=== PATIENT | male | born 1955 | race Caucasian/White ===

== ENCOUNTER 2017-08-23 16:26 | Emergency (ER) | payer OTHER ==
[2017-08-23] MEDS ORDERED: SODIUM CHLORIDE 0.9% 1,000 ML IV STA (16:46)
[2017-08-23] MEDS ORDERED: RX INFO: IV CONTRAST WAS GIVEN 1 EACH MISC MISCELLANE PRN (16:46)
[2017-08-23 17:04] LABS: Basophils % (A) 0 %; Eosinophils # (A) 0.3 k/uL (0-0.7); Eosinophils % (A) 3 %; HCT 40.7 % (39.0-53.0); Lymphocytes # (A) 1.6 k/uL (1.0-4.8); Lymphocytes % (A) 14 %; MCH 30.2 pg (25.0-35.0); MCHC 34.3 g/dL (31.0-37.0); MCV 88.1 fL (80.0-100.0); Mean Platelet Volume 7.6; Monocytes # (A) 0.6 k/uL (0-1.0); Monocytes % (A) 6 %; Neutrophils # (A) 8.4 k/uL (1.3-7.7); Neutrophils % (A) 75 %; Platelet Count 220 k/uL (150-450); RBC 4.62 m/uL (4.30-5.90); RDW 12.7 % (11.5-15.5); WBC 11.2 k/uL (3.8-10.6)
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
[2017-08-23 17:18] LABS: Partial Thromboplastin Time 22.5 sec (22.0-30.0); Prothrombin Time 9.7 sec (9.0-12.0)
[2017-08-23 17:22] LABS: ALT 54 U/L (21-72); AST 26 U/L (17-59); Albumin 3.9 g/dL (3.5-5.0); Alkaline Phosphatase 107 U/L (38-126); Anion Gap 13 mmol/L; Blood Urea Nitrogen 17 mg/dL (9-20); Calcium 9.1 mg/dL (8.4-10.2); Carbon Dioxide 23 mmol/L (22-30); Chloride 103 mmol/L (98-107); Glucose 166 mg/dL (74-99); Sodium 139 mmol/L (137-145); Total Bilirubin 0.5 mg/dL (0.2-1.3); Total Protein 6.9 g/dL (6.3-8.2)
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
[2017-08-23] MEDS ORDERED: DIPH,PERTUS(ACELL)TETVAC-LF 0.5 ML VIAL IM ONE (18:44)
[2017-08-23] MEDS ORDERED: MORPHINE SULFATE 4 MG/ML SYRINGE IV STA (18:44)
[2017-08-23] MEDS ORDERED: ONDANSETRON 4 MG/2 ML VIAL IVP STA (18:44)
[2017-08-23 18:47] VITALS: RESP 18
[2017-08-23 19:41] VITALS: BP 133/74; PULSE 75; TEMP 98.2
== END 2017-08-23 19:40 | disposition home or self-care (01) ==
LOC: EC 16:26
DX: S22.41XA Multiple fractures of ribs, right side, initial encounter for closed fracture (principal); J32.9 Chronic sinusitis, unspecified; I10 Essential (primary) hypertension; S01.511A Laceration without foreign body of lip, initial encounter; M48.02 Spinal stenosis, cervical region; K40.90 Unilateral inguinal hernia, without obstruction or gangrene, not specified as recurrent; M40.202 Unspecified kyphosis, cervical region; Z79.899 Other long term (current) drug therapy; Z23 Encounter for immunization; V89.2XXA Person injured in unspecified motor-vehicle accident, traffic, initial encounter; Y92.410 Unspecified street and highway as the place of occurrence of the external cause
CPT/HCPCS: 36415; 93005; 80053; 84484; 85025; 85610; 85730; 73630; 72125; 70450; 71260; 74177; 90715; 99285; 96374; 96375; 96361 ×3; 90471; J2270; J2405; Q9967

== ENCOUNTER → 2017-09-03 | Outpatient (CLI) | payer SELFPAY ==
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
== END | disposition home or self-care (01) ==
LOC: RADXRMAIN 13:32
PROVIDERS: ATTEND Family Medicine
DX: S92.324A Nondisplaced fracture of second metatarsal bone, right foot, initial encounter for closed fracture (principal); V89.2XXA Person injured in unspecified motor-vehicle accident, traffic, initial encounter

== ENCOUNTER 2018-01-02 10:47 | Inpatient (IN) | payer OTHER ==
[2018-01-02] MEDS ORDERED: ONDANSETRON 4 MG/2 ML VIAL IVP STA (11:14)
[2018-01-02] MEDS ORDERED: MORPHINE SULFATE 2 MG/ML SYRINGE IV STA (11:14)
[2018-01-02] MEDS ORDERED: SODIUM CHLORIDE 0.9% 1,000 ML IV STA ×2 (11:14)
[2018-01-02] MEDS ORDERED: PANTOPRAZOLE 40 MG/10 ML VIAL IVP STA (11:14)
[2018-01-02 11:46] LABS: Basophils % (A) 0 %; Eosinophils # (A) 0.2 k/uL (0-0.7); Eosinophils % (A) 1 %; HCT 42.3 % (39.0-53.0); HGB 14.3 gm/dL (13.0-17.5); Lymphocytes % (A) 9 %; MCH 29.7 pg (25.0-35.0); MCHC 33.7 g/dL (31.0-37.0); MCV 88.1 fL (80.0-100.0); Mean Platelet Volume 7.4; Monocytes # (A) 0.7 k/uL (0-1.0); Monocytes % (A) 7 %; Neutrophils % (A) 81 %; Platelet Count 237 k/uL (150-450); RDW 12.5 % (11.5-15.5); WBC 11.1 k/uL (3.8-10.6)
[2018-01-02 11:50] LABS: ALT 153 U/L (21-72); AST 75 U/L (17-59); Albumin 4.2 g/dL (3.5-5.0); Alkaline Phosphatase 187 U/L (38-126); Amylase 92 U/L (30-110); Anion Gap 11 mmol/L; Blood Urea Nitrogen 15 mg/dL (9-20); Carbon Dioxide 23 mmol/L (22-30); Chloride 103 mmol/L (98-107); Glucose 221 mg/dL (74-99); Lipase 921 U/L (23-300); Partial Thromboplastin Time 24.6 sec (22.0-30.0); Prothrombin Time 9.7 sec (9.0-12.0); Sodium 137 mmol/L (137-145); Total Bilirubin 0.7 mg/dL (0.2-1.3); Total Protein 6.8 g/dL (6.3-8.2)
[2018-01-02 12:10] LABS: Potassium 4.5 mmol/L (3.5-5.1)
--- NOTE | 2018-01-02 12:21 | XR ---
EXAMINATION TYPE: XR abdomen acute w cxr DATE OF EXAM: 01/02/2018 COMPARISON: NONE HISTORY: Pain TECHNIQUE: Single view of the chest and 2 views of the abdomen are submitted. FINDINGS: Single view of the chest fails demonstrate evidence for acute pulmonary disease. There is no evidence for pneumoperitoneum. The bowel gas pattern is unremarkable as there is air throughout nondilated small and large bowel. No sizeable air fluid levels.No mass effects are seen. No unusual calcifications. Pelvic phleboliths noted. IMPRESSION: 1. Unremarkable study.
[2018-01-02] MEDS ORDERED: MORPHINE SULFATE 2 MG/ML SYRINGE IV ONE (13:00)
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
[2018-01-02] MEDS ORDERED: NALOXONE 0.4 MG/ML 1 ML VIAL IV PRN (13:06)
[2018-01-02] MEDS ORDERED: ACETAMINOPHEN TAB 325 MG TAB PO PRN (13:06)
[2018-01-02] MEDS ORDERED: ONDANSETRON 4 MG/2 ML VIAL IVP PRN ×2 (13:06→15:13)
[2018-01-02] MEDS ORDERED: ONDANSETRON 8 MG in SODIUM CHLORIDE 0.9% 50 ML IVPB PRN (13:21)
[2018-01-02] MEDS ORDERED: IOPAMIDOL-300 CONTRAST 30 ML VIAL (ORAL USE) PO PRN (13:32)
[2018-01-02] MEDS ORDERED: THIAMINE 100 MG/ML 2 ML VIAL IM STA (13:47)
[2018-01-02] MEDS ORDERED: LORazepam 2 MG/ML INJ IV PRN ×3 (13:47)
--- NOTE | 2018-01-02 13:47 | P.HPIM ---
History of Present Illness H&P Date: 01/02/18 Chief Complaint: Epigastric abdominal pain This is a 62-year-old male, patient of [facility]. He has a known past medical history of hypertension, diabetes mellitus type 2, pancreatitis and daily alcohol use. Patient presents to the emergency room with chief complaint of abdominal pain in the epigastric area. Patient reports that it radiates across the upper abdomen. I he is also been having some nausea no actual vomiting. No change in bowel movements. Patient has been diagnosed with pancreatitis back in August and has been having off-and-on abdominal discomfort since then. His symptoms became very severe around 5:00 this morning no pain relief with his [place]. Therefore he presented to the emergency room. He reports yesterday he had been seen by a GI specialist, Dr. Beltran out of [place] and had undergone endoscopic ultrasound. Patient was told that his pancreas was inflamed. ER is trying to obtain this report. Abdominal x-ray completed which was unremarkable. White count 11.1, AST 75 ALT 153 alk phos 187 , lipase 921 and amylase 92. Patient's been diagnosed with an acute pancreatitis. GI service has been consulted. A computed tomography scan of the abdomen and pelvis with contrast will be ordered. Patient is started on normal saline at 100 mL an hour. Keep nothing by mouth. Zofran and Protonix also ordered. Patient denies any fever or chills or sweats. Denies any chest pain or shortness of breath. Denies any bowel movement changes or burning with urination. Patient drinks about 2-3 beers daily. Patient has been educated that he needs to stop drinking alcohol. Patient denies any history of gallstones or high triglycerides. Patient receiving IV morphine as needed for pain control Review of Systems Please refer to HPI otherwise unremarkable Past Medical History Past Medical History: Hypertension Additional Past Medical History / Comment(s): pancreatitis History of Any Multi-Drug Resistant Organisms: None Reported Past Surgical History: Appendectomy Past Psychological History: No Psychological Hx Reported Smoking Status: Former smoker Past Alcohol Use History: Daily Past Drug Use History: None Reported Medications and Allergies Home Medications Medication Instructions Recorded Confirmed Type Lisinopril [Zestril] 5 mg PO DAILY 08/23/17 01/02/18 History Dicyclomine [Bentyl] 20 mg PO BID 01/02/18 01/02/18 History HYDROcodone/APAP 10-325MG [[place] 1 tab PO BID 01/02/18 01/02/18 History 10-325] Naproxen 500 mg PO BID 01/02/18 01/02/18 History Omeprazole 40 mg PO DAILY 01/02/18 01/02/18 History Ondansetron [Zofran] 4 mg PO TID PRN 01/02/18 01/02/18 History metFORMIN HCL [Glucophage] 500 mg PO DAILY 01/02/18 01/02/18 History Allergies Allergy/AdvReac Type Severity Reaction Status Date / Time No Known Allergies Allergy Verified 01/02/18 11:06 Physical Exam Vitals: Vital Signs Temp Pulse Resp BP Pulse Ox 01/02/18 13:30 97.9 F 68 18 160/80 98 01/02/18 10:52 97.7 F 64 18 149/89 98 Intake and Output 01/01/18 01/02/18 01/02/18 22:59 06:59 14:59 Other: Weight 94.256 kg Head normocephalic Neck supple Lungs clear to auscultation bilaterally no wheezing or crackles Heart regular rate and rhythm S1-S2, no rub or gallop Abdomen is soft epigastric tenderness nondistended positive bowel sounds no hepatosplenomegaly Extremities no edema Neuro alert and orientated to 3 Results CBC & Chem 7: 01/02/18 11:32 01/02/18 11:32 Labs: Abnormal Lab Results - Last 24 Hours (Table) 01/02/18 01/02/18 Range/Units 11:32 11:32 WBC 11.1 H (3.8-10.6) k/uL Neutrophils # 9.0 H (1.3-7.7) k/uL Glucose 221 H (74-99) mg/dL AST 75 H (17-59) U/L ALT 153 H (21-72) U/L Alkaline Phosphatase 187 H (38-126) U/L Lipase 921 H (23-300) U/L Assessment and Plan Assessment: 1. Acute pancreatitis: Likely secondary to alcohol. However, LFTs are elevated. Also need to evaluate for gallstone pancreatitis. GI service consulted. Computed tomography scan of the abdomen with contrast has been ordered. Start IV fluids normal saline at 100 mL an hour. Continue IV morphine and [place] for pain control. Keep nothing by mouth except meds. Repeat amylase lipase and LFTs in a.m. Lipase 921, AST 75, ALT 153 and alk phos 187 2. Essential hypertension: Resume lisinopril 3. Diabetes mellitus type 2: Hold metformin during hospitalization. Place patient on sliding scale coverage 4. Leukocytosis likely secondary to the pancreatitis. Repeat in a.m. Continue to monitor. 5. Daily alcohol use: Placed patient on the CIWA protocol with multivitamin and thiamine and folic acid GI and DVT prophylaxis Protonix and Lovenox Time with Patient: Greater than 30 (Greater than 60% of the total time spent in counseling and coordination of care.I performed an examination of the patient and discussed their management with the physician Post Production Assistant. I have reviewed the Physician Post Production Assistant's notes and agree with the documented findings and plan of care)
[2018-01-02] MEDS: MORPHINE SULFATE 2 MG/ML SYRINGE IV PRN (16:54)
--- NOTE | 2018-01-02 17:06 | CT ---
EXAMINATION TYPE: CT abdomen pelvis w con DATE OF EXAM: 01/02/2018 REFERENCE: Previous study dated 08/23/2017. HISTORY: abdominal pain, pancreatitis HISTORY: Epigastric pain, nausea and vomiting x6 days. REFERENCE: NONE CT DLP: 2168.5 mGy Automated exposure control for dose reduction was used. TECHNIQUE: Helical acquisition through the abdomen and pelvis was obtained following the oral ingesti on of without Oral Contrast and following intravenous administration of 125ml mL of Isovue 370. The d maria esther was reformatted in axial, coronal and sagittal projections. FINDINGS: There is dependent atelectasis in the dependent portions of the lungs. There is no pleural or pericardial fluid. The heart is mildly enlarged. There is a small hiatal hernia. Within the abdomen, the liver is prominent measuring 23 cm. It is known attenuation and likely fatty infiltrated. The spleen and gallbladder are normal. Both adrenal glands are normal. Once again there is dilatation of the pancreatic duct proximally which measures approximately centime ters. There is peripancreatic inflammatory change. There is no pseudocyst formation. No pancreatic ma sses seen. Both kidneys demonstrate function and appear morphologically normal. There is no significant retroperitoneal, iliac or inguinal adenopathy. The bladder is unremarkable. There is minimal calcification of the prostate gland There is no significant diverticular change and there is no radiographic evidence of diverticulitis. The appendix is not visualized. There is a direct inguinal hernia on the right containing fat. The colon is peaking into it. Small bowel loops are unremarkable. There is no free fluid and no free air. There is hypertrophic spondylosis and facet arthropathy within the spine. There is a superior endplat e infraction of L2, unchanged from previous. IMPRESSION: 1. FINDINGS CONSISTENT WITH ACUTE PANCREATITIS. 2. HEPATOMEGALY AND FATTY INFILTRATION OF THE LIVER. 3. DIRECT INGUINAL HERNIA ON THE RIGHT CONTAINING FAT ONLY. 4. DEGENERATIVE CHANGES WITHIN THE SPINE. 5. SMALL HIATAL HERNIA.
[2018-01-02] MEDS: INSULIN ASPART 100 UNIT/ML 1 ML 10 ML VIAL SQ SCH ×2 (17:30→21:47)
[2018-01-02 17:44] LABS: Glucose,Whole Blood 163 mg/dL (75-99)
[2018-01-02 20:28] LABS: Glucose,Whole Blood 131 mg/dL (75-99)
[2018-01-02] MEDS: HYDROcodone/APAP 10-325MG 1 EACH TAB PO SCH (20:41)
[2018-01-02] MEDS: DICYCLOMINE 20 MG TAB PO SCH (20:41)
[2018-01-03 07:27] LABS: Glucose,Whole Blood 159 mg/dL (75-99)
[2018-01-03] MEDS ORDERED: metFORMIN 500 MG TAB PO SCH (07:30)
[2018-01-03] MEDS: INSULIN ASPART 100 UNIT/ML 1 ML 10 ML VIAL SQ SCH ×4 (07:40→21:25)
[2018-01-03] MEDS: ENOXAPARIN 40 MG/0.4 ML SYRINGE SQ SCH (07:42)
[2018-01-03] MEDS: THIAMINE 100 MG TAB PO SCH (07:42)
[2018-01-03] MEDS: LISINOPRIL 5 MG TAB PO SCH (07:42)
[2018-01-03] MEDS: PANTOPRAZOLE 40 MG/10 ML VIAL IV SCH (07:43)
[2018-01-03] MEDS: DICYCLOMINE 20 MG TAB PO SCH ×2 (07:44→21:24)
[2018-01-03 07:50] LABS: Basophils # (A) 0.1 k/uL (0-0.2); Basophils % (A) 1 %; Eosinophils # (A) 0.2 k/uL (0-0.7); Eosinophils % (A) 2 %; HCT 37.9 % (39.0-53.0); HGB 12.9 gm/dL (13.0-17.5); Lymphocytes # (A) 1.2 k/uL (1.0-4.8); Lymphocytes % (A) 14 %; MCH 30.7 pg (25.0-35.0); MCV 90.2 fL (80.0-100.0); Mean Platelet Volume 7.3; Monocytes # (A) 0.7 k/uL (0-1.0); Monocytes % (A) 8 %; Neutrophils # (A) 6.4 k/uL (1.3-7.7); Neutrophils % (A) 74 %; Platelet Count 245 k/uL (150-450); RDW 12.5 % (11.5-15.5); WBC 8.7 k/uL (3.8-10.6)
[2018-01-03] MEDS: HYDROcodone/APAP 10-325MG 1 EACH TAB PO SCH ×2 (07:50→21:24)
[2018-01-03 07:58] LABS: ALT 104 U/L (21-72); AST 31 U/L (17-59); Albumin 3.6 g/dL (3.5-5.0); Alkaline Phosphatase 142 U/L (38-126); Amylase 36 U/L (30-110); Anion Gap 8 mmol/L; Blood Urea Nitrogen 8 mg/dL (9-20); Calcium 8.6 mg/dL (8.4-10.2); Carbon Dioxide 28 mmol/L (22-30); Chloride 102 mmol/L (98-107); Glucose 161 mg/dL (74-99); Lipase 52 U/L (23-300); Potassium 4.6 mmol/L (3.5-5.1); Sodium 138 mmol/L (137-145); Total Bilirubin 0.8 mg/dL (0.2-1.3); Total Protein 5.9 g/dL (6.3-8.2)
[2018-01-03 11:36] LABS: Glucose,Whole Blood 160 mg/dL (75-99)
[2018-01-03] MEDS: FOLIC ACID 1 MG TAB PO SCH (12:34)
[2018-01-03] MEDS: MULTIVITAMINS, THERA 1 EACH TAB PO SCH (12:34)
--- NOTE | 2018-01-03 12:57 | P.PN ---
Subjective Progress Note Date: 01/03/18 This is a 62-year-old male, patient of [facility]. He has a known past medical history of hypertension, diabetes mellitus type 2, pancreatitis and daily alcohol use. Patient presents to the emergency room with chief complaint of abdominal pain in the epigastric area. Patient reports that it radiates across the upper abdomen. I he is also been having some nausea no actual vomiting. No change in bowel movements. Patient has been diagnosed with pancreatitis back in August and has been having off-and-on abdominal discomfort since then. His symptoms became very severe around 5:00 this morning no pain relief with his [place]. Therefore he presented to the emergency room. He reports yesterday he had been seen by a GI specialist, Dr. Beltran out of [place] and had undergone endoscopic ultrasound. Patient was told that his pancreas was inflamed. ER is trying to obtain this report. Abdominal x-ray completed which was unremarkable. White count 11.1, AST 75 ALT 153 alk phos 187 , lipase 921 and amylase 92. Patient's been diagnosed with an acute pancreatitis. GI service has been consulted. A computed tomography scan of the abdomen and pelvis with contrast will be ordered. Patient is started on normal saline at 100 mL an hour. Keep nothing by mouth. Zofran and Protonix also ordered. Patient denies any fever or chills or sweats. Denies any chest pain or shortness of breath. Denies any bowel movement changes or burning with urination. Patient drinks about 2-3 beers daily. Patient has been educated that he needs to stop drinking alcohol. Patient denies any history of gallstones or high triglycerides. Patient receiving IV morphine as needed for pain control Objective - Vital Signs Vital signs: Vital Signs Temp 98.3 F 01/03/18 05:00 Pulse 69 01/03/18 05:00 Resp 16 01/03/18 05:00 BP 133/76 01/03/18 05:00 Pulse Ox 94 L 01/03/18 05:00 Intake & Output 01/02/18 01/03/18 01/03/18 18:59 06:59 18:59 Intake Total 1150 Balance 1150 Weight 93.894 kg Intake: Intake, IV Titration 1150 Amount Sodium Chloride 0.9% 1, 1150 000 ml @ 100 mls/hr IV . Q10H STA Rx#:[id number] Other: # Voids 1 - Exam Head normocephalic and atraumatic Neck supple no JVD no goiter Lungs clear to auscultation bilaterally no wheezing or crackles Heart regular rate and rhythm S1-S2, no rub or gallop Abdomen is soft epigastric tenderness nondistended positive bowel sounds no hepatosplenomegaly Extremities no edema Neuro alert and orientated to 3 - Labs CBC & Chem 7: 01/03/18 07:03 01/03/18 07:03 Labs: Abnormal Lab Results - Last 24 Hours (Table) 01/02/18 01/02/18 01/02/18 Range/Units 11:33 17:11 20:27 RBC (4.30-5.90) m/uL Hgb (13.0-17.5) gm/dL Hct (39.0-53.0) % BUN (9-20) mg/dL Glucose (74-99) mg/dL POC Glucose (mg/dL) 163 H 131 H (75-99) mg/dL Hemoglobin A1c 8.0 H (4.0-6.0) % ALT (21-72) U/L Alkaline Phosphatase (38-126) U/L Total Protein (6.3-8.2) g/dL 01/03/18 01/03/18 01/03/18 Range/Units 07:03 07:03 07:25 RBC 4.20 L (4.30-5.90) m/uL Hgb 12.9 L (13.0-17.5) gm/dL Hct 37.9 L (39.0-53.0) % BUN 8 L (9-20) mg/dL Glucose 161 H (74-99) mg/dL POC Glucose (mg/dL) 159 H (75-99) mg/dL Hemoglobin A1c (4.0-6.0) % ALT 104 H (21-72) U/L Alkaline Phosphatase 142 H (38-126) U/L Total Protein 5.9 L (6.3-8.2) g/dL 01/03/18 Range/Units 11:20 RBC (4.30-5.90) m/uL Hgb (13.0-17.5) gm/dL Hct (39.0-53.0) % BUN (9-20) mg/dL Glucose (74-99) mg/dL POC Glucose (mg/dL) 160 H (75-99) mg/dL Hemoglobin A1c (4.0-6.0) % ALT (21-72) U/L Alkaline Phosphatase (38-126) U/L Total Protein (6.3-8.2) g/dL Assessment and Plan Plan: 1. Acute pancreatitis: Likely secondary to alcohol. However, LFTs are elevated. Also need to evaluate for gallstone pancreatitis. GI service consulted. Computed tomography scan of the abdomen with contrast has been ordered. Start IV fluids normal saline at 100 mL an hour. Continue IV morphine and [place] for pain control. Keep nothing by mouth except meds. Repeat amylase lipase and LFTs in a.m. Lipase 921 yesterday and down to 52 today, will start patient on full liquid diet and monitor 2. Essential hypertension: Resume lisinopril 3. Diabetes mellitus type 2: Hold metformin during hospitalization. Place patient on sliding scale coverage 4. Leukocytosis likely secondary to the pancreatitis. Repeat in a.m. Continue to monitor. 5. Daily alcohol use: Placed patient on the CIWA protocol with multivitamin and thiamine and folic acid GI and DVT prophylaxis Protonix and Lovenox
[2018-01-03 17:21] LABS: Glucose,Whole Blood 221 mg/dL (75-99)
[2018-01-03 20:39] LABS: Glucose,Whole Blood 195 mg/dL (75-99)
[2018-01-04 07:40] LABS: Glucose,Whole Blood 153 mg/dL (75-99)
[2018-01-04 07:46] LABS: Basophils % (A) 1 %; Eosinophils # (A) 0.3 k/uL (0-0.7); Eosinophils % (A) 4 %; HCT 39.8 % (39.0-53.0); HGB 13.1 gm/dL (13.0-17.5); Lymphocytes # (A) 1.6 k/uL (1.0-4.8); Lymphocytes % (A) 22 %; MCH 29.8 pg (25.0-35.0); MCV 90.3 fL (80.0-100.0); Mean Platelet Volume 7.2; Monocytes # (A) 0.6 k/uL (0-1.0); Monocytes % (A) 8 %; Neutrophils # (A) 4.5 k/uL (1.3-7.7); Neutrophils % (A) 63 %; Platelet Count 242 k/uL (150-450); RBC 4.41 m/uL (4.30-5.90); RDW 12.6 % (11.5-15.5); WBC 7.1 k/uL (3.8-10.6)
[2018-01-04 07:51] LABS: ALT 106 U/L (21-72); AST 37 U/L (17-59); Albumin 3.6 g/dL (3.5-5.0); Alkaline Phosphatase 178 U/L (38-126); Amylase 34 U/L (30-110); Anion Gap 6 mmol/L; Blood Urea Nitrogen 7 mg/dL (9-20); Calcium 8.9 mg/dL (8.4-10.2); Carbon Dioxide 30 mmol/L (22-30); Chloride 105 mmol/L (98-107); Glucose 159 mg/dL (74-99); Lipase <10 U/L (23-300); Potassium 4.5 mmol/L (3.5-5.1); Sodium 141 mmol/L (137-145); Total Bilirubin 0.7 mg/dL (0.2-1.3); Total Protein 6.2 g/dL (6.3-8.2)
[2018-01-04] MEDS: DICYCLOMINE 20 MG TAB PO SCH ×2 (08:14→20:43)
[2018-01-04] MEDS: THIAMINE 100 MG TAB PO SCH (08:16)
[2018-01-04] MEDS: ENOXAPARIN 40 MG/0.4 ML SYRINGE SQ SCH (08:16)
[2018-01-04] MEDS: LISINOPRIL 5 MG TAB PO SCH (08:16)
[2018-01-04] MEDS: HYDROcodone/APAP 10-325MG 1 EACH TAB PO SCH ×2 (08:16→20:42)
[2018-01-04] MEDS: INSULIN ASPART 100 UNIT/ML 1 ML 10 ML VIAL SQ SCH ×4 (08:16→20:43)
[2018-01-04] MEDS: PANTOPRAZOLE 40 MG/10 ML VIAL IV SCH (08:17)
[2018-01-04 10:49] LABS: Glucose,Whole Blood 262 mg/dL (75-99)
[2018-01-04] MEDS: MULTIVITAMINS, THERA 1 EACH TAB PO SCH (11:30)
[2018-01-04] MEDS: FOLIC ACID 1 MG TAB PO SCH (11:30)
--- NOTE | 2018-01-04 14:25 | P.PN ---
Subjective Progress Note Date: 01/04/18 This is a 62-year-old male, patient of [facility]. He has a known past medical history of hypertension, diabetes mellitus type 2, pancreatitis and daily alcohol use. Patient presents to the emergency room with chief complaint of abdominal pain in the epigastric area. Patient reports that it radiates across the upper abdomen. I he is also been having some nausea no actual vomiting. No change in bowel movements. Patient has been diagnosed with pancreatitis back in August and has been having off-and-on abdominal discomfort since then. His symptoms became very severe around 5:00 this morning no pain relief with his [place]. Therefore he presented to the emergency room. He reports yesterday he had been seen by a GI specialist, Dr. Beltran out of [place] and had undergone endoscopic ultrasound. Patient was told that his pancreas was inflamed. ER is trying to obtain this report. Abdominal x-ray completed which was unremarkable. White count 11.1, AST 75 ALT 153 alk phos 187 , lipase 921 and amylase 92. Patient's been diagnosed with an acute pancreatitis. GI service has been consulted. A computed tomography scan of the abdomen and pelvis with contrast will be ordered. Patient is started on normal saline at 100 mL an hour. Keep nothing by mouth. Zofran and Protonix also ordered. Patient denies any fever or chills or sweats. Denies any chest pain or shortness of breath. Denies any bowel movement changes or burning with urination. Patient drinks about 2-3 beers daily. Patient has been educated that he needs to stop drinking alcohol. Patient denies any history of gallstones or high triglycerides. Patient receiving IV morphine as needed for pain control On 01/04/2018 patient is alert and oriented 3 in no apparent distress he is complaining of some epigastric pain today otherwise no complaints there is no nausea or vomiting no chest pain no shortness of breath no cough no diarrhea and no urinary symptoms Objective - Vital Signs Vital signs: Vital Signs Temp 97.8 F 01/04/18 07:00 Pulse 61 01/04/18 07:00 Resp 14 01/04/18 08:00 BP 136/80 01/04/18 07:00 Pulse Ox 95 01/04/18 07:00 Intake & Output 01/03/18 01/04/18 01/04/18 18:59 06:59 18:59 Intake Total 6553 622 6799 Balance 5420 074 4003 Intake: IV 800 600 0.9 800 600 Intake, IV Titration 800 Amount Sodium Chloride 0.9% 1, 800 000 ml @ 100 mls/hr IV . Q10H STA Rx#:[id number] Oral 600 1200 Other: # Voids 2 1 1 - Exam Head normocephalic and atraumatic Neck supple no JVD no goiter Lungs clear to auscultation bilaterally no wheezing or crackles Heart regular rate and rhythm S1-S2, no rub or gallop Abdomen is soft epigastric tenderness nondistended positive bowel sounds no hepatosplenomegaly Extremities no edema Neuro alert and orientated to 3 - Labs CBC & Chem 7: 01/04/18 07:18 01/04/18 07:18 Labs: Abnormal Lab Results - Last 24 Hours (Table) 01/03/18 01/03/18 01/04/18 Range/Units 17:20 20:38 07:18 BUN 7 L (9-20) mg/dL Glucose 159 H (74-99) mg/dL POC Glucose (mg/dL) 221 H 195 H (75-99) mg/dL ALT 106 H (21-72) U/L Alkaline Phosphatase 178 H (38-126) U/L Total Protein 6.2 L (6.3-8.2) g/dL Lipase <10 L (23-300) U/L 01/04/18 01/04/18 Range/Units 07:33 10:47 BUN (9-20) mg/dL Glucose (74-99) mg/dL POC Glucose (mg/dL) 153 H 262 H (75-99) mg/dL ALT (21-72) U/L Alkaline Phosphatase (38-126) U/L Total Protein (6.3-8.2) g/dL Lipase (23-300) U/L Assessment and Plan Plan: 1. Acute pancreatitis: Likely secondary to alcohol. However, LFTs are elevated. Also need to evaluate for gallstone pancreatitis. GI service consulted. Computed tomography scan of the abdomen with contrast has been ordered. Start IV fluids normal saline at 100 mL an hour. Continue IV morphine and [place] for pain control. Patient was started on full liquid diet yesterday he is having epigastric pain today Will continue with same diet we won 't increase today Will monitor progress to tomorrow 2. Essential hypertension: Resume lisinopril 3. Diabetes mellitus type 2: Hold metformin during hospitalization. Place patient on sliding scale coverage 4. Leukocytosis likely secondary to the pancreatitis. Repeat in a.m. Continue to monitor. 5. Daily alcohol use: Placed patient on the CIWA protocol with multivitamin and thiamine and folic acid GI and DVT prophylaxis Protonix and Lovenox
[2018-01-04 17:01] LABS: Glucose,Whole Blood 166 mg/dL (75-99)
[2018-01-04 20:45] LABS: Glucose,Whole Blood 214 mg/dL (75-99)
[2018-01-05] MEDS: MORPHINE SULFATE 2 MG/ML SYRINGE IV PRN (00:29)
[2018-01-05 07:22] LABS: Glucose,Whole Blood 167 mg/dL (75-99)
[2018-01-05] MEDS: INSULIN ASPART 100 UNIT/ML 1 ML 10 ML VIAL SQ SCH ×4 (07:27→21:41)
[2018-01-05 08:14] LABS: Basophils % (A) 0 %; Eosinophils # (A) 0.2 k/uL (0-0.7); Eosinophils % (A) 3 %; HCT 39.9 % (39.0-53.0); HGB 12.8 gm/dL (13.0-17.5); Lymphocytes % (A) 15 %; MCH 28.9 pg (25.0-35.0); MCHC 32.1 g/dL (31.0-37.0); Mean Platelet Volume 7.7; Monocytes # (A) 0.7 k/uL (0-1.0); Monocytes % (A) 10 %; Neutrophils # (A) 4.7 k/uL (1.3-7.7); Neutrophils % (A) 69 %; Platelet Count 239 k/uL (150-450); RBC 4.44 m/uL (4.30-5.90); RDW 12.6 % (11.5-15.5); WBC 6.7 k/uL (3.8-10.6)
[2018-01-05 08:26] LABS: ALT 215 U/L (21-72); AST 161 U/L (17-59); Albumin 3.6 g/dL (3.5-5.0); Alkaline Phosphatase 244 U/L (38-126); Anion Gap 7 mmol/L; Blood Urea Nitrogen 6 mg/dL (9-20); Calcium 8.9 mg/dL (8.4-10.2); Carbon Dioxide 25 mmol/L (22-30); Chloride 105 mmol/L (98-107); Glucose 174 mg/dL (74-99); Potassium 4.5 mmol/L (3.5-5.1); Sodium 137 mmol/L (137-145); Total Bilirubin 0.7 mg/dL (0.2-1.3); Total Protein 6.2 g/dL (6.3-8.2)
[2018-01-05] MEDS: DICYCLOMINE 20 MG TAB PO SCH ×2 (08:45→21:39)
[2018-01-05] MEDS: HYDROcodone/APAP 10-325MG 1 EACH TAB PO SCH ×2 (08:45→21:40)
[2018-01-05] MEDS: ENOXAPARIN 40 MG/0.4 ML SYRINGE SQ SCH (08:46)
[2018-01-05] MEDS: THIAMINE 100 MG TAB PO SCH (08:46)
[2018-01-05] MEDS: LISINOPRIL 5 MG TAB PO SCH (08:46)
[2018-01-05] MEDS: PANTOPRAZOLE 40 MG/10 ML VIAL IV SCH (08:46)
--- NOTE | 2018-01-05 10:44 | P.PN ---
Subjective Progress Note Date: 01/05/18 This is a 62-year-old male, patient of [facility]. He has a known past medical history of hypertension, diabetes mellitus type 2, pancreatitis and daily alcohol use. Patient presents to the emergency room with chief complaint of abdominal pain in the epigastric area. Patient reports that it radiates across the upper abdomen. I he is also been having some nausea no actual vomiting. No change in bowel movements. Patient has been diagnosed with pancreatitis back in August and has been having off-and-on abdominal discomfort since then. His symptoms became very severe around 5:00 this morning no pain relief with his [place]. Therefore he presented to the emergency room. He reports yesterday he had been seen by a GI specialist, Dr. Beltran out of [place] and had undergone endoscopic ultrasound. Patient was told that his pancreas was inflamed. ER is trying to obtain this report. Abdominal x-ray completed which was unremarkable. White count 11.1, AST 75 ALT 153 alk phos 187 , lipase 921 and amylase 92. Patient's been diagnosed with an acute pancreatitis. GI service has been consulted. A computed tomography scan of the abdomen and pelvis with contrast will be ordered. Patient is started on normal saline at 100 mL an hour. Keep nothing by mouth. Zofran and Protonix also ordered. Patient denies any fever or chills or sweats. Denies any chest pain or shortness of breath. Denies any bowel movement changes or burning with urination. Patient drinks about 2-3 beers daily. Patient has been educated that he needs to stop drinking alcohol. Patient denies any history of gallstones or high triglycerides. Patient receiving IV morphine as needed for pain control On 01/04/2018 patient is alert and oriented 3 in no apparent distress he is complaining of some epigastric pain today otherwise no complaints there is no nausea or vomiting no chest pain no shortness of breath no cough no diarrhea and no urinary symptoms 01/05/2018 patient was started on a full liquid diet on Friday. Yesterday evening around 11:00 patient had severe abdominal pain in the epigastric area with a bandlike description around the upper abdomen. He reports that the pain was almost more severe than the pain he had when he presented to the emergency room. Patient did not eat his breakfast this morning. The abdominal pain he felt did radiate up into the chest. He does feel that it's more muscle pain in the chest wall. He denies any shortness of breath. Denies any nausea or vomiting. He has been using the IV morphine and with some relief. Patient reports that GI service did evaluate him. A repeat amylase and lipase have been ordered. He has been made nothing by mouth except for medications. AST is increased to 161 ALT increased to 215 and alk phos increased to 244 Objective - Vital Signs Vital signs: Vital Signs Temp 97.3 F L 01/05/18 07:00 Pulse 65 01/05/18 07:00 Resp 18 01/05/18 07:00 BP 139/81 01/05/18 07:00 Pulse Ox 96 01/05/18 07:00 Intake & Output 01/04/18 01/05/18 01/05/18 18:59 06:59 18:59 Intake Total 1800 1150 Balance 1800 1150 Intake: IV 600 1150 0.9 600 1150 Oral 1200 Other: # Voids 1 1 - Exam Head normocephalic Neck supple Lungs clear to auscultation bilaterally no wheezing or crackles Heart regular rate and rhythm S1-S2, no rub or gallop Abdomen is soft nontender nondistended positive bowel sounds no hepatosplenomegaly Extremities no edema Neuro alert and orientated to 3 - Labs CBC & Chem 7: 01/05/18 07:55 01/05/18 07:55 Labs: Abnormal Lab Results - Last 24 Hours (Table) 01/04/18 01/04/18 01/04/18 Range/Units 10:47 14:53 16:59 Hgb (13.0-17.5) gm/dL BUN (9-20) mg/dL Creatinine (0.66-1.25) mg/dL Glucose (74-99) mg/dL POC Glucose (mg/dL) 262 H 166 H (75-99) mg/dL AST (17-59) U/L ALT (21-72) U/L Alkaline Phosphatase (38-126) U/L Total Protein (6.3-8.2) g/dL Lipase <10 L (23-300) U/L 01/04/18 01/05/18 01/05/18 Range/Units 20:34 07:19 07:55 Hgb 12.8 L (13.0-17.5) gm/dL BUN (9-20) mg/dL Creatinine (0.66-1.25) mg/dL Glucose (74-99) mg/dL POC Glucose (mg/dL) 214 H 167 H (75-99) mg/dL AST (17-59) U/L ALT (21-72) U/L Alkaline Phosphatase (38-126) U/L Total Protein (6.3-8.2) g/dL Lipase (23-300) U/L / Range/Units 07:55 Hgb (13.0-17.5) gm/dL BUN 6 L (9-20) mg/dL Creatinine 0.61 L (0.66-1.25) mg/dL Glucose 174 H (74-99) mg/dL POC Glucose (mg/dL) (75-99) mg/dL AST 161 H (17-59) U/L ALT 215 H (21-72) U/L Alkaline Phosphatase 244 H (38-126) U/L Total Protein 6.2 L (6.3-8.2) g/dL Lipase (23-300) U/L Assessment and Plan Assessment: 1. Acute pancreatitis: Likely secondary to alcohol. However, LFTs are elevated. Also need to evaluate for gallstone pancreatitis. GI service consulted. Computed tomography scan of the abdomen with contrast has been ordered. Start IV fluids normal saline at 100 mL an hour. Continue IV morphine and [place] for pain control. Patient has had increased and his abdominal pain through the night. We will make him nothing by mouth and check an amylase and lipase. LFTs are trending up. 2. Essential hypertension: Resume lisinopril 3. Diabetes mellitus type 2: Hold metformin during hospitalization. Hyperglycemia likely related to the liquid diet. Continue with sliding scale coverage 4. Leukocytosis likely secondary to the pancreatitis. Resolved 5. Daily alcohol use: Placed patient on the CIWA protocol with multivitamin and thiamine and folic acid GI and DVT prophylaxis Protonix and Lovenox I performed an examination of the patient and discussed their management with the physician Print Inspector. I have reviewed the Physician Print Inspector's notes and agree with the documented findings and plan of care
[2018-01-05 11:05] LABS: Amylase 31 U/L (30-110); Lipase 34 U/L (23-300)
[2018-01-05 11:28] LABS: Glucose,Whole Blood 179 mg/dL (75-99)
[2018-01-05] MEDS: MULTIVITAMINS, THERA 1 EACH TAB PO SCH (12:52)
[2018-01-05] MEDS: FOLIC ACID 1 MG TAB PO SCH (12:52)
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
[2018-01-05 16:59] LABS: Glucose,Whole Blood 119 mg/dL (75-99)
[2018-01-05 20:18] LABS: Glucose,Whole Blood 142 mg/dL (75-99)
[2018-01-05 21:19] VITALS: RESP 16
[2018-01-06] MEDS ORDERED: SODIUM CHLORIDE 0.9% 1,000 ML IV SCH ×2 (02:45→09:45)
[2018-01-06 07:04] LABS: Glucose,Whole Blood 120 mg/dL (75-99)
[2018-01-06] MEDS: INSULIN ASPART 100 UNIT/ML 1 ML 10 ML VIAL SQ SCH ×2 (07:57→12:59)
[2018-01-06] MEDS: PANTOPRAZOLE 40 MG/10 ML VIAL IV SCH (08:08)
[2018-01-06] MEDS: THIAMINE 100 MG TAB PO SCH (08:08)
[2018-01-06] MEDS: DICYCLOMINE 20 MG TAB PO SCH (08:08)
[2018-01-06] MEDS: LISINOPRIL 5 MG TAB PO SCH (08:08)
[2018-01-06] MEDS: ENOXAPARIN 40 MG/0.4 ML SYRINGE SQ SCH (08:10)
[2018-01-06] MEDS: HYDROcodone/APAP 10-325MG 1 EACH TAB PO SCH (08:11)
[2018-01-06 09:00] LABS: ALT 153 U/L (21-72); AST 50 U/L (17-59); Albumin 3.8 g/dL (3.5-5.0); Alkaline Phosphatase 210 U/L (38-126); Anion Gap 12 mmol/L; Blood Urea Nitrogen 8 mg/dL (9-20); Calcium 8.5 mg/dL (8.4-10.2); Carbon Dioxide 23 mmol/L (22-30); Chloride 104 mmol/L (98-107); Glucose 120 mg/dL (74-99); Potassium 4.4 mmol/L (3.5-5.1); Sodium 139 mmol/L (137-145); Total Bilirubin 0.7 mg/dL (0.2-1.3); Total Protein 6.2 g/dL (6.3-8.2)
[2018-01-06 09:08] LABS: Basophils # (A) 0.1 k/uL (0-0.2); Basophils % (A) 1 %; Eosinophils # (A) 0.3 k/uL (0-0.7); Eosinophils % (A) 5 %; HCT 40.6 % (39.0-53.0); HGB 13.2 gm/dL (13.0-17.5); Lymphocytes # (A) 1.3 k/uL (1.0-4.8); Lymphocytes % (A) 20 %; MCH 29.4 pg (25.0-35.0); MCHC 32.5 g/dL (31.0-37.0); MCV 90.3 fL (80.0-100.0); Mean Platelet Volume 7.2; Monocytes # (A) 0.5 k/uL (0-1.0); Monocytes % (A) 8 %; Neutrophils % (A) 65 %; Platelet Count 285 k/uL (150-450); RDW 12.5 % (11.5-15.5); WBC 6.3 k/uL (3.8-10.6)
--- NOTE | 2018-01-06 09:46 | P.PN ---
Subjective Progress Note Date: 01/06/18 Principal diagnosis: Pancreatitis transaminitis Feeling better. Requesting diet advancement. Transaminases improved. Afebrile. Abdominal pain improving. Objective - Vital Signs Vital signs: Vital Signs Temp 98.0 F 01/06/18 05:38 Pulse 60 01/06/18 05:38 Resp 16 01/06/18 05:38 BP 128/70 01/06/18 05:38 Pulse Ox 94 L 01/06/18 05:38 Intake & Output 01/05/18 01/06/18 01/06/18 18:59 06:59 18:59 Intake Total 0 900 Balance 0 900 Intake: IV 900 0.9 900 Oral 0 Other: Voiding Method Toilet Toilet # Voids 2 3 # Bowel Movements 2 - Exam General appearance: The patient is alert, oriented, in no acute distress. HET: Head is normocephalic and atraumatic. Pupils are equal and reactive. Oropharynx is clear without lesions. Neck: Supple without lymphadenopathy. Trachea midline. Heart: S1 S2. Regular rate and rhythm. Lungs: No crackles or wheezes are heard. Abdomen: Soft, mild midepigastric upper abdomen tenderness, nondistended with bowel sounds. No peritoneal signs. No palpable organomegaly or masses. Extremities: Normal skin color and turgor. No cyanosis, rash, ulceration, clubbing, or edema. Radial and pedal pulses are 2/4 bilaterally. Neurological: No focal deficits. Strength and sensation are grossly intact. - Labs CBC & Chem 7: 01/06/18 07:52 01/06/18 07:52 Labs: Abnormal Lab Results - Last 24 Hours (Table) 01/05/18 01/05/18 01/05/18 Range/Units 11:27 16:58 20:16 BUN (9-20) mg/dL Creatinine (0.66-1.25) mg/dL Glucose (74-99) mg/dL POC Glucose (mg/dL) 179 H 119 H 142 H (75-99) mg/dL ALT (21-72) U/L Alkaline Phosphatase (38-126) U/L Total Protein (6.3-8.2) g/dL 01/06/18 01/06/18 Range/Units 07:02 07:52 BUN 8 L (9-20) mg/dL Creatinine 0.61 L (0.66-1.25) mg/dL Glucose 120 H (74-99) mg/dL POC Glucose (mg/dL) 120 H (75-99) mg/dL ALT 153 H (21-72) U/L Alkaline Phosphatase 210 H (38-126) U/L Total Protein 6.2 L (6.3-8.2) g/dL Assessment and Plan (1) Acute pancreatitis Narrative/Plan: s/p outpatient EUS 1 week ago results pending Current Visit: Yes Status: Acute Code(s): K85.90 - ACUTE PANCREATITIS WITHOUT NECROSIS OR INFECTION, UNSP SNOMED Code(s): 739296214 (2) Alcohol use Current Visit: Yes Status: Acute Code(s): Z78.9 - OTHER SPECIFIED HEALTH STATUS SNOMED Code(s): 945288833 (3) Transaminitis Current Visit: Yes Status: Acute Code(s): R74.0 - NONSPEC ELEV OF LEVELS OF TRANSAMNS & LACTIC ACID DEHYDRGNSE SNOMED Code(s): 437281516 Plan: 1. Status post recent EUS; dictated findings biopsy results requested place on chart for review. 2. Low fat diet. 3. Supportive measures. DC per medicine. Assessment and plan of care discussed with Dr. Zelaya
[2018-01-06 11:11] LABS: Glucose,Whole Blood 136 mg/dL (75-99)
[2018-01-06] MEDS: MULTIVITAMINS, THERA 1 EACH TAB PO SCH (13:00)
[2018-01-06] MEDS: FOLIC ACID 1 MG TAB PO SCH (13:00)
--- NOTE | 2018-01-06 14:15 | P.DS ---
Providers Date of admission: 01/02/18 13:06 Expected date of discharge: 01/06/18 Attending physician: Homa Chow Consults: 01/02/18 13:07 Consult Physician Urgent Consulting Provider: Alissa Zelaya Consult Reason/Comments: pancreatitis Do you want consulting provider notified?: Yes Primary care physician: Elenita Murray Hospital Course: Discharge diagnosis 1. Acute pancreatitis: secondary to alcohol use 2. Essential hypertension 3. Diabetes mellitus type 2 4. Leukocytosis likely secondary to the pancreatitis. Resolved 5. Daily alcohol use: Discussed with patient about abstaining from alcohol consumption Hospital course This is a 62-year-old male, patient of [facility]. He has a known past medical history of hypertension, diabetes mellitus type 2, pancreatitis and daily alcohol use. Patient presents to the emergency room with chief complaint of abdominal pain in the epigastric area. Patient reports that it radiates across the upper abdomen. I he is also been having some nausea no actual vomiting. No change in bowel movements. Patient has been diagnosed with pancreatitis back in August and has been having off-and-on abdominal discomfort since then. His symptoms became very severe around 5:00 this morning no pain relief with his [place]. Therefore he presented to the emergency room. He reports yesterday he had been seen by a GI specialist, Dr. Beltran out of [place] and had undergone endoscopic ultrasound. Patient was told that his pancreas was inflamed. ER is trying to obtain this report. Abdominal x-ray completed which was unremarkable. White count 11.1, AST 75 ALT 153 alk phos 187 , lipase 921 and amylase 92. Patient's been diagnosed with an acute pancreatitis. GI service has been consulted. A computed tomography scan of the abdomen and pelvis with contrast will be ordered. Patient is started on normal saline at 100 mL an hour. Keep nothing by mouth. Zofran and Protonix also ordered. Patient denies any fever or chills or sweats. Denies any chest pain or shortness of breath. Denies any bowel movement changes or burning with urination. Patient drinks about 2-3 beers daily. Patient has been educated that he needs to stop drinking alcohol. Patient denies any history of gallstones or high triglycerides. Patient receiving IV morphine as needed for pain control On 01/04/2018 patient is alert and oriented 3 in no apparent distress he is complaining of some epigastric pain today otherwise no complaints there is no nausea or vomiting no chest pain no shortness of breath no cough no diarrhea and no urinary symptoms 01/05/2018 patient was started on a full liquid diet on Friday. Yesterday evening around 11:00 patient had severe abdominal pain in the epigastric area with a bandlike description around the upper abdomen. He reports that the pain was almost more severe than the pain he had when he presented to the emergency room. Patient did not eat his breakfast this morning. The abdominal pain he felt did radiate up into the chest. He does feel that it's more muscle pain in the chest wall. He denies any shortness of breath. Denies any nausea or vomiting. He has been using the IV morphine and with some relief. Patient reports that GI service did evaluate him. A repeat amylase and lipase have been ordered. He has been made nothing by mouth except for medications. AST is increased to 161 ALT increased to 215 and alk phos increased to 244 01/06/2018 patient is stable for discharge. He has been seen by GI service. Amylase and lipase have remained normal. Abdominal pain has resolved. He tolerated advancement of diet to a low fiber diet without any abdominal pain. LFTs are trending back down. AST 50 ALT 153 and alk phos 210. Troponin was negative. Patient had some epigastric chest-like discomfort. That is now resolved and was likely related to his pancreatitis. EKG had shown sinus bradycardia heart rate around 56. Again patient's symptoms have improved. His pancreatitis was likely alcohol induced. Patient has been educated to refrain from any alcohol use. We'll have him follow up with GI service and his PCP. Recommend rechecking CMP in 1 week I performed an examination of the patient and discussed their management with the physician [employer]. I have reviewed the Physician [employer]'s notes and agree with the documented findings and plan of care Patient Condition at Discharge: Stable Plan - Discharge Summary Discharge Rx Participant: Yes New Discharge Prescriptions: Continue Lisinopril [Zestril] 5 mg PO DAILY Ondansetron [Zofran] 4 mg PO TID PRN PRN Reason: Nausea Dicyclomine [Bentyl] 20 mg PO BID Omeprazole 40 mg PO DAILY Naproxen 500 mg PO BID HYDROcodone/APAP 10-325MG [[place] 10-325] 1 tab PO BID metFORMIN HCL [Glucophage] 500 mg PO DAILY Discharge Medication List Lisinopril [Zestril] 5 mg PO DAILY 08/23/17 [History] Dicyclomine [Bentyl] 20 mg PO BID 01/02/18 [History] HYDROcodone/APAP 10-325MG [[place] 10-325] 1 tab PO BID 01/02/18 [History] Naproxen 500 mg PO BID 01/02/18 [History] Omeprazole 40 mg PO DAILY 01/02/18 [History] Ondansetron [Zofran] 4 mg PO TID PRN 01/02/18 [History] metFORMIN HCL [Glucophage] 500 mg PO DAILY 01/02/18 [History] Follow up Appointment(s)/Referral(s): Elenita Murray DO [Primary Care Provider] - 1 Week Alissa Zelaya MD [STAFF PHYSICIAN] - 2 Weeks Activity/Diet/Wound Care/Special Instructions: Diet: low fiber Activity: as tolerated NO ETOH Discharge Disposition: HOME SELF-CARE
[2018-01-06 14:52] VITALS: BP 132/77; PULSE 63; TEMP 97.8
== END 2018-01-06 15:39 | disposition home or self-care (01) | DRG 440 ==
LOC: EC 10:47 → 5MS5E 13:06
PROVIDERS: ADMIT Internal Medicine; ATTEND Internal Medicine
DX: K85.20 Alcohol induced acute pancreatitis without necrosis or infection (principal); E11.65 Type 2 diabetes mellitus with hyperglycemia; J44.9 Chronic obstructive pulmonary disease, unspecified; I10 Essential (primary) hypertension; F40.240 Claustrophobia; R00.1 Bradycardia, unspecified; F10.10 Alcohol abuse, uncomplicated; Z71.41 Alcohol abuse counseling and surveillance of alcoholic; Z79.1 Long term (current) use of non-steroidal anti-inflammatories (NSAID); Z79.891 Long term (current) use of opiate analgesic; Z79.84 Long term (current) use of oral hypoglycemic drugs; Z79.899 Other long term (current) drug therapy; Z87.891 Personal history of nicotine dependence; Z90.49 Acquired absence of other specified parts of digestive tract; Z86.010 Personal history of colon polyps; Z87.81 Personal history of (healed) traumatic fracture; Z85.828 Personal history of other malignant neoplasm of skin; Z87.01 Personal history of pneumonia (recurrent); Z87.39 Personal history of other diseases of the musculoskeletal system and connective tissue; Z80.7 Family history of other malignant neoplasms of lymphoid, hematopoietic and related tissues; Z80.8 Family history of malignant neoplasm of other organs or systems
CPT/HCPCS: 36415; 74022; 74177; 80053; 82150; 83036; 83690; 84484; 85025; 85610; 85730; 93005; 96361; 96374; 96375; 96376; 99285

== ENCOUNTER 2018-01-18 12:15 | Inpatient (IN) | payer OTHER ==
[2018-01-18] MEDS ORDERED: MORPHINE SULFATE 4 MG/ML SYRINGE IV STA (12:47)
[2018-01-18] MEDS ORDERED: ONDANSETRON 4 MG/2 ML VIAL IVP STA ×2 (12:47→15:35)
[2018-01-18] MEDS ORDERED: SODIUM CHLORIDE 0.9% 1,000 ML IV STA (12:47)
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
[2018-01-18 13:02] LABS: Basophils % (A) 0 %; Eosinophils # (A) 0.1 k/uL (0-0.7); Eosinophils % (A) 1 %; HCT 43.2 % (39.0-53.0); HGB 14.2 gm/dL (13.0-17.5); Lymphocytes # (A) 0.8 k/uL (1.0-4.8); Lymphocytes % (A) 5 %; MCH 28.7 pg (25.0-35.0); MCHC 32.8 g/dL (31.0-37.0); MCV 87.3 fL (80.0-100.0); Mean Platelet Volume 7.4; Monocytes # (A) 0.6 k/uL (0-1.0); Monocytes % (A) 4 %; Neutrophils # (A) 13.4 k/uL (1.3-7.7); Neutrophils % (A) 89 %; Platelet Count 320 k/uL (150-450); RBC 4.95 m/uL (4.30-5.90); RDW 12.1 % (11.5-15.5); WBC 15.1 k/uL (3.8-10.6)
[2018-01-18 13:04] LABS: Appearance,Urine Clear (Clear); Bilirubin,Urine Negative (Negative); Blood,Urine Negative (Negative); Color,Urine Yellow; Glucose,Urine (UA) Negative (Negative); Ketones,Urine Trace (Negative); Leukocyte Esterase,Urine Negative (Negative); Nitrite,Urine Negative (Negative); PH, Urine 7.5 (5.0-8.0); Protein,Urine Trace (Negative); Specific Gravity,Urine 1.023 (1.001-1.035)
[2018-01-18 13:13] LABS: ALT 95 U/L (21-72); AST 76 U/L (17-59); Albumin 4.3 g/dL (3.5-5.0); Alkaline Phosphatase 180 U/L (38-126); Amylase 75 U/L (30-110); Anion Gap 11 mmol/L; Blood Urea Nitrogen 11 mg/dL (9-20); Calcium 9.3 mg/dL (8.4-10.2); Carbon Dioxide 25 mmol/L (22-30); Chloride 101 mmol/L (98-107); Glucose 185 mg/dL (74-99); Lipase 409 U/L (23-300); Potassium 4.7 mmol/L (3.5-5.1); Sodium 137 mmol/L (137-145); Total Bilirubin 0.8 mg/dL (0.2-1.3); Total Protein 7.1 g/dL (6.3-8.2)
--- NOTE | 2018-01-18 14:04 | XR ---
EXAMINATION TYPE: XR KUB , 2 VIEWS DATE OF EXAM ORDERED: 01/18/2018 HISTORY: Pain. COMPARISON: None. FINDINGS: Lung bases are clear. Within the abdomen, the abdominal gas pattern is normal. There is no evidence of obstruction or free air. There are phleboliths within the pelvis. IMPRESSION: NO ACUTE INTRA-ABDOMINAL ABNORMALITY.
[2018-01-18] MEDS ORDERED: MORPHINE SULFATE 4 MG/ML SYRINGE IVP STA (15:35)
--- NOTE | 2018-01-18 15:43 | CT ---
EXAMINATION TYPE: CT abdomen pelvis w con DATE OF EXAM: 01/18/2018 COMPARISON: HISTORY: Mid abdominal pain with nausea, history of pancreatitis. CT DLP: 1523 mGycm Automated exposure control for dose reduction was used. TECHNIQUE: Helical acquisition of images was performed from the lung bases through the pelvis. CONTRAST: Performed without Oral Contrast and with IV Contrast, patient injected with 100 mL of Isovue 300. FINDINGS: LUNG BASES: No significant abnormality is appreciated. LIVER/GB: Continued evidence of enlargement and overall low attenuation of the hepatic parenchyma. Th e gallbladder is within normal limits. PANCREAS: Pancreas is again edematous with surrounding peripancreatic mesenteric inflammation. The ma in pancreatic duct is again dilated which measures up to 1.1 cm. There are no areas of pancreatic non enhancement or surrounding peripancreatic fluid collections. The splenic artery is within normal watson its. SPLEEN: No significant abnormality is seen. ADRENALS: No significant abnormality is seen. KIDNEYS: No significant abnormality is seen. FREE AIR: No free air is visualized. RETROPERITONEAL ADENOPATHY: None visualized REPRODUCTIVE ORGANS: No significant abnormality is seen URINARY BLADDER: No significant abnormality is seen. PELVIC ADENOPATHY: None visualized. OSSEOUS STRUCTURES: No significant abnormality is seen. BOWEL: Minimal thickening of the proximal duodenum secondary to reactive pancreatic inflammation. Th ere are some prominent but not pathologically enlarged loops of small bowel which measure up to 2.8 c m. No additional significant bowel abnormality is seen. Right inguinal hernia is unchanged. IMPRESSION: 1. FINDINGS ARE CONSISTENT WITH ACUTE INTERSTITIAL EDEMATOUS PANCREATITIS, THE DEGREE OF PERIPANCREAT IC INFLAMMATION HAS SLIGHTLY WORSENED IN THE INTERVAL. 2. PROBABLE REACTIVE PROXIMAL DUODENITIS SECONDARY TO #1. 3. CONTINUED EVIDENCE OF HEPATIC STEATOSIS.
[2018-01-18 15:51] LABS: Creatine Kinase 51 U/L (55-170)
[2018-01-18] MEDS ORDERED: ONDANSETRON 4 MG/2 ML VIAL IVP PRN (16:02)
[2018-01-18] MEDS ORDERED: NALOXONE 0.4 MG/ML 1 ML VIAL IV PRN (16:02)
[2018-01-18] MEDS ORDERED: ACETAMINOPHEN TAB 325 MG TAB PO PRN (16:02)
[2018-01-18 16:03] LABS: Troponin I <0.012 ng/mL (0.000-0.034)
[2018-01-18] MEDS ORDERED: MORPHINE SULFATE 4 MG/ML SYRINGE IVP PRN (16:04)
[2018-01-18] MEDS: SODIUM CHLORIDE 0.9% 1,000 ML IV SCH (16:52)
[2018-01-18 17:56] VITALS: BMI 33.0
[2018-01-18 20:30] LABS: Glucose,Whole Blood 152 mg/dL (75-99)
[2018-01-18] MEDS: MORPHINE SULFATE 4 MG/ML SYRINGE IVP PRN (20:48)
[2018-01-18] MEDS: DICYCLOMINE 20 MG TAB PO SCH (20:49)
[2018-01-18 22:20] VITALS: RESP 16
[2018-01-19] MEDS: MORPHINE SULFATE 4 MG/ML SYRINGE IVP PRN ×4 (00:23→12:59)
[2018-01-19] MEDS: SODIUM CHLORIDE 0.9% 1,000 ML IV SCH ×3 (04:17→16:28)
[2018-01-19 07:15] LABS: Glucose,Whole Blood 140 mg/dL (75-99)
[2018-01-19] MEDS: DICYCLOMINE 20 MG TAB PO SCH ×2 (08:07→21:30)
[2018-01-19] MEDS: LISINOPRIL 5 MG TAB PO SCH (08:07)
[2018-01-19] MEDS: PANTOPRAZOLE 40 MG TABLET PO SCH (08:07)
[2018-01-19 08:43] LABS: Basophils % (A) 0 %; Eosinophils # (A) 0.1 k/uL (0-0.7); Eosinophils % (A) 1 %; HCT 40.6 % (39.0-53.0); HGB 13.1 gm/dL (13.0-17.5); Lymphocytes # (A) 1.1 k/uL (1.0-4.8); Lymphocytes % (A) 9 %; MCH 29.1 pg (25.0-35.0); MCHC 32.3 g/dL (31.0-37.0); MCV 90.1 fL (80.0-100.0); Mean Platelet Volume 7.1; Monocytes # (A) 0.9 k/uL (0-1.0); Monocytes % (A) 7 %; Neutrophils # (A) 9.8 k/uL (1.3-7.7); Neutrophils % (A) 81 %; Platelet Count 283 k/uL (150-450); RDW 12.4 % (11.5-15.5); WBC 12.1 k/uL (3.8-10.6)
[2018-01-19 09:02] LABS: ALT 124 U/L (21-72); AST 72 U/L (17-59); Albumin 3.7 g/dL (3.5-5.0); Alkaline Phosphatase 186 U/L (38-126); Amylase 50 U/L (30-110); Anion Gap 10 mmol/L; Blood Urea Nitrogen 6 mg/dL (9-20); Calcium 8.6 mg/dL (8.4-10.2); Carbon Dioxide 25 mmol/L (22-30); Chloride 102 mmol/L (98-107); Glucose 140 mg/dL (74-99); Lipase 237 U/L (23-300); Potassium 4.3 mmol/L (3.5-5.1); Sodium 137 mmol/L (137-145); Total Bilirubin 4.6 mg/dL (0.2-1.3); Total Protein 6.3 g/dL (6.3-8.2)
[2018-01-19 11:25] LABS: Glucose,Whole Blood 169 mg/dL (75-99)
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
[2018-01-19] MEDS ORDERED: LORazepam 2 MG/ML INJ IV PRN ×3 (16:04)
[2018-01-19] MEDS ORDERED: THIAMINE 100 MG/ML 2 ML VIAL IM STA (16:04)
[2018-01-19 16:52] LABS: Glucose,Whole Blood 174 mg/dL (75-99)
[2018-01-19] MEDS: INSULIN ASPART 100 UNIT/ML 1 ML 10 ML VIAL SQ SCH ×2 (17:54→21:30)
[2018-01-19] MEDS: THIAMINE 100 MG TAB PO SCH (17:54)
[2018-01-19 19:02] LABS: Appearance,Urine Clear (Clear); Bilirubin,Urine Negative (Negative); Blood,Urine Negative (Negative); Color,Urine Light Yellow; Glucose,Urine (UA) Trace (Negative); Ketones,Urine Negative (Negative); Leukocyte Esterase,Urine Negative (Negative); Nitrite,Urine Negative (Negative); PH, Urine 6.5 (5.0-8.0); Protein,Urine Negative (Negative); Specific Gravity,Urine 1.003 (1.001-1.035); Urobilinogen,Urine <2.0 mg/dL (<2.0)
[2018-01-19 20:31] LABS: Glucose,Whole Blood 193 mg/dL (75-99)
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
--- NOTE | 2018-01-19 22:26 | XR ---
EXAMINATION: XR chest 2V DATE AND TIME: 01/19/2018 6:53 PM ORDERING PROVIDER: Christelle Dc CLINICAL INDICATION: elevated wbc, TECHNIQUE: PA and lateral COMPARISON: None. DESCRIPTION: The lungs are clear. The pleural spaces are negative. The cardiac silhouette is not enla rged. The mediastinal and pleural silhouettes are unremarkable. The skeletal structures are intact wi thout focal findings. The soft tissues are unremarkable. IMPRESSION: NO ACUTE PROCESS.
[2018-01-20] MEDS: SODIUM CHLORIDE 0.9% 1,000 ML IV SCH ×2 (05:01→08:09)
[2018-01-20 05:31] VITALS: BP 125/67; PULSE 77; TEMP 98.3
[2018-01-20 07:05] LABS: Glucose,Whole Blood 159 mg/dL (75-99)
[2018-01-20 08:01] LABS: Basophils % (A) 0 %; Eosinophils # (A) 0.2 k/uL (0-0.7); Eosinophils % (A) 2 %; HGB 11.6 gm/dL (13.0-17.5); Lymphocytes # (A) 1.1 k/uL (1.0-4.8); Lymphocytes % (A) 15 %; MCH 28.8 pg (25.0-35.0); MCHC 32.2 g/dL (31.0-37.0); MCV 89.5 fL (80.0-100.0); Mean Platelet Volume 7.6; Monocytes # (A) 0.6 k/uL (0-1.0); Monocytes % (A) 8 %; Neutrophils # (A) 5.4 k/uL (1.3-7.7); Neutrophils % (A) 73 %; Platelet Count 229 k/uL (150-450); RBC 4.03 m/uL (4.30-5.90); RDW 12.3 % (11.5-15.5); WBC 7.4 k/uL (3.8-10.6)
[2018-01-20] MEDS: PANTOPRAZOLE 40 MG TABLET PO SCH (08:08)
[2018-01-20] MEDS: LISINOPRIL 5 MG TAB PO SCH (08:08)
[2018-01-20] MEDS: INSULIN ASPART 100 UNIT/ML 1 ML 10 ML VIAL SQ SCH ×2 (08:08→12:24)
[2018-01-20] MEDS: DICYCLOMINE 20 MG TAB PO SCH (08:08)
[2018-01-20 08:19] LABS: ALT 79 U/L (21-72); AST 25 U/L (17-59); Albumin 3.3 g/dL (3.5-5.0); Alkaline Phosphatase 148 U/L (38-126); Amylase <30 U/L (30-110); Anion Gap 6 mmol/L; Blood Urea Nitrogen 6 mg/dL (9-20); Calcium 8.6 mg/dL (8.4-10.2); Carbon Dioxide 26 mmol/L (22-30); Chloride 108 mmol/L (98-107); Glucose 161 mg/dL (74-99); Lipase 14 U/L (23-300); Potassium 3.9 mmol/L (3.5-5.1); Sodium 140 mmol/L (137-145); Total Protein 5.7 g/dL (6.3-8.2)
--- NOTE | 2018-01-20 08:37 | P.PN ---
Subjective Progress Note Date: 01/20/18 Principal diagnosis: Pancreatitis Reports constipation no BM 5 days. Abdominal pain improved. Pancreatic liver enzymes improved. Objective - Vital Signs Vital signs: Vital Signs Temp 98.3 F 01/20/18 05:30 Pulse 77 01/20/18 05:30 Resp 16 01/20/18 05:30 BP 125/67 01/20/18 05:30 Pulse Ox 97 01/20/18 05:30 Intake & Output 01/19/18 01/20/18 01/20/18 18:59 06:59 18:59 Intake Total 875 1000 Balance 875 1000 Weight 92.986 kg Intake: Intake, IV Titration 875 1000 Amount Sodium Chloride 0.9% 1, 875 1000 000 ml @ 125 mls/hr IV . Q8H [facility] Rx#:[id number] Other: Voiding Method Toilet Toilet Toilet # Voids 1 - Exam General appearance: The patient is alert, oriented, in no acute distress. HET: Head is normocephalic and atraumatic. Pupils are equal and reactive. Oropharynx is clear without lesions. Neck: Supple without lymphadenopathy. Trachea midline. Heart: S1 S2. Regular rate and rhythm. Lungs: No crackles or wheezes are heard. Abdomen: Soft, mild tenderness midepigastrium, nondistended with bowel sounds. No peritoneal signs. No palpable organomegaly or masses. Extremities: Normal skin color and turgor. No cyanosis, rash, ulceration, clubbing, or edema. Radial and pedal pulses are 2/4 bilaterally. Neurological: No focal deficits. Strength and sensation are grossly intact. - Labs CBC & Chem 7: 01/20/18 07:17 01/20/18 07:17 Labs: Abnormal Lab Results - Last 24 Hours (Table) 01/19/18 01/19/18 01/19/18 Range/Units 08:01 08:01 08:01 WBC 12.1 H (3.8-10.6) k/uL RBC (4.30-5.90) m/uL Hgb (13.0-17.5) gm/dL Hct (39.0-53.0) % Neutrophils # 9.8 H (1.3-7.7) k/uL Chloride (98-107) mmol/L BUN 6 L (9-20) mg/dL Creatinine 0.65 L (0.66-1.25) mg/dL Glucose 140 H (74-99) mg/dL POC Glucose (mg/dL) (75-99) mg/dL Hemoglobin A1c 8.0 H (4.0-6.0) % Total Bilirubin 4.6 H (0.2-1.3) mg/dL AST 72 H (17-59) U/L ALT 124 H (21-72) U/L Alkaline Phosphatase 186 H (38-126) U/L Total Protein (6.3-8.2) g/dL Albumin (3.5-5.0) g/dL Amylase (30-110) U/L Lipase (23-300) U/L Urine Glucose (UA) (Negative) 01/19/18 01/19/18 01/19/18 Range/Units 11:24 16:51 18:40 WBC (3.8-10.6) k/uL RBC (4.30-5.90) m/uL Hgb (13.0-17.5) gm/dL Hct (39.0-53.0) % Neutrophils # (1.3-7.7) k/uL Chloride (98-107) mmol/L BUN (9-20) mg/dL Creatinine (0.66-1.25) mg/dL Glucose (74-99) mg/dL POC Glucose (mg/dL) 169 H 174 H (75-99) mg/dL Hemoglobin A1c (4.0-6.0) % Total Bilirubin (0.2-1.3) mg/dL AST (17-59) U/L ALT (21-72) U/L Alkaline Phosphatase (38-126) U/L Total Protein (6.3-8.2) g/dL Albumin (3.5-5.0) g/dL Amylase (30-110) U/L Lipase (23-300) U/L Urine Glucose (UA) Trace H (Negative) 01/19/18 01/20/18 01/20/18 Range/Units 20:27 07:04 07:17 WBC (3.8-10.6) k/uL RBC (4.30-5.90) m/uL Hgb (13.0-17.5) gm/dL Hct (39.0-53.0) % Neutrophils # (1.3-7.7) k/uL Chloride 108 H (98-107) mmol/L BUN 6 L (9-20) mg/dL Creatinine (0.66-1.25) mg/dL Glucose 161 H (74-99) mg/dL POC Glucose (mg/dL) 193 H 159 H (75-99) mg/dL Hemoglobin A1c (4.0-6.0) % Total Bilirubin (0.2-1.3) mg/dL AST (17-59) U/L ALT 79 H (21-72) U/L Alkaline Phosphatase 148 H (38-126) U/L Total Protein 5.7 L (6.3-8.2) g/dL Albumin 3.3 L (3.5-5.0) g/dL Amylase <30 L (30-110) U/L Lipase 14 L (23-300) U/L Urine Glucose (UA) (Negative) 01/20/18 Range/Units 07:17 WBC (3.8-10.6) k/uL RBC 4.03 L (4.30-5.90) m/uL Hgb 11.6 L (13.0-17.5) gm/dL Hct 36.0 L (39.0-53.0) % Neutrophils # (1.3-7.7) k/uL Chloride (98-107) mmol/L BUN (9-20) mg/dL Creatinine (0.66-1.25) mg/dL Glucose (74-99) mg/dL POC Glucose (mg/dL) (75-99) mg/dL Hemoglobin A1c (4.0-6.0) % Total Bilirubin (0.2-1.3) mg/dL AST (17-59) U/L ALT (21-72) U/L Alkaline Phosphatase (38-126) U/L Total Protein (6.3-8.2) g/dL Albumin (3.5-5.0) g/dL Amylase (30-110) U/L Lipase (23-300) U/L Urine Glucose (UA) (Negative) Microbiology - Last 24 Hours (Table) 01/19/18 18:40 Urine Culture - Preliminary Urine,Voided Assessment and Plan (1) Pancreatitis Narrative/Plan: Possible chronic pancreatitis also alcohol related etiology unclear. Status post recent outpatient EUS; verbally reported as normal. Current Visit: Yes Status: Acute Code(s): K85.90 - ACUTE PANCREATITIS WITHOUT NECROSIS OR INFECTION, UNSP SNOMED Code(s): 05551949 (2) Constipation Current Visit: Yes Status: Acute Code(s): K59.00 - CONSTIPATION, UNSPECIFIED SNOMED Code(s): 97041832 (3) Alcohol use Current Visit: No Status: Acute Code(s): Z78.9 - OTHER SPECIFIED HEALTH STATUS SNOMED Code(s): 928480131 Plan: Discharge per medicine. Advance to low-fat diet. Will provide stool softeners and milk of magnesia for constipation. Follow-up in office in 2-3 weeks for reevaluation. EUS report requested. Assessment and plan of care discussed with Dr. Zelaya.
[2018-01-20] MEDS ORDERED: MAGNESIUM HYDROXIDE 2,400 MG/10 ML CUP PO PRN ×2 (08:41)
[2018-01-20] MEDS ORDERED: SENNOSIDES-DOCUSATE SODIUM 1 EACH TAB PO SCH (09:00)
[2018-01-20] MEDS ORDERED: ENOXAPARIN 40 MG/0.4 ML SYRINGE SQ SCH (09:00)
[2018-01-20 11:05] LABS: Glucose,Whole Blood 254 mg/dL (75-99)
[2018-01-20] MEDS: THIAMINE 100 MG TAB PO SCH (12:24)
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
== END 2018-01-20 16:08 | disposition home or self-care (01) | DRG 440 ==
LOC: EC 12:15 → 5MS5E 16:36
PROVIDERS: ADMIT Internal Medicine; ATTEND Internal Medicine
DX: K85.20 Alcohol induced acute pancreatitis without necrosis or infection (principal); K86.0 Alcohol-induced chronic pancreatitis; K76.0 Fatty (change of) liver, not elsewhere classified; E11.9 Type 2 diabetes mellitus without complications; F40.240 Claustrophobia; I10 Essential (primary) hypertension; K29.80 Duodenitis without bleeding; J44.9 Chronic obstructive pulmonary disease, unspecified; K59.00 Constipation, unspecified; Z79.84 Long term (current) use of oral hypoglycemic drugs; Z79.1 Long term (current) use of non-steroidal anti-inflammatories (NSAID); Z79.899 Other long term (current) drug therapy; Z72.89 Other problems related to lifestyle; Z85.828 Personal history of other malignant neoplasm of skin; Z87.01 Personal history of pneumonia (recurrent); Z87.39 Personal history of other diseases of the musculoskeletal system and connective tissue; Z87.81 Personal history of (healed) traumatic fracture; Z90.49 Acquired absence of other specified parts of digestive tract; Z86.010 Personal history of colon polyps; Z87.891 Personal history of nicotine dependence; Z80.7 Family history of other malignant neoplasms of lymphoid, hematopoietic and related tissues; Z80.8 Family history of malignant neoplasm of other organs or systems
CPT/HCPCS: 36415; 71046; 74018; 74177; 80053; 81003; 82150; 82550; 82553; 83036; 83690; 84484; 85025; 87086; 93005; 96361; 96374; 96375; 96376; 99285

== ENCOUNTER → 2018-03-13 | Outpatient (CLI) | payer OTHER ==
[2018-03-12 11:15] VITALS: BMI 32.3
[2018-03-13 08:04] VITALS: BP 121/79; PULSE 62; RESP 18
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
== END | disposition home or self-care (01) ==
LOC: PNWHC3 07:47
PROVIDERS: ATTEND Specialist
DX: G89.29 Other chronic pain (principal); R10.13 Epigastric pain; K86.1 Other chronic pancreatitis; E11.9 Type 2 diabetes mellitus without complications; I10 Essential (primary) hypertension; Z86.010 Personal history of colon polyps; Z79.891 Long term (current) use of opiate analgesic; Z85.828 Personal history of other malignant neoplasm of skin; Z87.828 Personal history of other (healed) physical injury and trauma; Z98.890 Other specified postprocedural states; Z87.891 Personal history of nicotine dependence; Z79.84 Long term (current) use of oral hypoglycemic drugs; Z79.899 Other long term (current) drug therapy
CPT/HCPCS: 99211

== ENCOUNTER 2018-05-18 08:27 | Emergency (ER) | payer OTHER ==
[2018-05-18 08:36] VITALS: RESP 18
[2018-05-18] MEDS ORDERED: ONDANSETRON 4 MG/2 ML VIAL IVP STA (08:51)
[2018-05-18] MEDS ORDERED: SODIUM CHLORIDE 0.9% 1,000 ML IV STA (08:51)
[2018-05-18] MEDS ORDERED: HYDROmorphone 1 MG/ML 1 ML SYRINGE IVP STA (08:51)
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
[2018-05-18 09:33] LABS: Basophils # (A) 0.1 k/uL (0-0.2); Basophils % (A) 1 %; Eosinophils # (A) 0.2 k/uL (0-0.7); Eosinophils % (A) 3 %; HCT 43.9 % (39.0-53.0); HGB 15.5 gm/dL (13.0-17.5); Lymphocytes # (A) 1.1 k/uL (1.0-4.8); Lymphocytes % (A) 13 %; MCH 30.1 pg (25.0-35.0); MCHC 35.3 g/dL (31.0-37.0); MCV 85.2 fL (80.0-100.0); Mean Platelet Volume 7.7; Monocytes # (A) 0.6 k/uL (0-1.0); Monocytes % (A) 6 %; Neutrophils # (A) 6.6 k/uL (1.3-7.7); Neutrophils % (A) 76 %; Platelet Count 238 k/uL (150-450); RBC 5.16 m/uL (4.30-5.90); RDW 13.5 % (11.5-15.5); WBC 8.6 k/uL (3.8-10.6)
[2018-05-18 09:37] LABS: Appearance,Urine Clear (Clear); Bilirubin,Urine Negative (Negative); Blood,Urine Negative (Negative); Color,Urine Yellow; Glucose,Urine (UA) Negative (Negative); Ketones,Urine Negative (Negative); Leukocyte Esterase,Urine Negative (Negative); Nitrite,Urine Negative (Negative); PH, Urine 5.5 (5.0-8.0); Protein,Urine Negative (Negative); Specific Gravity,Urine 1.016 (1.001-1.035)
[2018-05-18 09:46] LABS: ALT 131 U/L (21-72); AST 86 U/L (17-59); Albumin 4.6 g/dL (3.5-5.0); Alkaline Phosphatase 169 U/L (38-126); Amylase 71 U/L (30-110); Anion Gap 12 mmol/L; Blood Urea Nitrogen 15 mg/dL (9-20); Calcium 9.4 mg/dL (8.4-10.2); Carbon Dioxide 22 mmol/L (22-30); Chloride 106 mmol/L (98-107); Glucose 116 mg/dL (74-99); Lipase 278 U/L (23-300); Sodium 140 mmol/L (137-145); Total Bilirubin 1.6 mg/dL (0.2-1.3)
[2018-05-18 10:02] LABS: Potassium 4.8 mmol/L (3.5-5.1)
[2018-05-18] MEDS ORDERED: KETOROLAC 30 MG/ML 1 ML VIAL IVP STA (10:29)
[2018-05-18 10:52] VITALS: BP 130/76; PULSE 56
[2018-05-18 10:58] VITALS: TEMP 98.8
== END 2018-05-18 10:56 | disposition home or self-care (01) ==
LOC: EC 08:27
DX: K86.1 Other chronic pancreatitis (principal); R74.8 Abnormal levels of other serum enzymes; E11.9 Type 2 diabetes mellitus without complications; I10 Essential (primary) hypertension; Z86.010 Personal history of colon polyps; Z85.828 Personal history of other malignant neoplasm of skin; Z90.49 Acquired absence of other specified parts of digestive tract; Z98.890 Other specified postprocedural states; Z87.891 Personal history of nicotine dependence; Z79.84 Long term (current) use of oral hypoglycemic drugs; Z79.899 Other long term (current) drug therapy
CPT/HCPCS: 36415; 80053; 82150; 83690; 85025; 81003; 99284; 96374; 96375 ×2; 96361; J2405; J1885; J1170

== ENCOUNTER → 2018-05-19 | Day surgery (SDC) | payer OTHER ==
[~2018-05-19] MED LIST: SODIUM CHLORIDE 0.9% 500 ML 500 ML IV ONE; SODIUM CHLORIDE 0.9% 500 ML 500 ML IV SCH
[2018-05-19 06:39] VITALS: TEMP 98
[2018-05-19 07:03] LABS: Glucose,Whole Blood 121 mg/dL (75-99)
[2018-05-19 08:13] VITALS: RESP 18
[2018-05-19 08:30] VITALS: BP 113/63; PULSE 58
--- NOTE | 2018-05-19 08:34 | FL ---
EXAMINATION TYPE: FL guided pain mgmt statistic DATE OF EXAM: 05/19/2018 HISTORY: Pain 31 SEC FL, 2 FILMS
--- NOTE | 2018-05-19 08:55 | P.PCN ---
Date of Procedure: 05/19/18 Procedure(s) Performed: stic Celiac Plexus Block Date of the procedure: PREOPERATIVE DIAGNOSIS: Pancreatic cancer with intractable abdominal pain. POSTOPERATIVE DIAGNOSIS: Chronic Pancreatitis with intractable abdominal pain. PROCEDURE: celiac plexus block under fluoroscopy guidance . ANESTHESIA: moderate sedation with Versed 2 mg ,and fentanyl 100 g EBL: Minimal IV FLUIDS: Approximately 500 mL of crystalloid. PROCEDURE INDICATION: The patient has a history of abdominal pain secondary to chronic pancreatitis that is non responsive to more conservative treatments. PROCEDURE DESCRIPTION: The patient was seen and identified in the preoperative area. Risks, benefits, complications, and alternatives were discussed with the patient. The patient agreed to proceed with the procedure and signed the consent. IV was started, and vital signs were stable. Patient was taken to the OR and time out was completed.The patient was placed in the prone position on procedure table and a pillow was placed under the abdomen to reduce lumbar lordosis. The lumbosacral area was prepped and draped in the usual sterile fashion. Critical pause was taken. Vital signs were closely monitored during the procedure. Conscious sedation was used during the procedure to decrease patients anxiety. The procedure was performed in a similar fashion on the right side and on the left side. Using anterior-posterior fluoroscopy, the L1 spinous process and vertebral body were identified. Then, the fluoroscope was turned obliquely until the transverse process of L1 vertebra was totally behind the L1 vertebral body. Skin was then marked and infiltrated with Lidocaine 1% subcutaneously with a 25-guage needle at the level of the L1 vertebral body. Subsequently, a 22 -guage 5-inch inch spinal needles was inserted and advanced toward the the anterior side of the L1 vertebral body under oblique fluoroscopic guidance and while keeping a ``tunnel view of the needle. Subsequently, 3 ml of the water soluble dye Omnipaque was injected under life fluoroscopy to confirm needle position. The spread of the dye along the anterior side of the L1 vertebral body was verified with AP and latter fluoroscopy. After satisfactory positioning of the needle and negative aspiration for CSF, blood, or any other contents, a total of 15 mL of 0.5% preservative-free Ropivacaine mixed with 29 mg Depomedrol was injected with 5 ml increments and intermittent aspiration. Washout of the dye was seen and the needle was then withdrawn intact. Procedure was done bilaterally using the same technique on the right and left sides. A total of 30 ml of 0.5% preservative-free Ropivacaine was used during the procedure.At the end of the procedure, the operated areas were cleaned. Band- Aids were applied. COMPLICATIONS: None. DISPOSITION / PLANS: The patient was placed in a supine position and transferred to the recovery area in a stable condition for observation and was discharged from the recovery room after meeting discharge criteria.Home discharge instructions given to the patient by the staff.The patient was reexamined prior to discharge. We will schedule a neurolytic block in one week if patient has more than 50% pain relief from this block.
== END ==
LOC: ORPAIN 06:12
PROVIDERS: ATTEND Specialist
DX: K86.1 Other chronic pancreatitis (principal); I10 Essential (primary) hypertension; R73.03 Prediabetes
CPT/HCPCS: 64530; J2250; J3301; J3010; Q9966; 99152

== ENCOUNTER → 2018-06-02 | Outpatient (CLI) | payer OTHER ==
[2018-06-02 11:44] VITALS: BP 105/45; PULSE 61; RESP 16
--- NOTE | 2018-06-02 12:43 | P.PN ---
Subjective Progress Note Date: 06/02/18 Principal diagnosis: Chronic pancreatitis This is a 62-year-old gentleman with history of chronic pancreatitis who underwent celiac plexus block in our clinic about 2 weeks ago. The patient reports very good relief of his pain since the procedure and as a matter of fact he stopped using [place] after receiving the celiac plexus block. Today, pt denies new-onset weakness, bowel/bladder incontinence, or any other signs or symptoms of cauda equina syndrome. There are no signs of acute intoxication, and no indications of medication diversion or overuse. In addition to above, 13-point review of systems is also negative for chest pain , shortness of breath, changes in vision, changes in hearing, new onset weakness , abdominal pain, diarrhea, extreme fatigue, malaise, fever, skin changes, homicidal or suicidal ideation, or bowel or bladder incontinence. Vital Signs: Reviewed in EMR Gen: AAOx3, NAD HEENT: PERRLA,hearing grossly normal Pulm: resp unlabored,CTA Heart:S1,S2, No Mur Neck: supple, trachea midline Neuro: CN II-XII grossly intact, Imaging: Reviewed in EMR/chart Assessment: Chronic pancreatitis Plan: 1. Explanation: Opioid and psychological risk scores were reviewed. Diagnoses , prognoses, and multiple treatment options including but not limited to physical therapy, interventional therapies, adjuvant medical therapies, narcotic medication therapies, and surgery were discussed with the patient and all questions were answered to the patient's satisfaction. 2. Opioid agreement: We do not prescribe opioids for this patient 3. Counseling: The patient was counseled extensively on SMOKING CESSATION, BODY MASS INDEX, EXERCISE. Specifically, the patient was instructed regarding the importance of smoking cessation, obesity, and exercise in the context of both chronic pain and overall health. 4. Procedures: None for now 5. Consultations: None 6. Investigations: None 7. Medications: None 8. Disposition: The patient will schedule another celiac plexus block when his pain comes back. We will see him on an as-needed basis 9. Maps were reviewed and were appropriate. PQRS measures: 1-Patient's medications are documented in the chart. 2-Tobacco use is negative, counseling given 3-Patient has had a pneumococcal vaccine. 4-Advanced care planning discussed, patient unable to give 5-Opioid contract not signed with the patient. 6-Pain positive, follow-up visit or procedure scheduled 7-Patient's blood pressure measured and documented within normal limits. 8-Patient's weight was measured, and body mass index ABOVE the normal limits, and counseling was done. Patient instructed to follow up with PCP. 9-Patient WAS NOT identified as an unhealthy alcohol user. Objective - Vital Signs Vital signs: Vital Signs Temp Pulse 61 06/02/18 11:37 Resp 16 06/02/18 11:37 BP 105/45 06/02/18 11:37 Pulse Ox 95 06/02/18 11:37 Intake & Output 06/01/18 06/02/18 06/02/18 18:59 06:59 18:59 Weight 86.183 kg
== END | disposition home or self-care (01) ==
LOC: PNWHC3 11:28
PROVIDERS: ATTEND Anesthesiology
DX: K86.1 Other chronic pancreatitis (principal)
CPT/HCPCS: 99211

== ENCOUNTER 2018-09-10 08:45 | Emergency (ER) | payer OTHER ==
[2018-09-10] MEDS ORDERED: ONDANSETRON 4 MG/2 ML VIAL IVP STA (09:22)
[2018-09-10] MEDS ORDERED: HYDROmorphone 0.5 MG/0.5 ML SYRINGE IVP STA ×2 (09:22→10:14)
[2018-09-10] MEDS ORDERED: SODIUM CHLORIDE 0.9% 1,000 ML IV STA (09:22)
[2018-09-10 09:33] LABS: Basophils # (A) 0.1 k/uL (0-0.2); Basophils % (A) 0 %; Eosinophils # (A) 0.1 k/uL (0-0.7); Eosinophils % (A) 1 %; HCT 46.3 % (39.0-53.0); HGB 14.9 gm/dL (13.0-17.5); Lymphocytes % (A) 7 %; MCH 28.6 pg (25.0-35.0); MCHC 32.1 g/dL (31.0-37.0); Mean Platelet Volume 8.1; Monocytes # (A) 0.7 k/uL (0-1.0); Monocytes % (A) 6 %; Neutrophils # (A) 11.2 k/uL (1.3-7.7); Neutrophils % (A) 85 %; Platelet Count 243 k/uL (150-450); RDW 12.8 % (11.5-15.5); WBC 13.1 k/uL (3.8-10.6)
[2018-09-10 09:42] LABS: ALT 36 U/L (21-72); AST 24 U/L (17-59); Albumin 4.9 g/dL (3.5-5.0); Alkaline Phosphatase 90 U/L (38-126); Amylase 126 U/L (30-110); Anion Gap 11 mmol/L; Blood Urea Nitrogen 14 mg/dL (9-20); Calcium 9.5 mg/dL (8.4-10.2); Carbon Dioxide 25 mmol/L (22-30); Chloride 101 mmol/L (98-107); Glucose 147 mg/dL (74-99); Lipase 712 U/L (23-300); Potassium 4.5 mmol/L (3.5-5.1); Sodium 137 mmol/L (137-145); Total Bilirubin 0.8 mg/dL (0.2-1.3); Total Protein 8.1 g/dL (6.3-8.2)
[2018-09-10] MEDS ORDERED: KETOROLAC 30 MG/ML 1 ML VIAL IVP STA (10:14)
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
[2018-09-10 11:01] LABS: Appearance,Urine Clear (Clear); Bilirubin,Urine Negative (Negative); Blood,Urine Negative (Negative); Color,Urine Light Yellow; Glucose,Urine (UA) Negative (Negative); Ketones,Urine Trace (Negative); Leukocyte Esterase,Urine Negative (Negative); Nitrite,Urine Negative (Negative); PH, Urine 7.5 (5.0-8.0); Protein,Urine Negative (Negative); Specific Gravity,Urine 1.004 (1.001-1.035); Urobilinogen,Urine <2.0 mg/dL (<2.0)
[2018-09-10] MEDS ORDERED: SODIUM CHLORIDE 0.9% 500 ML 500 ML IV STA (11:35)
--- NOTE | 2018-09-10 11:52 | XR ---
EXAMINATION TYPE: XR abdomen 1V DATE OF EXAM: 09/10/2018 Comparison: 05/01/2018 Clinical History: 62-year-old male Pain Findings: Lung bases are clear. No evidence for free intraperitoneal air. Scattered mild to moderate stool. No dilated small bowel or differential air-fluid levels seen. Some small scattered mid abdominal small b owel air-fluid levels are demonstrated. Some coils in the left side of the pelvis suggesting prior mesh repair. Impression: 1. Overall nonobstructive bowel gas pattern at this time. [id number] stool. 2. Some scattered small central small bowel air fluid levels more suggestive of ileus or enteritis.
[2018-09-10 12:28] VITALS: BP 142/85; PULSE 76; RESP 18; TEMP 97.9
== END 2018-09-10 12:27 | disposition home or self-care (01) ==
LOC: EC 08:45
DX: K86.1 Other chronic pancreatitis (principal); R74.8 Abnormal levels of other serum enzymes; E11.9 Type 2 diabetes mellitus without complications; I10 Essential (primary) hypertension; Z87.891 Personal history of nicotine dependence; Z79.84 Long term (current) use of oral hypoglycemic drugs; Z79.899 Other long term (current) drug therapy; Z85.828 Personal history of other malignant neoplasm of skin; Z86.010 Personal history of colon polyps; Z90.49 Acquired absence of other specified parts of digestive tract; Z98.890 Other specified postprocedural states
CPT/HCPCS: 99284; 96374; 96375 ×2; 96376; 36415; 80053; 82150; 83690; 85025; 81003; 74018; J2405; J1885; J1170

== ENCOUNTER 2018-09-26 12:55 | Emergency (ER) | payer OTHER ==
[2018-09-26 13:11] VITALS: RESP 18
[2018-09-26] MEDS ORDERED: SODIUM CHLORIDE 0.9% 1,000 ML IV STA (13:21)
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
[2018-09-26 13:55] LABS: Basophils # (A) 0.1 k/uL (0-0.2); Basophils % (A) 1 %; Eosinophils # (A) 0.3 k/uL (0-0.7); Eosinophils % (A) 3 %; HGB 14.7 gm/dL (13.0-17.5); Lymphocytes # (A) 1.8 k/uL (1.0-4.8); Lymphocytes % (A) 20 %; MCH 28.3 pg (25.0-35.0); MCHC 34.2 g/dL (31.0-37.0); Mean Platelet Volume 9.7; Monocytes # (A) 0.6 k/uL (0-1.0); Monocytes % (A) 7 %; Neutrophils # (A) 6.2 k/uL (1.3-7.7); Neutrophils % (A) 68 %; Platelet Count 241 k/uL (150-450); RBC 5.21 m/uL (4.30-5.90); WBC 9.2 k/uL (3.8-10.6)
[2018-09-26 14:22] LABS: MCV 82.6 fL (80.0-100.0)
[2018-09-26 14:23] LABS: ALT 30 U/L (21-72); AST 19 U/L (17-59); Albumin 4.2 g/dL (3.5-5.0); Alkaline Phosphatase 85 U/L (38-126); Amylase 70 U/L (30-110); Anion Gap 11 mmol/L; Blood Urea Nitrogen 14 mg/dL (9-20); Calcium 9.6 mg/dL (8.4-10.2); Carbon Dioxide 26 mmol/L (22-30); Chloride 104 mmol/L (98-107); Glucose 72 mg/dL (74-99); Lipase 280 U/L (23-300); Potassium 4.4 mmol/L (3.5-5.1); Sodium 141 mmol/L (137-145); Total Bilirubin 0.4 mg/dL (0.2-1.3); Total Protein 7.2 g/dL (6.3-8.2)
[2018-09-26] MEDS ORDERED: KETOROLAC 60 MG/2 ML VIAL IVP STA (14:26)
[2018-09-26] MEDS ORDERED: HYDROmorphone 1 MG/ML 1 ML SYRINGE IVP STA ×2 (15:15→16:01)
[2018-09-26] MEDS ORDERED: HYDROmorphone 0.5 MG/0.5 ML SYRINGE IVP STA (15:57)
[2018-09-26 16:25] VITALS: BP 158/90; PULSE 57; TEMP 97.8
== END 2018-09-26 16:23 | disposition home or self-care (01) ==
LOC: EC 12:55
DX: R10.13 Epigastric pain (principal); E11.9 Type 2 diabetes mellitus without complications; I10 Essential (primary) hypertension; Z86.010 Personal history of colon polyps; Z87.19 Personal history of other diseases of the digestive system; Z85.828 Personal history of other malignant neoplasm of skin; Z90.49 Acquired absence of other specified parts of digestive tract; Z87.891 Personal history of nicotine dependence; Z53.29 Procedure and treatment not carried out because of patient's decision for other reasons; Z98.890 Other specified postprocedural states; Z79.84 Long term (current) use of oral hypoglycemic drugs; Z79.899 Other long term (current) drug therapy
CPT/HCPCS: 36415; 93005; 80053; 82150; 83690; 85025; 99284; 96374; 96375; 96361; J1885; J1170

== ENCOUNTER 2018-09-30 09:50 | Day surgery (SDC) | payer OTHER ==
[2018-09-30 10:35] VITALS: RESP 16; TEMP 97.8
[2018-09-30] MEDS ORDERED: LACTATED RINGERS 1,000 ML IV ONE (10:36)
[2018-09-30 10:38] LABS: Glucose,Whole Blood 102 mg/dL (75-99)
[2018-09-30] MEDS ORDERED: IV FLUID CONTINUATION 1,000 ML IV ONE ×2 (11:18)
--- NOTE | 2018-09-30 11:19 | P.PCN ---
Date of Procedure: 09/30/18 Surgeon: Heike Espinoza Pathology: none sent Condition: stable Disposition: PACU Description of Procedure: PREOPERATIVE DIAGNOSIS: Chronic pancreatitis with intractable abdominal pain. POSTOPERATIVE DIAGNOSIS: Chronic Pancreatitis with intractable abdominal pain. PROCEDURE: celiac plexus block under fluoroscopy guidance . ANESTHESIA: moderate sedation with Versed 2 mg ,and fentanyl 100 g EBL: Minimal PROCEDURE INDICATION: The patient has a history of abdominal pain secondary to chronic pancreatitis that is non responsive to more conservative treatments. PROCEDURE DESCRIPTION: The patient was seen and identified in the preoperative area. Risks, benefits, complications, and alternatives were discussed with the patient. The patient agreed to proceed with the procedure and signed the consen t. IV was started, and vital signs were stable. Patient was taken to the OR and time out was completed.The patient was placed in the prone position on procedure table and a pillow was placed under the abdomen to reduce lumbar lordosis. The lumbosacral area was prepped and draped in the usual sterile fashion. Critical pause was taken. Vital signs were closely monitored during the procedure. Conscious sedation was used during the procedure to decrease patients anxiety. The procedure was performed in a similar fashion on the right side and on the left side. Using anterior-posterior fluoroscopy, the L1 spinous process and vertebral body were identified. Then, the fluoroscope was turned obliquely until the transverse process of L1 vertebra was totally behind the L1 vertebral body. Skin was then marked and infiltrated with Lidocaine 1% subcutaneously with a 25- guage needle at the level of the L2 vertebral body. Subsequently, a 22-guage 5- inch inch spinal needles was inserted and advanced toward the the anterior side of the L1 vertebral body under oblique and caudad tilt of fluoroscopic guidance and while keeping a ``tunnel view of the needle. Subsequently, 5 ml of the water soluble dye Omnipaque was injected under live fluoroscopy to confirm needle position. The spread of the dye along the anterior side of the L1 vertebral body was verified with AP and lateral fluoroscopy. After satisfactory positioning of the needle and negative aspiration for CSF, blood, or any other contents, I injected 5 MLS of lidocaine 2% with AP as a test dose and the heart rate was monitored with no changes then I injected a total of 10 mL of 0.5% preservative-free Ropivacaine with 5 ml increments and intermittent aspiration. Washout of the dye was seen and the needle was then withdrawn intact. Procedure was done bilaterally using the same technique on the right and left sides. A total of 20 ml of 0.5% preservative-free Ropivacaine and 10 MLS of lidocaine 2% with epinephrine was used during the procedure.At the end of the procedure, the operated areas were cleaned. Band-Aids were applied. COMPLICATIONS: None. DISPOSITION / PLANS: The patient was placed in a supine position and bryant sferred to the recovery area in a stable condition for observation and was discharged from the recovery room after meeting discharge criteria.Home discharge instructions given to the patient by the staff.The patient was reexamined prior to discharge. The patient will follow-up on our clinic in 4-8 weeks.
--- NOTE | 2018-09-30 11:28 | FL ---
EXAMINATION TYPE: FL guidance operating room DATE OF EXAM: 09/30/2018 CLINICAL HISTORY: Back pain. TECHNIQUE: Fluoroscopy. COMPARISON: None. FINDINGS: Fluoroscopic guidance was provided during pain relief procedure performed by Dr. Espinoza. A total of 1 minute 43 seconds of fluoroscopic time was utilized during the procedure and 3 spot duane ges are acquired. Images acquired shows needle localization near thoracolumbar junction with contras t injection. IMPRESSION: As Above.
[2018-09-30 11:32] VITALS: BP 134/78; PULSE 70
== END 2018-09-30 11:48 | disposition home or self-care (01) ==
LOC: ORPAIN 09:50
PROVIDERS: ATTEND Anesthesiology
DX: K86.1 Other chronic pancreatitis (principal); E11.9 Type 2 diabetes mellitus without complications; I10 Essential (primary) hypertension
CPT/HCPCS: 64530; J2250; J3010; Q9966; 99152; 99153

== ENCOUNTER 2018-10-05 03:45 | Emergency (ER) | payer OTHER ==
[2018-10-05] MEDS ORDERED: MORPHINE SULFATE 4 MG/ML SYRINGE IV STA (04:08)
[2018-10-05] MEDS ORDERED: SODIUM CHLORIDE 0.9% 2,000 ML IV STA (04:08)
[2018-10-05] MEDS ORDERED: ONDANSETRON 4 MG/2 ML VIAL IVP STA (04:08)
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
[2018-10-05 04:26] LABS: Basophils # (A) 0.1 k/uL (0-0.2); Basophils % (A) 0 %; Eosinophils # (A) 0.3 k/uL (0-0.7); Eosinophils % (A) 3 %; HCT 44.7 % (39.0-53.0); HGB 14.8 gm/dL (13.0-17.5); Lymphocytes # (A) 1.4 k/uL (1.0-4.8); Lymphocytes % (A) 11 %; MCH 28.4 pg (25.0-35.0); MCHC 33.1 g/dL (31.0-37.0); MCV 85.7 fL (80.0-100.0); Monocytes # (A) 0.7 k/uL (0-1.0); Monocytes % (A) 5 %; Neutrophils # (A) 9.8 k/uL (1.3-7.7); Neutrophils % (A) 79 %; Platelet Count 250 k/uL (150-450); RBC 5.22 m/uL (4.30-5.90); RDW 12.6 % (11.5-15.5); WBC 12.3 k/uL (3.8-10.6)
[2018-10-05 04:35] LABS: ALT 36 U/L (21-72); AST 17 U/L (17-59); Albumin 4.4 g/dL (3.5-5.0); Alkaline Phosphatase 87 U/L (38-126); Amylase 77 U/L (30-110); Anion Gap 12 mmol/L; Blood Urea Nitrogen 17 mg/dL (9-20); Calcium 9.4 mg/dL (8.4-10.2); Carbon Dioxide 23 mmol/L (22-30); Chloride 102 mmol/L (98-107); Glucose 158 mg/dL (74-99); Lipase 565 U/L (23-300); Sodium 137 mmol/L (137-145); Total Bilirubin 0.6 mg/dL (0.2-1.3); Total Protein 7.2 g/dL (6.3-8.2)
[2018-10-05] MEDS ORDERED: HYDROmorphone 1 MG/ML 1 ML SYRINGE IVP STA (05:03)
[2018-10-05 05:33] VITALS: RESP 19
[2018-10-05 05:46] LABS: Appearance,Urine Clear (Clear); Bilirubin,Urine Negative (Negative); Blood,Urine Negative (Negative); Color,Urine Yellow; Glucose,Urine (UA) Negative (Negative); Ketones,Urine Negative (Negative); Leukocyte Esterase,Urine Negative (Negative); Nitrite,Urine Negative (Negative); PH, Urine 6.5 (5.0-8.0); Protein,Urine Negative (Negative); Specific Gravity,Urine 1.017 (1.001-1.035); Urobilinogen,Urine <2.0 mg/dL (<2.0)
[2018-10-05 06:35] VITALS: BP 119/81; PULSE 59; TEMP 98.1
== END 2018-10-05 06:30 | disposition home or self-care (01) ==
LOC: EC 03:45
DX: K86.1 Other chronic pancreatitis (principal); E11.9 Type 2 diabetes mellitus without complications; I10 Essential (primary) hypertension; Z87.891 Personal history of nicotine dependence; Z79.84 Long term (current) use of oral hypoglycemic drugs; Z79.899 Other long term (current) drug therapy; Z85.828 Personal history of other malignant neoplasm of skin; Z79.891 Long term (current) use of opiate analgesic; Z87.39 Personal history of other diseases of the musculoskeletal system and connective tissue; Z86.010 Personal history of colon polyps; Z90.49 Acquired absence of other specified parts of digestive tract; Z98.890 Other specified postprocedural states; Z53.20 Procedure and treatment not carried out because of patient's decision for unspecified reasons
CPT/HCPCS: 99284; 96374; 96375; 96361 ×2; 36415; 80053; 82150; 83605; 83690; 84484; 85025; 81003; J2270; J2405

== ENCOUNTER 2018-10-10 08:18 | Emergency (ER) | payer OTHER ==
[2018-10-10 08:22] VITALS: RESP 18
[2018-10-10] MEDS ORDERED: MORPHINE SULFATE 4 MG/ML SYRINGE IV STA (08:24)
[2018-10-10] MEDS ORDERED: ONDANSETRON 4 MG/2 ML VIAL IVP STA (08:24)
[2018-10-10] MEDS ORDERED: SODIUM CHLORIDE 0.9% 2,000 ML IV STA (08:24)
[2018-10-10] MEDS ORDERED: KETOROLAC 30 MG/ML 1 ML VIAL IVP STA (08:24)
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
[2018-10-10 09:21] LABS: Amylase 91 U/L (30-110); Anion Gap 10 mmol/L; Blood Urea Nitrogen 13 mg/dL (9-20); Calcium 9.1 mg/dL (8.4-10.2); Carbon Dioxide 23 mmol/L (22-30); Chloride 104 mmol/L (98-107); Glucose 131 mg/dL (74-99); Lipase 648 U/L (23-300); Sodium 137 mmol/L (137-145); Total Bilirubin 0.9 mg/dL (0.2-1.3)
[2018-10-10 09:23] LABS: ALT 39 U/L (21-72); AST 29 U/L (17-59); Albumin 4.6 g/dL (3.5-5.0); Alkaline Phosphatase 76 U/L (38-126); Potassium 4.9 mmol/L (3.5-5.1); Total Protein 7.5 g/dL (6.3-8.2)
[2018-10-10 09:34] LABS: Basophils # (A) 0.1 k/uL (0-0.2); Basophils % (A) 0 %; Eosinophils # (A) 0.1 k/uL (0-0.7); Eosinophils % (A) 1 %; HCT 44.8 % (39.0-53.0); HGB 14.9 gm/dL (13.0-17.5); Lymphocytes # (A) 1.4 k/uL (1.0-4.8); Lymphocytes % (A) 9 %; MCHC 33.3 g/dL (31.0-37.0); MCV 87.2 fL (80.0-100.0); Monocytes % (A) 6 %; Neutrophils # (A) 12.7 k/uL (1.3-7.7); Neutrophils % (A) 81 %; Platelet Count 233 k/uL (150-450); RBC 5.14 m/uL (4.30-5.90); RDW 12.5 % (11.5-15.5); WBC 15.6 k/uL (3.8-10.6)
[2018-10-10] MEDS ORDERED: MORPHINE SULFATE 4 MG/ML SYRINGE IVP STA (09:56)
[2018-10-10 10:42] VITALS: BP 115/69; PULSE 63
[2018-10-10 10:51] LABS: Appearance,Urine Clear (Clear); Bilirubin,Urine Negative (Negative); Blood,Urine Negative (Negative); Color,Urine Yellow; Glucose,Urine (UA) Negative (Negative); Ketones,Urine Negative (Negative); Leukocyte Esterase,Urine Negative (Negative); Nitrite,Urine Negative (Negative); Protein,Urine Negative (Negative); Specific Gravity,Urine 1.013 (1.001-1.035); Urobilinogen,Urine <2.0 mg/dL (<2.0)
[2018-10-10 10:57] VITALS: TEMP 98.7
== END 2018-10-10 10:56 | disposition home or self-care (01) ==
LOC: EC 08:18
DX: K86.1 Other chronic pancreatitis (principal); G89.29 Other chronic pain; E11.9 Type 2 diabetes mellitus without complications; I10 Essential (primary) hypertension; Z79.84 Long term (current) use of oral hypoglycemic drugs; Z79.899 Other long term (current) drug therapy; Z87.891 Personal history of nicotine dependence; Z85.828 Personal history of other malignant neoplasm of skin; Z90.89 Acquired absence of other organs
CPT/HCPCS: 36415; 80053; 82150; 83690; 85025; 81003; 99284; 96374; 96375 ×2; 96376; 96361 ×2; J2270; J2405; J1885

== ENCOUNTER 2018-10-13 05:05 | Inpatient (IN) | payer OTHER ==
[2018-10-13] MEDS ORDERED: SODIUM CHLORIDE 0.9% 1,000 ML IV STA (05:12)
[2018-10-13] MEDS ORDERED: ONDANSETRON 4 MG/2 ML VIAL IVP STA (05:18)
[2018-10-13] MEDS ORDERED: MORPHINE SULFATE 4 MG/ML SYRINGE IVP STA ×2 (05:18→06:28)
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
[2018-10-13 05:47] LABS: Basophils # (A) 0.1 k/uL (0-0.2); Basophils % (A) 1 %; Eosinophils # (A) 0.3 k/uL (0-0.7); Eosinophils % (A) 3 %; HCT 42.1 % (39.0-53.0); HGB 13.9 gm/dL (13.0-17.5); Lymphocytes % (A) 17 %; MCH 28.4 pg (25.0-35.0); MCHC 33.1 g/dL (31.0-37.0); MCV 85.8 fL (80.0-100.0); Monocytes # (A) 0.8 k/uL (0-1.0); Monocytes % (A) 7 %; Neutrophils # (A) 8.3 k/uL (1.3-7.7); Neutrophils % (A) 71 %; Platelet Count 272 k/uL (150-450); RDW 13.3 % (11.5-15.5); WBC 11.7 k/uL (3.8-10.6)
[2018-10-13 05:53] LABS: ALT 27 U/L (21-72); AST 26 U/L (17-59); Albumin 4.4 g/dL (3.5-5.0); Alkaline Phosphatase 78 U/L (38-126); Amylase 62 U/L (30-110); Anion Gap 12 mmol/L; Blood Urea Nitrogen 19 mg/dL (9-20); Calcium 8.9 mg/dL (8.4-10.2); Carbon Dioxide 23 mmol/L (22-30); Chloride 102 mmol/L (98-107); Glucose 128 mg/dL (74-99); INR 0.9 (<1.2); Lipase 552 U/L (23-300); Partial Thromboplastin Time 26.2 sec (22.0-30.0); Prothrombin Time 9.9 sec (9.0-12.0); Sodium 137 mmol/L (137-145); Total Bilirubin 0.6 mg/dL (0.2-1.3); Total Protein 7.2 g/dL (6.3-8.2)
[2018-10-13 05:56] LABS: Potassium 4.1 mmol/L (3.5-5.1)
--- NOTE | 2018-10-13 06:12 | XR ---
EXAM: XR Abdomen, 1 View CLINICAL HISTORY: Reason: abdominal pain TECHNIQUE: Frontal upright view of the abdomen/pelvis. COMPARISON: Abdominal x-ray 09/10/2018 FINDINGS: Limitations: Technically limited as lower pelvis not included on abdominal radiograph. Intraperitoneal space: No definite pneumoperitoneum. Gastrointestinal tract: Scattered gas identified in nondilated small and large bowel. No evidence of bowel obstruction. Organs: No radiopaque renal calculi. No abnormal calcifications identified. Bones/joints: Mild degenerative changes involving lumbar spine. Soft tissues: Rectangular metallic density projecting to the mid-lower pelvis most likely related to overlying artifact. IMPRESSION: No definite evidence of bowel obstruction or pneumoperitoneum. Lower pelvis not imaged on current abdominal radiograph.
[2018-10-13] MEDS ORDERED: NALOXONE 0.4 MG/ML 1 ML VIAL IV PRN (06:37)
[2018-10-13] MEDS ORDERED: ONDANSETRON 4 MG/2 ML VIAL IVP PRN (06:37)
[2018-10-13] MEDS: SODIUM CHLORIDE 0.9% 1,000 ML IV SCH ×2 (07:33→21:57)
--- NOTE | 2018-10-13 08:13 | US ---
EXAMINATION TYPE: US gallbladder DATE OF EXAM: 10/13/2018 COMPARISON: Correlation CT 01/18/2018 CLINICAL HISTORY: 62-year-old male Pain. EC patient with recurrent epigastric pain, nausea and vomiti ng; pancreatitis TECHNIQUE: Multiple sonographic images of the right upper quadrant are obtained. FINDINGS: EXAM MEASUREMENTS: Liver Length: 22.5 cm Gallbladder Wall: 0.2 cm CBD: 6.3 mm Right Kidney: 10.7 x 6.6 x 5.6 cm Pancreas: hyperechoic, abnormally dilated pancreatic duct measuring 1.2 cm, unchanged from CT of 01/18; tail obscured by bowel gas Liver: enlarged; fatty with focal sparing near gallbladder = 3.3 x 2.4 x 3.3cm Gallbladder: Minimal sludge noted dependently. Gallbladder is mildly distended measuring 13 cm long. Tiny 5 mm calculus noted mid posterior wall in LLD position Evidence for sonographic Smith's sign: yes CBD: Borderline dilated versus 4.5 mm on 01/18/2018. Right Kidney: No hydronephrosis. IMPRESSION: 1. Gallbladder sludge, tiny 5 mm calculus, and mildly hydropic change. There is no abnormal wall thic kening or surrounding fluid. However, sonographic Smith sign is reported positive. Correlate for pos sible early acute cholecystitis. HIDA scan if further imaging evaluation is indicated. 2. Hepatomegaly (22.5 cm) with hepatic steatosis. 3. The main pancreatic duct remains diffusely dilated measuring up to 1.2 cm, similar to 01/18/2018 wh ere the patient was noted to have acute pancreatitis.
[2018-10-13] MEDS ORDERED: NON-FORMULARY DRUG (Ondansetron Hcl [Zofran] 8 MG) PO PRN (08:39)
[2018-10-13] MEDS ORDERED: NON-FORMULARY DRUG (Omeprazole [Omeprazole] 40 MG) PO SCH (09:00)
[2018-10-13] MEDS: PANTOPRAZOLE 40 MG/10 ML VIAL IV SCH (09:05)
[2018-10-13] MEDS: LISINOPRIL 5 MG TAB PO SCH (09:05)
[2018-10-13] MEDS: PREGABALIN 75 MG CAP PO SCH ×2 (09:05→20:55)
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
[2018-10-13] MEDS: INSULIN ASPART (NovoLOG) 100 UNIT/ML VIAL SQ SCH ×3 (12:00→20:55)
[2018-10-13 12:02] LABS: Glucose,Whole Blood 104 mg/dL (75-99)
[2018-10-13] MEDS: HYDROcodone/APAP 10-325MG 1 EACH TAB PO PRN (12:06)
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
[2018-10-13] MEDS: MORPHINE SULFATE 4 MG/ML SYRINGE IV PRN (14:55)
[2018-10-13 16:57] LABS: Glucose,Whole Blood 95 mg/dL (75-99)
[2018-10-13 20:48] LABS: Glucose,Whole Blood 193 mg/dL (75-99)
[2018-10-14] MEDS: MORPHINE SULFATE 4 MG/ML SYRINGE IV PRN ×3 (01:54→21:41)
[2018-10-14 07:15] LABS: Glucose,Whole Blood 117 mg/dL (75-99)
[2018-10-14 07:56] LABS: ALT 48 U/L (21-72); AST 32 U/L (17-59); Albumin 3.8 g/dL (3.5-5.0); Alkaline Phosphatase 106 U/L (38-126); Amylase <30 U/L (30-110); Anion Gap 6 mmol/L; Basophils % (A) 1 %; Blood Urea Nitrogen 10 mg/dL (9-20); Calcium 8.8 mg/dL (8.4-10.2); Carbon Dioxide 26 mmol/L (22-30); Chloride 106 mmol/L (98-107); Eosinophils # (A) 0.2 k/uL (0-0.7); Eosinophils % (A) 4 %; Glucose 111 mg/dL (74-99); HCT 40.7 % (39.0-53.0); HGB 13.5 gm/dL (13.0-17.5); Lipase 13 U/L (23-300); Lymphocytes # (A) 1.2 k/uL (1.0-4.8); Lymphocytes % (A) 22 %; MCH 28.7 pg (25.0-35.0); MCHC 33.1 g/dL (31.0-37.0); MCV 86.9 fL (80.0-100.0); Mean Platelet Volume 8.2; Monocytes # (A) 0.5 k/uL (0-1.0); Monocytes % (A) 9 %; Neutrophils # (A) 3.5 k/uL (1.3-7.7); Neutrophils % (A) 62 %; Platelet Count 247 k/uL (150-450); Potassium 4.4 mmol/L (3.5-5.1); RBC 4.69 m/uL (4.30-5.90); RDW 13.2 % (11.5-15.5); Sodium 138 mmol/L (137-145); Total Bilirubin 0.8 mg/dL (0.2-1.3); Total Protein 6.4 g/dL (6.3-8.2); WBC 5.7 k/uL (3.8-10.6)
[2018-10-14] MEDS ORDERED: LACTATED RINGERS 1,000 ML IV SCH (08:27)
--- NOTE | 2018-10-14 08:33 | P.PN ---
<Roya Conrad Anthony - Last Filed: 10/14/18 08:30> Subjective Progress Note Date: 10/14/18 CHIEF COMPLAINT: abdominal pain HISTORY OF PRESENT ILLNESS: Patient examined at the bedside this morning. Reports improvement in abdominal pain. Denies nausea or vomiting. Currently NPO for OR today. Amylase <30. Lipase 13. PHYSICAL EXAM: VITAL SIGNS: Reviewed. GENERAL: Well-developed in no acute distress. HEENT: No sclera icterus. Extraocular movements grossly intact. Moist buccal mucosa. Head is atraumatic, normocephalic. ABDOMEN: Soft. Nondistended. Mild tenderness upon palpation of right upper quadrant. NEUROLOGIC: Alert and oriented. Cranial nerves II through XII grossly intact. ASSESSMENT: 1. Right upper quadrant abdominal pain, acute on chronic 2. Elevated lipase 2. Recurrent pancreatitis, possibly secondary to previous alcohol use 3. History of daily alcohol use, reports last drink 05/2018 4. Cholelithiasis with gallbladder sludge PLAN: NPO Patient scheduled for laparoscopic cholecystectomy today with Dr. Chery Nurse practitioner note has been reviewed by physician. Signing provider agrees with the documented findings, assessment, and plan of care. Objective - Vital Signs Vital signs: Vital Signs Temp 97.9 F 10/14/18 07:57 Pulse 59 L 10/14/18 07:57 Resp 16 10/14/18 01:10 BP 116/66 10/14/18 07:57 Pulse Ox 97 10/14/18 07:57 Intake & Output 10/13/18 10/14/18 10/14/18 18:59 06:59 18:59 Intake Total 1240 937.5 Balance 1240 937.5 Intake: Amount of Fluid Infused ( 1000 ml) Intake, IV Titration 937.5 Amount Sodium Chloride 0.9% 1, 937.5 000 ml @ 75 mls/hr IV . [id number] JUSTINO Rx#:[id number] Oral 240 Other: Voiding Method Toilet # Voids 2 - Labs CBC & Chem 7: 10/14/18 07:05 10/14/18 07:05 Labs: Abnormal Lab Results - Last 24 Hours (Table) 10/13/18 10/13/18 10/14/18 Range/Units 12:00 20:46 07:03 Creatinine (0.66-1.25) mg/dL Glucose (74-99) mg/dL POC Glucose (mg/dL) 104 H 193 H 117 H (75-99) mg/dL Amylase (30-110) U/L Lipase (23-300) U/L 10/14/18 Range/Units 07:05 Creatinine 0.60 L (0.66-1.25) mg/dL Glucose 111 H (74-99) mg/dL POC Glucose (mg/dL) (75-99) mg/dL Amylase <30 L (30-110) U/L Lipase 13 L (23-300) U/L <Jose Antonio Chery - Last Filed: 10/14/18 09:45> Subjective As above. We'll proceed with cholecystectomy today. Labs from today are normalized. Objective - Vital Signs Vital signs: Vital Signs Temp 97.9 F 10/14/18 07:57 Pulse 59 L 10/14/18 07:57 Resp 16 10/14/18 01:10 BP 116/66 10/14/18 07:57 Pulse Ox 97 10/14/18 07:57 Intake & Output 10/13/18 10/14/18 10/14/18 18:59 06:59 18:59 Intake Total 1240 937.5 Balance 1240 937.5 Intake: Amount of Fluid Infused ( 1000 ml) Intake, IV Titration 937.5 Amount Sodium Chloride 0.9% 1, 937.5 000 ml @ 75 mls/hr IV . [id number] [facility] Rx#:[id number] Oral 240 Other: Voiding Method Toilet # Voids 2 - Labs CBC & Chem 7: 10/14/18 07:05 10/14/18 07:05 Labs: Abnormal Lab Results - Last 24 Hours (Table) 10/13/18 10/13/18 10/14/18 Range/Units 12:00 20:46 07:03 Creatinine (0.66-1.25) mg/dL Glucose (74-99) mg/dL POC Glucose (mg/dL) 104 H 193 H 117 H (75-99) mg/dL Amylase (30-110) U/L Lipase (23-300) U/L 10/14/18 Range/Units 07:05 Creatinine 0.60 L (0.66-1.25) mg/dL Glucose 111 H (74-99) mg/dL POC Glucose (mg/dL) (75-99) mg/dL Amylase <30 L (30-110) U/L Lipase 13 L (23-300) U/L
[2018-10-14] MEDS: INSULIN ASPART (NovoLOG) 100 UNIT/ML VIAL SQ SCH ×4 (09:13→21:37)
[2018-10-14] MEDS: LISINOPRIL 5 MG TAB PO SCH (09:13)
[2018-10-14] MEDS: PREGABALIN 75 MG CAP PO SCH ×2 (09:14→21:32)
[2018-10-14] MEDS: PANTOPRAZOLE 40 MG/10 ML VIAL IV SCH (09:17)
[2018-10-14] MEDS ORDERED: IV FLUID CONTINUATION 1,000 ML IV ONE (10:45)
[2018-10-14 10:55] LABS: Glucose,Whole Blood 108 mg/dL (75-99)
[2018-10-14] MEDS ORDERED: HEPARIN SODIUM,PORCINE 5,000 UNIT/ML 1 ML VIAL SQ ONE (10:59)
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
[2018-10-14] MEDS ORDERED: ceFAZolin 1,000 MG VIAL ONE (11:49)
[2018-10-14] MEDS ORDERED: ROCURONIUM BROMIDE 10 MG/ML 10 ML VIAL IV ONE (11:49)
[2018-10-14] MEDS ORDERED: GLYCOPYRROLATE 0.2 MG/ML 2 ML VIAL ONE (11:49)
[2018-10-14] MEDS ORDERED: LIDOCAINE 1% INJ 10MG/ML (20 ML MDV) ONE (11:49)
[2018-10-14] MEDS ORDERED: MIDAZOLAM 2 MG/2 ML VIAL ONE (11:49)
[2018-10-14] MEDS ORDERED: fentaNYL (PF) 50 MCG/ML 2 ML AMP ONE (11:49)
[2018-10-14] MEDS ORDERED: PROPOFOL 10 MG/ML 20 ML VIAL IV ONE (11:49)
[2018-10-14] MEDS ORDERED: NEOSTIGMINE 1 MG/ML 10 ML VIAL ONE (11:49)
[2018-10-14] MEDS ORDERED: SUCCINYLCHOLINE CHLORIDE 100 MG/5 ML SYR IV ONE (11:49)
[2018-10-14] MEDS ORDERED: BUPIVACAIN-EPI 0.5%-1:200,000 30 ML VIAL SQ ONE ×2 (12:25)
--- NOTE | 2018-10-14 13:02 | P.OP ---
Date of Procedure: 10/14/18 Procedure(s) Performed: PREOPERATIVE DIAGNOSIS: Acute cholecystitis with history of pancreatitis POSTOPERATIVE DIAGNOSIS: Same PROCEDURE: Laparoscopic cholecystectomy SURGEON: Miri EBL: Minimal see anesthesia record ANESTHESIA: Gen. COMPLICATIONS: None OPERATIVE PROCEDURE: The patient was brought and placed on the operating room table in the supine position. The patient was placed under general anesthesia at that time. The abdomen was prepped and draped in the usual sterile fashion. A small vertical infraumbilical incision was made. The fascia was grasped with the Isidoro forceps. The fascia was retracted anteriorly. The Veress needle was advanced into the peritoneal cavity. The saline drop test was normal. Insufflation took place up to 15 mmHg. A 5 mm optical trocar was advanced and the peritoneal cavity. 2 additional 5 mm trochars were placed in the right upper quadrant under direct visualization. A 12 mm trocar was advanced into the epigastric incision site. The gallbladder was significant only distended with some edema around it. The gallbladder was retracted superiorly and laterally. The peritoneum overlying the infundibulum was bluntly dissected. The patient's cystic duct was visualized. The junction between the cystic duct common and hepatic duct was identified. The cystic duct was then divided after placement of 3 12 mm clips on the patient's side and one on the specimen side. The cystic artery was identified and clipped as well. A small vessel was seen along the gallbladder fossa and clipped as well. The gallbladder was then removed from the liver bed using electrocautery. The gallbladder was then removed from the epigastric trocar site with an Endo Catch bag. The gallbladder fossa was irrigated with saline. There was no evidence of any bleeding or biliary drainage seen. The fascia at the 12 millimeter site was closed using a Eric- Bakari 0 Vicryl stitch. The trochars were then removed. The skin at all 4 sites was closed using a 4-0 Monocryl stitch. Skin glue was utilized on the incision sites. At the end of this procedure the sponge and needle counts were correct. DISPOSITION: Stable to the recovery room
[2018-10-14] MEDS: HYDROmorphone 1 MG/ML 1 ML SYRINGE IVP ONE ×4 (13:17→13:50)
[2018-10-14] MEDS ORDERED: KETOROLAC 30 MG/ML 1 ML VIAL IVP ONE (13:18)
[2018-10-14 13:31] LABS: Glucose,Whole Blood 108 mg/dL (75-99)
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
[2018-10-14] MEDS: SODIUM CHLORIDE 0.9% 1,000 ML IV SCH ×2 (17:00→21:42)
[2018-10-14 17:04] LABS: Glucose,Whole Blood 134 mg/dL (75-99)
[2018-10-14 17:51] LABS: Hemoglobin A1C 6.7 % (4.0-6.0)
[2018-10-14 20:29] LABS: Glucose,Whole Blood 156 mg/dL (75-99)
[2018-10-14] MEDS: HEPARIN SODIUM,PORCINE 5,000 UNIT/ML 1 ML VIAL SQ SCH (23:05)
[2018-10-15 02:48] VITALS: RESP 16
[2018-10-15] MEDS: HYDROcodone/APAP 10-325MG 1 EACH TAB PO PRN ×2 (05:45→12:32)
[2018-10-15 07:49] LABS: Glucose,Whole Blood 187 mg/dL (75-99)
[2018-10-15 07:56] LABS: Basophils # (A) 0.1 k/uL (0-0.2); Basophils % (A) 1 %; Eosinophils # (A) 0.2 k/uL (0-0.7); Eosinophils % (A) 2 %; HCT 39.5 % (39.0-53.0); Lymphocytes # (A) 1.3 k/uL (1.0-4.8); Lymphocytes % (A) 16 %; MCH 28.7 pg (25.0-35.0); MCV 87.1 fL (80.0-100.0); Mean Platelet Volume 7.8; Monocytes # (A) 0.6 k/uL (0-1.0); Monocytes % (A) 8 %; Neutrophils # (A) 5.5 k/uL (1.3-7.7); Neutrophils % (A) 71 %; Platelet Count 251 k/uL (150-450); RBC 4.53 m/uL (4.30-5.90); RDW 12.8 % (11.5-15.5); WBC 7.8 k/uL (3.8-10.6)
[2018-10-15 08:07] LABS: ALT 80 U/L (21-72); AST 50 U/L (17-59); Albumin 3.9 g/dL (3.5-5.0); Alkaline Phosphatase 163 U/L (38-126); Anion Gap 9 mmol/L; Blood Urea Nitrogen 10 mg/dL (9-20); Calcium 8.8 mg/dL (8.4-10.2); Carbon Dioxide 24 mmol/L (22-30); Chloride 105 mmol/L (98-107); Glucose 166 mg/dL (74-99); Potassium 4.4 mmol/L (3.5-5.1); Sodium 138 mmol/L (137-145); Total Bilirubin 0.6 mg/dL (0.2-1.3); Total Protein 6.5 g/dL (6.3-8.2)
[2018-10-15] MEDS: LISINOPRIL 5 MG TAB PO SCH (08:27)
[2018-10-15] MEDS: PREGABALIN 75 MG CAP PO SCH (08:27)
[2018-10-15] MEDS: INSULIN ASPART (NovoLOG) 100 UNIT/ML VIAL SQ SCH ×2 (08:27→12:32)
[2018-10-15] MEDS: PANTOPRAZOLE 40 MG/10 ML VIAL IV SCH (08:27)
[2018-10-15] MEDS: HEPARIN SODIUM,PORCINE 5,000 UNIT/ML 1 ML VIAL SQ SCH (08:27)
--- NOTE | 2018-10-15 09:56 | P.PN ---
<Roya Conrad Anthony - Last Filed: 10/15/18 12:00> Subjective Progress Note Date: 10/15/18 CHIEF COMPLAINT: abdominal pain HISTORY OF PRESENT ILLNESS: Patient examined this morning. Sitting up in the chair. Reports pain is tolerable. Tolerating diet. Denies nausea or vomiting. Denies passing flatus or BM. PHYSICAL EXAM: VITAL SIGNS: Reviewed. GENERAL: Well-developed in no acute distress. HEENT: No sclera icterus. Extraocular movements grossly intact. Moist buccal mucosa. Head is atraumatic, normocephalic. ABDOMEN: Soft. Nondistended. Surgical incision sites clean dry and intact without drainage. NEUROLOGIC: Alert and oriented. Cranial nerves II through XII grossly intact. ASSESSMENT: 1. Right upper quadrant abdominal pain, acute on chronic 2. Elevated lipase 2. Recurrent pancreatitis, possibly secondary to previous alcohol use 3. History of daily alcohol use, reports last drink 05/2018 4. Cholelithiasis with gallbladder sludge, acute cholecystitis, s/p lap donta PLAN: Continue current diet Pain control Activity as tolerated Patient may be discharged home this afternoon from a surgical standpoint Follow up with Dr. Chery in 1 week Patient takes [place] 10 Q6h at home. He may continue with this for pain management at the time of discharge and does not require RX at discharge for narcotics. Nurse practitioner note has been reviewed by physician. Signing provider agrees with the documented findings, assessment, and plan of care. Objective - Vital Signs Vital signs: Vital Signs Temp 98.7 F 10/15/18 07:45 Pulse 62 10/15/18 08:27 Resp 16 10/15/18 08:27 BP 121/76 10/15/18 07:45 Pulse Ox 95 10/15/18 07:45 Intake & Output 10/14/18 10/15/18 10/15/18 18:59 06:59 18:59 Intake Total 700 1115 Output Total 5 Balance 695 1115 Intake: IV 700 Intake, IV Titration 75 Amount Sodium Chloride 0.9% 1, 75 000 ml @ 75 mls/hr IV . [id number] [facility] Rx#:[id number] Oral 1040 Output: Estimated Blood Loss 5 Other: Voiding Method Toilet Toilet # Voids 1 - Labs CBC & Chem 7: 10/15/18 07:30 10/15/18 07:30 Labs: Abnormal Lab Results - Last 24 Hours (Table) 10/14/18 10/14/18 10/14/18 Range/Units 07:05 10:53 13:27 Glucose (74-99) mg/dL POC Glucose (mg/dL) 108 H 108 H (75-99) mg/dL Hemoglobin A1c 6.7 H (4.0-6.0) % ALT (21-72) U/L Alkaline Phosphatase (38-126) U/L 10/14/18 10/14/18 10/15/18 Range/Units 16:52 20:27 07:22 Glucose (74-99) mg/dL POC Glucose (mg/dL) 134 H 156 H 187 H (75-99) mg/dL Hemoglobin A1c (4.0-6.0) % ALT (21-72) U/L Alkaline Phosphatase (38-126) U/L 10/15/18 Range/Units 07:30 Glucose 166 H (74-99) mg/dL POC Glucose (mg/dL) (75-99) mg/dL Hemoglobin A1c (4.0-6.0) % ALT 80 H (21-72) U/L Alkaline Phosphatase 163 H (38-126) U/L <Jose Antonio Chery - Last Filed: 10/15/18 16:49> Subjective As above. Patient doing well. Stable for discharge. Objective - Vital Signs Vital signs: Vital Signs Temp 98.3 F 10/15/18 14:58 Pulse 65 10/15/18 14:58 Resp 16 10/15/18 14:58 BP 131/77 10/15/18 14:58 Pulse Ox 94 L 10/15/18 14:58 Intake & Output 10/14/18 10/15/18 10/15/18 18:59 06:59 18:59 Intake Total 700 1115 525 Output Total 5 Balance 695 1115 525 Intake: IV 700 Intake, IV Titration 75 525 Amount Sodium Chloride 0.9% 1, 75 525 000 ml @ 75 mls/hr IV . [id number] [facility] Rx#:[id number] Oral 1040 Output: Estimated Blood Loss 5 Other: Voiding Method Toilet Toilet # Voids 1 - Labs CBC & Chem 7: 10/15/18 07:30 10/15/18 07:30 Labs: Abnormal Lab Results - Last 24 Hours (Table) 10/14/18 10/14/18 10/14/18 Range/Units 07:05 16:52 20:27 Glucose (74-99) mg/dL POC Glucose (mg/dL) 134 H 156 H (75-99) mg/dL Hemoglobin A1c 6.7 H (4.0-6.0) % ALT (21-72) U/L Alkaline Phosphatase (38-126) U/L 10/15/18 10/15/18 10/15/18 Range/Units 07:22 07:30 11:32 Glucose 166 H (74-99) mg/dL POC Glucose (mg/dL) 187 H 182 H (75-99) mg/dL Hemoglobin A1c (4.0-6.0) % ALT 80 H (21-72) U/L Alkaline Phosphatase 163 H (38-126) U/L
[2018-10-15 11:45] LABS: Glucose,Whole Blood 182 mg/dL (75-99)
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
[2018-10-15] MEDS ORDERED: LIPASE 5,000/PROTEASE 17,000/AMYLASE 24,000 PO SCH ×2 (15:00→17:30)
[2018-10-15 15:56] VITALS: BP 131/77; PULSE 65; TEMP 98.3
== END 2018-10-15 17:19 | disposition home or self-care (01) | DRG 418 ==
LOC: EC 05:05 → 4SSUR 06:37 → OBSVTOIN 14:29
PROVIDERS: ADMIT Internal Medicine; ATTEND Internal Medicine
PROC: 0FT44ZZ Resection of Gallbladder, Percutaneous Endoscopic Approach (ICD-10-PCS; principal; 2018-10-14 07:30)
DX: K80.00 Calculus of gallbladder with acute cholecystitis without obstruction (principal); K86.0 Alcohol-induced chronic pancreatitis; R16.0 Hepatomegaly, not elsewhere classified; K76.0 Fatty (change of) liver, not elsewhere classified; E11.9 Type 2 diabetes mellitus without complications; G89.29 Other chronic pain; I10 Essential (primary) hypertension; F40.240 Claustrophobia; J44.9 Chronic obstructive pulmonary disease, unspecified; M10.9 Gout, unspecified; K21.9 Gastro-esophageal reflux disease without esophagitis; Z79.84 Long term (current) use of oral hypoglycemic drugs; Z79.899 Other long term (current) drug therapy; Z87.891 Personal history of nicotine dependence; Z86.010 Personal history of colon polyps; Z85.828 Personal history of other malignant neoplasm of skin; Z90.49 Acquired absence of other specified parts of digestive tract; Z87.01 Personal history of pneumonia (recurrent); Z80.7 Family history of other malignant neoplasms of lymphoid, hematopoietic and related tissues; Z80.8 Family history of malignant neoplasm of other organs or systems
CPT/HCPCS: 36415; 74018; 76705; 80053; 82150; 83036; 83690; 85025; 85610; 85730; 88304; 96361; 96374; 96375; 96376; 99285

== ENCOUNTER → 2018-10-20 | Outpatient (CLI) | payer OTHER ==
[2018-10-20 13:06] VITALS: BP 128/67; PULSE 61; RESP 16; TEMP 98.2
--- NOTE | 2018-10-20 13:26 | P.PN ---
Subjective Progress Note Date: 10/20/18 This is a 62 years old male, with a chronic history of severe epigastric abdominal pain, diagnosed with chronic pancreatitis, previously we have done a celiac plexus block 2, and recently patient had laparoscopic cholecystectomy, patient currently on Sutter 10/325 every 6 hours when necessary, and Lyrica 75 mg twice a day, and he is getting prescription refills from his primary care, he denies any side effect of the medication, and he reported the current medication her pain most of the time but occasionally he feels that the medication is not helping enough, he continued to have occasional episodes of epigastric abdominal pain Physical Examinations : -Constitutiona : Cooperative , not in acute distress . -HEENT : nech ; supple , no Lymphadenopathy , normal thyroid size . eyes : no ptosis , no icterus, no photophobia . - neurologic : Cranial nerve II to XII intact , no focal neurological deffecit . -psychatric : alert , oriented X 3 , appropriate affect , intact judgment and insight . -Lymphatic : no Lymphadenopathy . - musculoskeltal : moter stegnth lower extremities ,thigh and legs 5/5 Right side , 5/5 Left side Assessment and plan= chronic pancreatitis, status post celiac plexus block Patient currently on Sutter 10/325 every 6 hours is getting prescription refills from his primary care Patient will follow with the pain clinic when necessary PQRS Measure Charge Sheet Measure #130: Documentation of Current Meds in Medical Chart: Patient's medications documented in chart Measure #226: Tobacco Use: Screen & Cessation Intervention: Pt not a tobacco user Measure #111: Pneumonia Vaccination: Pneumococcal vaccine NOT administered or previously given Measure #47: Advance Care Plan: Advance care planning discussed & documented, pt chose/unable to give Measure #412: Opioid Treatment Agreement: No documentation of signed opioid treatment agreement Measure #408: Opioid Therapy Follow-up Evaluation: Patient had NO f/u eval minimum every 3 months during opioid therapy Measure #317: Preventitive Care & Scrn High Bld Press & F/U: Normal blood pressure, f/u not required Measure #128: Body Mass Index (BMI) Screening & Follow-up: BMI documented ABOVE normal parameters - f/u documented Measure #131: Pain Assessment & Follow-up: Pain negative & plan not documented, Follow-up scheduled Measure #431: Unhealthy Alcohol Use Preventative Care & Scrn: Patient not identified as an unhealthy alcohol user PQRS Narrative: Objective - Vital Signs Vital signs: Vital Signs Temp 98.2 F 10/20/18 12:58 Pulse 61 10/20/18 12:58 Resp 16 10/20/18 12:58 BP 128/67 10/20/18 12:58 Pulse Ox 97 10/20/18 12:58 Intake & Output 10/19/18 10/20/18 10/20/18 18:59 06:59 18:59 Weight 95.254 kg
== END | disposition home or self-care (01) ==
LOC: PNWHC3 12:50
PROVIDERS: ATTEND Specialist
DX: G89.29 Other chronic pain (principal); K86.1 Other chronic pancreatitis; Z90.49 Acquired absence of other specified parts of digestive tract; Z79.891 Long term (current) use of opiate analgesic; Z79.899 Other long term (current) drug therapy; Z98.890 Other specified postprocedural states
CPT/HCPCS: 99211

== ENCOUNTER 2018-11-07 02:47 | Emergency (ER) | payer OTHER ==
[2018-11-07] MEDS ORDERED: ONDANSETRON 4 MG/2 ML VIAL IVP STA (02:55)
[2018-11-07] MEDS ORDERED: HYDROmorphone 1 MG/ML 1 ML SYRINGE IVP STA (03:01)
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
[2018-11-07 03:15] LABS: Basophils # (A) 0.1 k/uL (0-0.2); Basophils % (A) 1 %; Eosinophils # (A) 0.5 k/uL (0-0.7); Eosinophils % (A) 4 %; HCT 43.6 % (39.0-53.0); HGB 14.4 gm/dL (13.0-17.5); Lymphocytes # (A) 2.3 k/uL (1.0-4.8); Lymphocytes % (A) 19 %; MCH 28.6 pg (25.0-35.0); MCV 86.6 fL (80.0-100.0); Monocytes # (A) 0.5 k/uL (0-1.0); Monocytes % (A) 4 %; Neutrophils # (A) 8.7 k/uL (1.3-7.7); Neutrophils % (A) 71 %; Platelet Count 280 k/uL (150-450); RBC 5.03 m/uL (4.30-5.90); RDW 13.7 % (11.5-15.5); WBC 12.2 k/uL (3.8-10.6)
[2018-11-07 03:34] LABS: Albumin 4.6 g/dL (3.5-5.0); Alcohol <10 mg/dL; Amylase 80 U/L (30-110); Anion Gap 7 mmol/L; Blood Urea Nitrogen 18 mg/dL (9-20); Calcium 9.4 mg/dL (8.4-10.2); Carbon Dioxide 29 mmol/L (22-30); Chloride 102 mmol/L (98-107); Glucose 148 mg/dL (74-99); Lipase 557 U/L (23-300); Sodium 138 mmol/L (137-145); Total Protein 7.6 g/dL (6.3-8.2)
[2018-11-07 03:42] LABS: ALT 118 U/L (21-72); AST 191 U/L (17-59); Alkaline Phosphatase 120 U/L (38-126); Potassium 4.3 mmol/L (3.5-5.1)
[2018-11-07 04:50] LABS: Appearance,Urine Clear (Clear); Bilirubin,Urine Negative (Negative); Blood,Urine Negative (Negative); Color,Urine Yellow; Glucose,Urine (UA) Negative (Negative); Ketones,Urine Negative (Negative); Leukocyte Esterase,Urine Negative (Negative); Nitrite,Urine Negative (Negative); Protein,Urine Trace (Negative); Specific Gravity,Urine 1.032 (1.001-1.035)
[2018-11-07 06:18] VITALS: BP 115/79; PULSE 75; RESP 15; TEMP 98
== END 2018-11-07 06:14 | disposition home or self-care (01) ==
LOC: EC 02:47
DX: K85.90 Acute pancreatitis without necrosis or infection, unspecified (principal); E11.9 Type 2 diabetes mellitus without complications; I10 Essential (primary) hypertension; Z87.891 Personal history of nicotine dependence; Z79.84 Long term (current) use of oral hypoglycemic drugs; Z79.899 Other long term (current) drug therapy; Z85.828 Personal history of other malignant neoplasm of skin; Z86.010 Personal history of colon polyps; Z90.49 Acquired absence of other specified parts of digestive tract; Z98.890 Other specified postprocedural states
CPT/HCPCS: 36415; 80053; 82150; 83690; 85025; 81003; 80320; 99284; 96374; 96375; J2405; J1170

== ENCOUNTER 2018-11-24 19:35 | Inpatient (IN) | payer OTHER ==
[2018-11-24] MEDS ORDERED: SODIUM CHLORIDE 0.9% 1,000 ML IV STA ×2 (20:11)
[2018-11-24] MEDS ORDERED: ONDANSETRON 4 MG/2 ML VIAL IVP STA (20:11)
[2018-11-24] MEDS ORDERED: SODIUM CHLORIDE 0.9% 500 ML 500 ML IV STA (20:11)
[2018-11-24] MEDS ORDERED: MORPHINE SULFATE 4 MG/ML SYRINGE IV STA (20:11)
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
[2018-11-24 20:46] LABS: Basophils # (A) 0.1 k/uL (0-0.2); Basophils % (A) 1 %; Eosinophils # (A) 0.4 k/uL (0-0.7); Eosinophils % (A) 2 %; HCT 42.1 % (39.0-53.0); Lymphocytes # (A) 1.9 k/uL (1.0-4.8); Lymphocytes % (A) 13 %; MCH 28.4 pg (25.0-35.0); MCHC 33.3 g/dL (31.0-37.0); MCV 85.3 fL (80.0-100.0); Monocytes # (A) 0.7 k/uL (0-1.0); Monocytes % (A) 5 %; Neutrophils # (A) 11.4 k/uL (1.3-7.7); Neutrophils % (A) 78 %; Platelet Count 270 k/uL (150-450); RBC 4.94 m/uL (4.30-5.90); RDW 14.1 % (11.5-15.5); WBC 14.6 k/uL (3.8-10.6)
[2018-11-24 20:56] LABS: ALT 36 U/L (21-72); AST 22 U/L (17-59); African American GFR (CKD) >90 (>60 ml/min/1.73 sqM); Albumin 4.5 g/dL (3.5-5.0); Alkaline Phosphatase 132 U/L (38-126); Amylase 114 U/L (30-110); Anion Gap 12 mmol/L; Blood Urea Nitrogen 19 mg/dL (9-20); Calcium 9.3 mg/dL (8.4-10.2); Carbon Dioxide 20 mmol/L (22-30); Chloride 107 mmol/L (98-107); Glucose 226 mg/dL (74-99); Lipase 1052 U/L (23-300); Potassium 4.4 mmol/L (3.5-5.1); Sodium 139 mmol/L (137-145); Total Bilirubin 0.4 mg/dL (0.2-1.3); Total Protein 7.4 g/dL (6.3-8.2)
[2018-11-24] MEDS ORDERED: MORPHINE SULFATE 4 MG/ML SYRINGE IVP STA (21:09)
[2018-11-24] MEDS ORDERED: SODIUM CHLORIDE 0.9% 1,000 ML IV ONE (21:09)
[2018-11-25] MEDS: ONDANSETRON 4 MG/2 ML VIAL IVP PRN ×4 (00:13→18:31)
[2018-11-25] MEDS: MORPHINE SULFATE 4 MG/ML SYRINGE IVP PRN ×2 (00:21→04:31)
[2018-11-25] MEDS: HYDROmorphone 1 MG/ML 1 ML SYRINGE IVP PRN ×5 (06:14→19:15)
[2018-11-25] MEDS: PANTOPRAZOLE 40 MG/10 ML VIAL IVP SCH (08:11)
[2018-11-25 10:11] LABS: Basophils # (A) 0.1 k/uL (0-0.2); Basophils % (A) 0 %; Eosinophils # (A) 0.1 k/uL (0-0.7); Eosinophils % (A) 0 %; HCT 44.1 % (39.0-53.0); HGB 14.3 gm/dL (13.0-17.5); Lymphocytes # (A) 1.2 k/uL (1.0-4.8); Lymphocytes % (A) 7 %; MCHC 32.5 g/dL (31.0-37.0); MCV 86.1 fL (80.0-100.0); Mean Platelet Volume 7.8; Monocytes % (A) 6 %; Neutrophils # (A) 14.8 k/uL (1.3-7.7); Neutrophils % (A) 86 %; Platelet Count 269 k/uL (150-450); RBC 5.12 m/uL (4.30-5.90); RDW 13.9 % (11.5-15.5); WBC 17.3 k/uL (3.8-10.6)
[2018-11-25 10:16] LABS: ALT 325 U/L (21-72); AST 281 U/L (17-59); African American GFR (CKD) >90 (>60 ml/min/1.73 sqM); Albumin 4.3 g/dL (3.5-5.0); Alkaline Phosphatase 205 U/L (38-126); Amylase 73 U/L (30-110); Anion Gap 7 mmol/L; Blood Urea Nitrogen 11 mg/dL (9-20); Calcium 9.3 mg/dL (8.4-10.2); Carbon Dioxide 26 mmol/L (22-30); Chloride 106 mmol/L (98-107); Cholesterol 149 mg/dL (<200); Glucose 182 mg/dL (74-99); HDL Cholesterol 67 mg/dL (40-60); LDL Cholesterol,Calculated 60 mg/dL (0-99); Lipase 508 U/L (23-300); Potassium 4.9 mmol/L (3.5-5.1); Sodium 139 mmol/L (137-145); Total Bilirubin 3.6 mg/dL (0.2-1.3); Total Protein 7.1 g/dL (6.3-8.2); Triglycerides 111 mg/dL (<150)
--- NOTE | 2018-11-25 10:38 | US ---
EXAMINATION TYPE: US abdomen complete DATE OF EXAM: 11/25/2018 COMPARISON: CT 2018 CLINICAL HISTORY: pancreatitis. Pancreatitis, abdomen pain, N/V, history of cholecystectomy, exam don e portable. EXAM MEASUREMENTS: Liver Length: 20.5 cm Gallbladder Wall: surgically absent CBD: 0.7 cm Spleen: 10.4 cm Right Kidney: 11.6 x 6.0 x 5.5 cm Left Kidney: 12.1 x 6.2 x 6.1 cm Pancreas: Obscured by bowel gas Liver: enlarged, heterogeneous, attenuating, hypoechoic area 3.2 x 2.3 x 2.9cm, possible focal spari ng Gallbladder: surgically absent Evidence for sonographic Smith's sign: yes CBD: wnl Spleen: wnl Right Kidney: wnl Left Kidney: wnl Upper IVC: wnl Abd Aorta: visualized portions wnl, limited by overlying midline bowel gas Evaluation of pancreas is suboptimal secondary to patient's large body habitus. Visualized liver is h eterogeneously hyperechoic consistent with diffuse fatty infiltration. Both kidneys show no suspiciou s mass or hydronephrosis on images saved. Spleen is normal in size. Gallbladder is surgically absent. IMPRESSION: Suboptimal evaluation of pancreas.
[2018-11-25] MEDS ORDERED: HYDROmorphone 2 MG TAB PO PRN (11:18)
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
[2018-11-25] MEDS: SODIUM CHLORIDE 0.9% 1,000 ML IV SCH (15:53)
[2018-11-25 16:52] LABS: Appearance,Urine Clear (Clear); Bilirubin,Urine 2+ (Negative); Blood,Urine Negative (Negative); Color,Urine Dark Yellow; Glucose,Urine (UA) Negative (Negative); Ketones,Urine Trace (Negative); Leukocyte Esterase,Urine Negative (Negative); Nitrite,Urine Negative (Negative); Protein,Urine Trace (Negative); Specific Gravity,Urine 1.031 (1.001-1.035)
[2018-11-25 16:59] LABS: Glucose,Whole Blood 144 mg/dL (75-99)
[2018-11-25] MEDS: INSULIN ASPART (NovoLOG) 100 UNIT/ML VIAL SQ SCH ×2 (17:36→20:23)
[2018-11-25 20:21] LABS: Glucose,Whole Blood 121 mg/dL (75-99)
[2018-11-26] MEDS: SODIUM CHLORIDE 0.9% 1,000 ML IV SCH ×3 (01:28→20:10)
[2018-11-26 07:04] LABS: Glucose,Whole Blood 99 mg/dL (75-99)
[2018-11-26 09:02] LABS: Basophils % (A) 0 %; Eosinophils # (A) 0.3 k/uL (0-0.7); Eosinophils % (A) 2 %; HCT 37.3 % (39.0-53.0); HGB 11.8 gm/dL (13.0-17.5); Lymphocytes # (A) 1.2 k/uL (1.0-4.8); Lymphocytes % (A) 10 %; MCH 27.7 pg (25.0-35.0); MCHC 31.8 g/dL (31.0-37.0); MCV 87.2 fL (80.0-100.0); Mean Platelet Volume 7.9; Monocytes # (A) 0.8 k/uL (0-1.0); Monocytes % (A) 7 %; Neutrophils # (A) 9.3 k/uL (1.3-7.7); Neutrophils % (A) 80 %; Platelet Count 208 k/uL (150-450); RBC 4.27 m/uL (4.30-5.90); RDW 14.4 % (11.5-15.5); WBC 11.7 k/uL (3.8-10.6)
[2018-11-26] MEDS: INSULIN ASPART (NovoLOG) 100 UNIT/ML VIAL SQ SCH ×4 (09:08→20:10)
[2018-11-26 09:11] LABS: ALT 204 U/L (21-72); AST 76 U/L (17-59); African American GFR (CKD) >90 (>60 ml/min/1.73 sqM); Albumin 3.4 g/dL (3.5-5.0); Alkaline Phosphatase 166 U/L (38-126); Amylase <30 U/L (30-110); Anion Gap 7 mmol/L; Blood Urea Nitrogen 10 mg/dL (9-20); Calcium 8.5 mg/dL (8.4-10.2); Carbon Dioxide 25 mmol/L (22-30); Chloride 106 mmol/L (98-107); Glucose 102 mg/dL (74-99); Lipase 21 U/L (23-300); Potassium 3.8 mmol/L (3.5-5.1); Sodium 138 mmol/L (137-145); Total Bilirubin 1.6 mg/dL (0.2-1.3); Total Protein 5.9 g/dL (6.3-8.2)
[2018-11-26] MEDS: PANTOPRAZOLE 40 MG/10 ML VIAL IVP SCH (09:16)
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
[2018-11-26] MEDS: HYDROmorphone 1 MG/ML 1 ML SYRINGE IVP PRN (10:35)
--- NOTE | 2018-11-26 10:43 | P.PN ---
Subjective Progress Note Date: 11/26/18 CHIEF COMPLAINT: abdominal pain HISTORY OF PRESENT ILLNESS: Patient examined at the bedside. Patient states his pain is significantly improved this morning and is only having minimal right upper quadrant tenderness. Denies further episodes of nausea or vomiting. Bilirubin 1.6. AST 76. ALT 204. PHYSICAL EXAM: VITAL SIGNS: Reviewed. GENERAL: Well-developed in no acute distress. HEENT: No sclera icterus. Extraocular movements grossly intact. Moist buccal mucosa. Head is atraumatic, normocephalic. ABDOMEN: Soft. Nondistended. Minimal tenderness upon palpation of right upper quadrant. NEUROLOGIC: Alert and oriented. Cranial nerves II through XII grossly intact. ASSESSMENT: 1. Abdominal pain, acute on chronic 2. Acute on chronic pancreatitis, possibly secondary to previous alcohol use 3. History of daily alcohol use, reports last drink 05/2018 4. History of laparoscopic cholecystectomy 5. Elevated LFTs and bilirubin PLAN: Patient scheduled for MRCP today per GI services NPO. Possible advancement of diet pending MRCP results Continue IV fluids Pain control Further recommendations pending patient course Nurse practitioner note has been reviewed by physician. Signing provider agrees with the documented findings, assessment, and plan of care. Objective - Vital Signs Vital signs: Vital Signs Temp 98.8 F 11/26/18 06:06 Pulse 73 11/26/18 06:06 Resp 18 11/26/18 06:06 BP 127/67 11/26/18 06:06 Pulse Ox 97 11/26/18 06:06 Intake & Output 11/25/18 11/26/18 11/26/18 18:59 06:59 18:59 Intake Total 800 800 Balance 800 800 Intake: Intake, IV Titration 800 800 Amount Sodium Chloride 0.9% 1, 800 800 000 ml @ 100 mls/hr IV . Q10H ONE Rx#:[id number] Oral 0 Other: # Voids 1 - Labs CBC & Chem 7: 11/26/18 08:14 11/26/18 08:14 Labs: Abnormal Lab Results - Last 24 Hours (Table) 11/25/18 11/25/18 11/25/18 Range/Units 16:00 16:57 20:08 WBC (3.8-10.6) k/uL RBC (4.30-5.90) m/uL Hgb (13.0-17.5) gm/dL Hct (39.0-53.0) % Neutrophils # (1.3-7.7) k/uL Glucose (74-99) mg/dL POC Glucose (mg/dL) 144 H 121 H (75-99) mg/dL Total Bilirubin (0.2-1.3) mg/dL AST (17-59) U/L ALT (21-72) U/L Alkaline Phosphatase (38-126) U/L Total Protein (6.3-8.2) g/dL Albumin (3.5-5.0) g/dL Amylase (30-110) U/L Lipase (23-300) U/L Urine Protein Trace H (Negative) Urine Ketones Trace H (Negative) Urine Bilirubin 2+ H (Negative) 11/26/18 11/26/18 Range/Units 08:14 08:14 WBC 11.7 H (3.8-10.6) k/uL RBC 4.27 L (4.30-5.90) m/uL Hgb 11.8 L (13.0-17.5) gm/dL Hct 37.3 L (39.0-53.0) % Neutrophils # 9.3 H (1.3-7.7) k/uL Glucose 102 H (74-99) mg/dL POC Glucose (mg/dL) (75-99) mg/dL Total Bilirubin 1.6 H (0.2-1.3) mg/dL AST 76 H (17-59) U/L ALT 204 H (21-72) U/L Alkaline Phosphatase 166 H (38-126) U/L Total Protein 5.9 L (6.3-8.2) g/dL Albumin 3.4 L (3.5-5.0) g/dL Amylase <30 L (30-110) U/L Lipase 21 L (23-300) U/L Urine Protein (Negative) Urine Ketones (Negative) Urine Bilirubin (Negative)
[2018-11-26] MEDS: LISINOPRIL 5 MG TAB PO SCH (11:19)
--- NOTE | 2018-11-26 12:02 | MR ---
EXAMINATION TYPE: MR MRCP DATE OF EXAM: 11/26/2018 COMPARISON: Gallbladder ultrasound dated 10/13/2018 and abdominal ultrasound dated 11/25/2018. CT abdome n and pelvis dated 01/02/2018 and 01/18/2018. HISTORY: Pancreatitis FINDINGS Standard multiplanar, multisequence MRCP departmental protocol FINDINGS: The liver demonstrates sharp out of signal on out of phase imaging compatible with hepatic steatosis, limiting evaluation for hepatic masses. Additionally the lack of intravenous contrast on this examin ation also limits the hepatic mass evaluation and identification. There are geographic areas of subse yamil fatty sparing. No focal T2 hyperintense lesion is identified. There is mild diffuse intrahepatic biliary ductal dilatation. The cystic duct has a low insertion int o the common bile duct, normal variant. The common bile duct measures up to 6 mm, within normal limit s and the common hepatic duct up to 7 mm. There is long segment smooth tapering of the distal common bile duct measuring 3 mm ovary 1.2 cm distance. Proximal to this the common bile duct measures 5 mm a nd distal esophagus the common bile duct measures 5 mm as well. There is marked dilatation of the iftikhar n pancreatic duct throughout measuring 9 mm in the pancreatic body and 1 cm in the pancreatic head. T here are innumerable side branches that are also dilated. The distal common bile duct and main pancre atic duct are not well seen emptying into the ampulla of Vater. Considerations are for stricture or p eriampullary mass with pancreatic head mass a less likely consideration. T2 hyperintense fat strandin g is seen surrounding the duodenum and pancreatic head. This is also seen to a lesser degree surround ing the pancreatic body. There is loss of the acinar pattern of the pancreatic head likely from edema . The spleen is of unremarkable signal without splenomegaly. The adrenal glands are unremarkable. No elo wel dilatation is seen. Few left renal sinus cysts are noted. No suspicious renal mass is identified although contrast is not utilized, somewhat limiting evaluation. Bone marrow signal appears within no rmal limits. Lung bases appear well aerated. The portal venous confluence appears grossly patent as d oes the splenic vein with flow voids are maintained. IMPRESSION: 1. Recurrent acute edematous pancreatitis most focal surrounding the pancreatic head creating seconda ry inflammatory duodenitis. 2. Markedly dilated main pancreatic duct and numerous side branch ducts are likely on the basis of ch ronic pancreatitis however there is also smooth distal narrowing of the common bile duct in the pancr eatic portion and narrowing of the most distal aspect of the main pancreatic duct. Strictures are krupa pected from prior pancreatitis within both ducts however obstructing periampullary mass or much less likely underlying pancreatic head mass inducing pancreatitis are possible and could be further evalua tracy with contrast or direct visualization. 3. Redemonstration of hepatic steatosis with geographic areas of focal fatty sparing.
[2018-11-26 12:12] LABS: Glucose,Whole Blood 115 mg/dL (75-99)
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
[2018-11-26 17:00] LABS: Glucose,Whole Blood 136 mg/dL (75-99)
[2018-11-26 20:05] LABS: Glucose,Whole Blood 190 mg/dL (75-99)
[2018-11-27] MEDS: HYDROmorphone 1 MG/ML 1 ML SYRINGE IVP PRN ×6 (03:11→20:06)
[2018-11-27] MEDS: SODIUM CHLORIDE 0.9% 1,000 ML IV SCH ×3 (03:12→20:06)
[2018-11-27 06:58] LABS: Glucose,Whole Blood 128 mg/dL (75-99)
[2018-11-27] MEDS: INSULIN ASPART (NovoLOG) 100 UNIT/ML VIAL SQ SCH ×4 (07:09→20:06)
[2018-11-27] MEDS: ONDANSETRON 4 MG/2 ML VIAL IVP PRN ×2 (08:58→14:57)
[2018-11-27] MEDS: PANTOPRAZOLE 40 MG/10 ML VIAL IVP SCH (08:58)
[2018-11-27] MEDS: ENOXAPARIN 40 MG/0.4 ML SYRINGE SQ SCH (08:58)
[2018-11-27] MEDS: LISINOPRIL 5 MG TAB PO SCH (09:00)
[2018-11-27 09:44] LABS: Basophils # (A) 0.1 k/uL (0-0.2); Basophils % (A) 1 %; Eosinophils # (A) 0.3 k/uL (0-0.7); Eosinophils % (A) 4 %; HCT 39.4 % (39.0-53.0); HGB 12.6 gm/dL (13.0-17.5); Lymphocytes # (A) 1.3 k/uL (1.0-4.8); Lymphocytes % (A) 18 %; MCH 27.9 pg (25.0-35.0); MCHC 31.9 g/dL (31.0-37.0); MCV 87.5 fL (80.0-100.0); Monocytes # (A) 0.5 k/uL (0-1.0); Monocytes % (A) 7 %; Neutrophils # (A) 4.9 k/uL (1.3-7.7); Neutrophils % (A) 68 %; Platelet Count 224 k/uL (150-450); RDW 14.5 % (11.5-15.5); WBC 7.3 k/uL (3.8-10.6)
[2018-11-27 09:49] LABS: ALT 169 U/L (21-72); AST 70 U/L (17-59); African American GFR (CKD) >90 (>60 ml/min/1.73 sqM); Albumin 3.9 g/dL (3.5-5.0); Alkaline Phosphatase 299 U/L (38-126); Anion Gap 8 mmol/L; Blood Urea Nitrogen 8 mg/dL (9-20); Calcium 8.9 mg/dL (8.4-10.2); Carbon Dioxide 26 mmol/L (22-30); Chloride 107 mmol/L (98-107); Glucose 140 mg/dL (74-99); Potassium 3.8 mmol/L (3.5-5.1); Sodium 141 mmol/L (137-145); Total Bilirubin 1.6 mg/dL (0.2-1.3); Total Protein 6.8 g/dL (6.3-8.2)
--- NOTE | 2018-11-27 10:29 | P.PN ---
Subjective Progress Note Date: 11/27/18 CHIEF COMPLAINT: abdominal pain HISTORY OF PRESENT ILLNESS: Patient examined at the bedside. Patient states he is having abdominal pain this morning, worse than yesterday. Mild nausea. No vomiting. Bilirubin 1.6. AST 70. ALT 169. PHYSICAL EXAM: VITAL SIGNS: Reviewed. GENERAL: Well-developed in no acute distress. HEENT: No sclera icterus. Extraocular movements grossly intact. Moist buccal mucosa. Head is atraumatic, normocephalic. ABDOMEN: Soft. Nondistended. Minimal tenderness upon palpation of right upper quadrant. NEUROLOGIC: Alert and oriented. Cranial nerves II through XII grossly intact. ASSESSMENT: 1. Abdominal pain, acute on chronic 2. Acute on chronic pancreatitis 3. History of daily alcohol use, reports last drink 05/2018 4. History of laparoscopic cholecystectomy 5. Elevated LFTs and bilirubin PLAN: MRCP reviewed. Will defer further intervention to GI services Continue IV fluids Pain control We will sign off. Please reconsult if needed. Nurse practitioner note has been reviewed by physician. Signing provider agrees with the documented findings, assessment, and plan of care. Objective - Vital Signs Vital signs: Vital Signs Temp 97.8 F 11/27/18 05:51 Pulse 62 11/27/18 05:51 Resp 18 11/27/18 05:51 BP 146/75 11/27/18 05:51 Pulse Ox 98 11/27/18 05:51 Intake & Output 11/26/18 11/27/18 11/27/18 18:59 06:59 18:59 Intake Total 550 Balance 550 Intake: Oral 550 Other: Voiding Method Toilet Urinal # Voids 3 2 # Bowel Movements 0 0 - Labs CBC & Chem 7: 11/27/18 09:15 11/27/18 09:15 Labs: Abnormal Lab Results - Last 24 Hours (Table) 11/26/18 11/26/18 11/26/18 Range/Units 12:10 16:56 19:57 Hgb (13.0-17.5) gm/dL BUN (9-20) mg/dL Creatinine (0.66-1.25) mg/dL Glucose (74-99) mg/dL POC Glucose (mg/dL) 115 H 136 H 190 H (75-99) mg/dL Total Bilirubin (0.2-1.3) mg/dL AST (17-59) U/L ALT (21-72) U/L Alkaline Phosphatase (38-126) U/L 11/27/18 11/27/18 11/27/18 Range/Units 06:54 09:15 09:15 Hgb 12.6 L (13.0-17.5) gm/dL BUN 8 L (9-20) mg/dL Creatinine 0.63 L (0.66-1.25) mg/dL Glucose 140 H (74-99) mg/dL POC Glucose (mg/dL) 128 H (75-99) mg/dL Total Bilirubin 1.6 H (0.2-1.3) mg/dL AST 70 H (17-59) U/L ALT 169 H (21-72) U/L Alkaline Phosphatase 299 H (38-126) U/L Microbiology - Last 24 Hours (Table) 11/25/18 16:25 Blood Culture - Preliminary Blood No Growth after 24 hours
[2018-11-27 11:29] LABS: Glucose,Whole Blood 127 mg/dL (75-99)
[2018-11-27 11:42] VITALS: BMI 32.3
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
--- NOTE | 2018-11-27 12:43 | P.PN ---
Subjective Progress Note Date: 11/27/18 Principal diagnosis: Acute on chronic pancreatitis LFTs stable total bilirubin 1.6. AST 70. ALT 169. AP to 99. Lipase normalized 28. Still reports abdominal pain. Afebrile. White count 7.3. Hemoglobin 12.6. Objective - Vital Signs Vital signs: Vital Signs Temp 97.8 F 11/27/18 05:51 Pulse 62 11/27/18 05:51 Resp 18 11/27/18 05:51 BP 146/75 11/27/18 05:51 Pulse Ox 98 11/27/18 05:51 Intake & Output 11/26/18 11/27/18 11/27/18 18:59 06:59 18:59 Intake Total 550 Balance 550 Weight 90.718 kg Intake: Oral 550 Other: Voiding Method Toilet Urinal # Voids 3 2 # Bowel Movements 0 0 - Exam General appearance: The patient is alert, oriented, in no acute distress. HET: Head is normocephalic and atraumatic. Pupils are equal and reactive. Oropharynx is clear without lesions. Neck: Supple without lymphadenopathy. Trachea midline. Heart: S1 S2. Regular rate and rhythm. Lungs: No crackles or wheezes are heard. Abdomen: Soft, midepigastric left upper quadrant tenderness, nondistended with bowel sounds. No peritoneal signs. No palpable organomegaly or masses. Extremities: Normal skin color and turgor. No cyanosis, rash, ulceration, clubbing, or edema. Radial and pedal pulses are 2/4 bilaterally. Neurological: No focal deficits. Strength and sensation are grossly intact. - Labs CBC & Chem 7: 11/27/18 09:15 11/27/18 09:15 Labs: Abnormal Lab Results - Last 24 Hours (Table) 11/26/18 11/26/18 11/27/18 Range/Units 16:56 19:57 06:54 Hgb (13.0-17.5) gm/dL BUN (9-20) mg/dL Creatinine (0.66-1.25) mg/dL Glucose (74-99) mg/dL POC Glucose (mg/dL) 136 H 190 H 128 H (75-99) mg/dL Total Bilirubin (0.2-1.3) mg/dL AST (17-59) U/L ALT (21-72) U/L Alkaline Phosphatase (38-126) U/L 11/27/18 11/27/18 11/27/18 Range/Units 09:15 09:15 11:27 Hgb 12.6 L (13.0-17.5) gm/dL BUN 8 L (9-20) mg/dL Creatinine 0.63 L (0.66-1.25) mg/dL Glucose 140 H (74-99) mg/dL POC Glucose (mg/dL) 127 H (75-99) mg/dL Total Bilirubin 1.6 H (0.2-1.3) mg/dL AST 70 H (17-59) U/L ALT 169 H (21-72) U/L Alkaline Phosphatase 299 H (38-126) U/L Microbiology - Last 24 Hours (Table) 11/25/18 16:25 Blood Culture - Preliminary Blood No Growth after 24 hours Assessment and Plan (1) Acute pancreatitis Narrative/Plan: 62-year-old male with a history of chronic pancreatitis recent laparoscopic cholecystectomy for calculus cholecystitis presents with leukocytosis, abdominal pain, worsening liver enzymes and pancreatitis secondary to suspected acute biliary pancreatitis. Underlying passage of choledocholithiasis is within the differential even though MRCP did not report obvious CBD stone. Component of peripancreatic edema contributing to elevated liver enzymes as well. Liver and pancreatic enzymes are improving however MRCP results indicated acute edematous pancreatitis surrounding mostly the pancreatic head as well as a markedly dilated main pancreatic duct and numerous side branch ducts likely on the basis of chronic pancreatitis. Underlying stricture disease and/or obstructing britta ampullary pancreatic head mass cannot be entirely excluded. Current Visit: Yes Status: Acute Code(s): K85.90 - ACUTE PANCREATITIS WITHOUT NECROSIS OR INFECTION, UNSP SNOMED Code(s): 188285256 (2) Hepatomegaly Current Visit: Yes Status: Acute Code(s): R16.0 - HEPATOMEGALY, NOT ELSEWHERE CLASSIFIED SNOMED Code(s): 62555585 (3) Hepatic steatosis Current Visit: Yes Status: Acute Code(s): K76.0 - FATTY (CHANGE OF) LIVER, NOT ELSEWHERE CLASSIFIED SNOMED Code(s): 267114843 (4) H/O ETOH abuse Current Visit: Yes Status: Acute Code(s): F10.11 - ALCOHOL ABUSE, IN REMISSION SNOMED Code(s): 944688891 Plan: 1. Considering liver function tests are stable inpatient ERCP not planned at this time however patient will require outpatient EUS/ERCP at tertiary center for further investigation of MRCP findings. GI office will assist with EUS referral [facility]. 2. Continue IV antibiotics leukocytosis resolved. IV hydration 125 mL an hour. Light diet as tolerated. Discharge per medicine. Daily monitoring of CBC CMP lipase. Assessment and plan a care discussed with Dr. Kelsey
[2018-11-27 16:59] LABS: Glucose,Whole Blood 120 mg/dL (75-99)
[2018-11-27 20:07] LABS: Glucose,Whole Blood 109 mg/dL (75-99)
[2018-11-28] MEDS: ONDANSETRON 4 MG/2 ML VIAL IVP PRN ×2 (01:35→07:26)
[2018-11-28] MEDS: HYDROmorphone 1 MG/ML 1 ML SYRINGE IVP PRN ×3 (01:35→07:26)
[2018-11-28] MEDS: SODIUM CHLORIDE 0.9% 1,000 ML IV SCH ×3 (01:41→20:14)
[2018-11-28 06:54] LABS: Glucose,Whole Blood 106 mg/dL (75-99)
[2018-11-28] MEDS: INSULIN ASPART (NovoLOG) 100 UNIT/ML VIAL SQ SCH ×4 (07:22→21:39)
[2018-11-28 07:34] LABS: Basophils # (A) 0.1 k/uL (0-0.2); Basophils % (A) 1 %; Eosinophils # (A) 0.3 k/uL (0-0.7); Eosinophils % (A) 4 %; HCT 36.1 % (39.0-53.0); HGB 11.6 gm/dL (13.0-17.5); Lymphocytes # (A) 1.4 k/uL (1.0-4.8); Lymphocytes % (A) 21 %; MCV 87.5 fL (80.0-100.0); Mean Platelet Volume 7.8; Monocytes # (A) 0.5 k/uL (0-1.0); Monocytes % (A) 7 %; Neutrophils # (A) 4.2 k/uL (1.3-7.7); Neutrophils % (A) 64 %; Platelet Count 232 k/uL (150-450); RBC 4.13 m/uL (4.30-5.90); RDW 14.2 % (11.5-15.5); WBC 6.5 k/uL (3.8-10.6)
[2018-11-28 07:55] LABS: ALT 163 U/L (21-72); AST 85 U/L (17-59); African American GFR (CKD) >90 (>60 ml/min/1.73 sqM); Albumin 3.5 g/dL (3.5-5.0); Alkaline Phosphatase 275 U/L (38-126); Amylase <30 U/L (30-110); Anion Gap 6 mmol/L; Blood Urea Nitrogen 7 mg/dL (9-20); Calcium 8.7 mg/dL (8.4-10.2); Carbon Dioxide 28 mmol/L (22-30); Chloride 105 mmol/L (98-107); Glucose 110 mg/dL (74-99); Lipase 30 U/L (23-300); Potassium 4.6 mmol/L (3.5-5.1); Sodium 139 mmol/L (137-145); Total Bilirubin 1.9 mg/dL (0.2-1.3); Total Protein 6.1 g/dL (6.3-8.2)
[2018-11-28] MEDS: LISINOPRIL 5 MG TAB PO SCH (09:59)
[2018-11-28] MEDS: ENOXAPARIN 40 MG/0.4 ML SYRINGE SQ SCH (09:59)
[2018-11-28] MEDS: PANTOPRAZOLE 40 MG TABLET PO SCH (09:59)
--- NOTE | 2018-11-28 10:36 | P.PN ---
Progress Note - Text Progress Note Date: 11/28/18 Patient's amylase lipase are both normal. His abdominal pain has improved. He apparently will be sent to [facility] for endoscopic ultrasound and further workup of his chronic pancreatitis. On exam his vital signs are stable. stable. His clinical condition is unchanged. No surgical intervention is planned.
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
[2018-11-28 11:39] LABS: Glucose,Whole Blood 141 mg/dL (75-99)
[2018-11-28] MEDS: Lipase/Protease/Amylase [Creon Dr 36,000 Units Capsule] PO SCH ×2 (14:30→18:41)
[2018-11-28 17:06] LABS: Glucose,Whole Blood 228 mg/dL (75-99)
[2018-11-28 20:41] LABS: Glucose,Whole Blood 204 mg/dL (75-99)
[2018-11-29] MEDS: SODIUM CHLORIDE 0.9% 1,000 ML IV SCH ×3 (03:32→22:02)
[2018-11-29 07:08] LABS: Glucose,Whole Blood 183 mg/dL (75-99)
[2018-11-29 07:35] LABS: Basophils # (A) 0.1 k/uL (0-0.2); Basophils % (A) 1 %; Eosinophils # (A) 0.2 k/uL (0-0.7); Eosinophils % (A) 4 %; HCT 38.4 % (39.0-53.0); HGB 12.7 gm/dL (13.0-17.5); Lymphocytes % (A) 19 %; MCH 28.6 pg (25.0-35.0); MCHC 33.1 g/dL (31.0-37.0); MCV 86.5 fL (80.0-100.0); Monocytes # (A) 0.4 k/uL (0-1.0); Monocytes % (A) 8 %; Neutrophils # (A) 3.4 k/uL (1.3-7.7); Neutrophils % (A) 66 %; Platelet Count 266 k/uL (150-450); RBC 4.44 m/uL (4.30-5.90); RDW 13.9 % (11.5-15.5); WBC 5.2 k/uL (3.8-10.6)
[2018-11-29 07:54] LABS: ALT 253 U/L (21-72); AST 152 U/L (17-59); African American GFR (CKD) >90 (>60 ml/min/1.73 sqM); Albumin 3.8 g/dL (3.5-5.0); Alkaline Phosphatase 353 U/L (38-126); Anion Gap 9 mmol/L; Blood Urea Nitrogen 7 mg/dL (9-20); Calcium 8.9 mg/dL (8.4-10.2); Carbon Dioxide 23 mmol/L (22-30); Chloride 109 mmol/L (98-107); Glucose 186 mg/dL (74-99); Potassium 4.2 mmol/L (3.5-5.1); Sodium 141 mmol/L (137-145); Total Bilirubin 1.8 mg/dL (0.2-1.3); Total Protein 6.6 g/dL (6.3-8.2)
[2018-11-29] MEDS: Lipase/Protease/Amylase [Creon Dr 36,000 Units Capsule] PO SCH ×3 (08:13→17:10)
[2018-11-29] MEDS: ENOXAPARIN 40 MG/0.4 ML SYRINGE SQ SCH (08:13)
[2018-11-29] MEDS: INSULIN ASPART (NovoLOG) 100 UNIT/ML VIAL SQ SCH ×4 (08:14→20:40)
[2018-11-29] MEDS: LISINOPRIL 5 MG TAB PO SCH (08:14)
[2018-11-29] MEDS: PANTOPRAZOLE 40 MG TABLET PO SCH (08:14)
[2018-11-29 11:24] LABS: Glucose,Whole Blood 224 mg/dL (75-99)
[2018-11-29] MEDS: MAGNESIUM HYDROXIDE 2,400 MG/10 ML CUP PO PRN ×2 (14:38→20:40)
[2018-11-29 16:59] LABS: Glucose,Whole Blood 201 mg/dL (75-99)
[2018-11-29 19:47] VITALS: RESP 15
[2018-11-29 20:47] LABS: Glucose,Whole Blood 227 mg/dL (75-99)
[2018-11-30] MEDS: SODIUM CHLORIDE 0.9% 1,000 ML IV SCH ×2 (05:08→11:54)
[2018-11-30 06:57] LABS: Glucose,Whole Blood 183 mg/dL (75-99)
[2018-11-30] MEDS: PANTOPRAZOLE 40 MG TABLET PO SCH (07:07)
[2018-11-30] MEDS: LISINOPRIL 5 MG TAB PO SCH (07:08)
[2018-11-30] MEDS: Lipase/Protease/Amylase [Creon Dr 36,000 Units Capsule] PO SCH ×2 (07:08→12:04)
[2018-11-30] MEDS: INSULIN ASPART (NovoLOG) 100 UNIT/ML VIAL SQ SCH ×2 (07:08→12:04)
[2018-11-30] MEDS: ENOXAPARIN 40 MG/0.4 ML SYRINGE SQ SCH (07:08)
[2018-11-30 08:08] LABS: Basophils # (A) 0.1 k/uL (0-0.2); Basophils % (A) 1 %; Eosinophils # (A) 0.2 k/uL (0-0.7); Eosinophils % (A) 4 %; HCT 37.8 % (39.0-53.0); HGB 12.4 gm/dL (13.0-17.5); Lymphocytes # (A) 1.1 k/uL (1.0-4.8); Lymphocytes % (A) 24 %; MCH 28.6 pg (25.0-35.0); MCHC 32.8 g/dL (31.0-37.0); MCV 87.2 fL (80.0-100.0); Mean Platelet Volume 7.9; Monocytes # (A) 0.3 k/uL (0-1.0); Monocytes % (A) 6 %; Neutrophils % (A) 64 %; Platelet Count 265 k/uL (150-450); RBC 4.34 m/uL (4.30-5.90); RDW 13.9 % (11.5-15.5); WBC 4.8 k/uL (3.8-10.6)
[2018-11-30 08:13] VITALS: BP 140/80; PULSE 60; TEMP 97.8
[2018-11-30 08:30] LABS: ALT 238 U/L (21-72); AST 108 U/L (17-59); African American GFR (CKD) >90 (>60 ml/min/1.73 sqM); Albumin 3.6 g/dL (3.5-5.0); Alkaline Phosphatase 310 U/L (38-126); Anion Gap 7 mmol/L; Blood Urea Nitrogen 8 mg/dL (9-20); Calcium 8.7 mg/dL (8.4-10.2); Carbon Dioxide 26 mmol/L (22-30); Chloride 108 mmol/L (98-107); Glucose 179 mg/dL (74-99); Potassium 4.4 mmol/L (3.5-5.1); Sodium 141 mmol/L (137-145); Total Protein 6.3 g/dL (6.3-8.2)
[2018-11-30 11:25] LABS: Glucose,Whole Blood 234 mg/dL (75-99)
--- NOTE | 2018-11-30 11:38 | P.PN ---
Subjective Progress Note Date: 11/30/18 CHIEF COMPLAINT: abdominal pain HISTORY OF PRESENT ILLNESS: Patient examined at the bedside. Patient denies abdominal pain. Denies nausea or vomiting. Tolerating diet. AST 108. ALT 238. Patient is hoping to be discharged home today. PHYSICAL EXAM: VITAL SIGNS: Reviewed. GENERAL: Well-developed in no acute distress. HEENT: No sclera icterus. Extraocular movements grossly intact. Moist buccal mucosa. Head is atraumatic, normocephalic. ABDOMEN: Soft. Nondistended. Nontender NEUROLOGIC: Alert and oriented. Cranial nerves II through XII grossly intact. ASSESSMENT: 1. Abdominal pain, acute on chronic 2. Acute on chronic pancreatitis 3. History of daily alcohol use, reports last drink 05/2018 4. History of laparoscopic cholecystectomy 5. Elevated LFTs and bilirubin PLAN: Patient is stable for discharge from a surgical standpoint. We will sign off. Please reconsult if needed. Nurse practitioner note has been reviewed by physician. Signing provider agrees with the documented findings, assessment, and plan of care. Objective - Vital Signs Vital signs: Vital Signs Temp 97.8 F 11/30/18 07:56 Pulse 60 11/30/18 07:56 Resp 15 11/30/18 00:16 BP 140/80 11/30/18 07:56 Pulse Ox 96 11/30/18 07:56 Intake & Output 11/29/18 11/30/18 11/30/18 18:59 06:59 18:59 Intake Total 1470 2000 180 Balance 1470 2000 180 Intake: Intake, IV Titration 1050 2000 Amount Sodium Chloride 0.9% 1, 1000 2000 000 ml @ 125 mls/hr IV . Q8H JUSTINO Rx#:[id number] cefTRIAXone 1 gm In 50 Sodium Chloride 0.9% 50 ml @ 100 mls/hr IVPB Q24H JUSTINO Rx#:[id number] Oral 420 180 Other: Voiding Method Toilet Toilet # Voids 3 - Labs CBC & Chem 7: 11/30/18 06:53 11/30/18 06:53 Labs: Abnormal Lab Results - Last 24 Hours (Table) 11/29/18 11/29/18 11/30/18 Range/Units 16:47 20:35 06:53 Hgb 12.4 L (13.0-17.5) gm/dL Hct 37.8 L (39.0-53.0) % Chloride (98-107) mmol/L BUN (9-20) mg/dL Creatinine (0.66-1.25) mg/dL Glucose (74-99) mg/dL POC Glucose (mg/dL) 201 H 227 H (75-99) mg/dL AST (17-59) U/L ALT (21-72) U/L Alkaline Phosphatase (38-126) U/L 11/30/18 11/30/18 11/30/18 Range/Units 06:53 06:56 11:23 Hgb (13.0-17.5) gm/dL Hct (39.0-53.0) % Chloride 108 H (98-107) mmol/L BUN 8 L (9-20) mg/dL Creatinine 0.63 L (0.66-1.25) mg/dL Glucose 179 H (74-99) mg/dL POC Glucose (mg/dL) 183 H 234 H (75-99) mg/dL AST 108 H (17-59) U/L ALT 238 H (21-72) U/L Alkaline Phosphatase 310 H (38-126) U/L Microbiology - Last 24 Hours (Table) 11/25/18 16:25 Blood Culture - Preliminary Blood No Growth after 96 hours
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
== END 2018-11-30 14:16 | disposition home or self-care (01) | DRG 440 ==
LOC: EC 19:35 → 4MS4W 21:09 → 4SSUR 11-27 15:50
PROVIDERS: ADMIT Internal Medicine; ATTEND Internal Medicine
DX: K85.20 Alcohol induced acute pancreatitis without necrosis or infection (principal); K86.1 Other chronic pancreatitis; I10 Essential (primary) hypertension; E11.9 Type 2 diabetes mellitus without complications; J44.9 Chronic obstructive pulmonary disease, unspecified; K76.0 Fatty (change of) liver, not elsewhere classified; R16.0 Hepatomegaly, not elsewhere classified; M10.9 Gout, unspecified; G89.29 Other chronic pain; F10.20 Alcohol dependence, uncomplicated; K29.80 Duodenitis without bleeding; K80.50 Calculus of bile duct without cholangitis or cholecystitis without obstruction; F12.90 Cannabis use, unspecified, uncomplicated; Z60.2 Problems related to living alone; Z90.49 Acquired absence of other specified parts of digestive tract; Z79.899 Other long term (current) drug therapy; Z79.84 Long term (current) use of oral hypoglycemic drugs; Z86.010 Personal history of colon polyps; Z85.828 Personal history of other malignant neoplasm of skin; Z87.01 Personal history of pneumonia (recurrent); Z87.891 Personal history of nicotine dependence; Z80.7 Family history of other malignant neoplasms of lymphoid, hematopoietic and related tissues; Z80.8 Family history of malignant neoplasm of other organs or systems; Z90.89 Acquired absence of other organs; Z98.890 Other specified postprocedural states
CPT/HCPCS: 36415; 74181; 76700; 80053; 80061; 81003; 82150; 83690; 84484; 85025; 87040; 93005; 96361; 96374; 96375; 96376; 99285

== ENCOUNTER 2019-03-23 12:25 | Emergency (ER) | payer OTHER ==
[2019-03-23 12:38] VITALS: RESP 18; TEMP 97.9
[2019-03-23] MEDS ORDERED: HYDROmorphone 0.5 MG/0.5 ML SYRINGE IVP STA ×2 (13:02→15:01)
[2019-03-23] MEDS ORDERED: ONDANSETRON 4 MG/2 ML VIAL IVP STA (13:02)
[2019-03-23] MEDS ORDERED: SODIUM CHLORIDE 0.9% 1,000 ML IV STA (13:02)
[2019-03-23 13:20] LABS: Basophils # (A) 0.1 k/uL (0-0.2); Basophils % (A) 1 %; Eosinophils # (A) 0.3 k/uL (0-0.7); Eosinophils % (A) 3 %; HGB 14.1 gm/dL (13.0-17.5); Lymphocytes # (A) 1.4 k/uL (1.0-4.8); Lymphocytes % (A) 14 %; MCHC 34.5 g/dL (31.0-37.0); Mean Platelet Volume 7.2; Monocytes # (A) 0.5 k/uL (0-1.0); Monocytes % (A) 5 %; Neutrophils # (A) 7.2 k/uL (1.3-7.7); Neutrophils % (A) 75 %; Platelet Count 240 k/uL (150-450); RBC 4.87 m/uL (4.30-5.90); RDW 12.8 % (11.5-15.5); WBC 9.6 k/uL (3.8-10.6)
[2019-03-23 13:43] LABS: ALT 92 U/L (21-72); AST 99 U/L (17-59); African American GFR (CKD) >90 (>60 ml/min/1.73 sqM); Albumin 4.3 g/dL (3.5-5.0); Alkaline Phosphatase 134 U/L (38-126); Amylase 57 U/L (30-110); Anion Gap 11 mmol/L; Blood Urea Nitrogen 16 mg/dL (9-20); Calcium 9.2 mg/dL (8.4-10.2); Carbon Dioxide 22 mmol/L (22-30); Chloride 106 mmol/L (98-107); Glucose 131 mg/dL (74-99); Potassium 4.1 mmol/L (3.5-5.1); Sodium 139 mmol/L (137-145); Total Bilirubin 0.5 mg/dL (0.2-1.3); Total Protein 7.2 g/dL (6.3-8.2)
--- NOTE | 2019-03-23 13:56 | XR ---
EXAMINATION TYPE: XR KUB DATE OF EXAM: 03/23/2019 COMPARISON: 10/13/2018 HISTORY: Pain TECHNIQUE: One view abdominal series FINDINGS: The osseous structures are intact. The bowel gas pattern is nonspecific. Lung bases are clear. Surgi isi clips in the right upper quadrant noted. Bowel gas pattern nonspecific with few prominent small b owel loops. Calcifications in the pelvis likely vascular. Correlate for previous hernia repair surger y. Arthropathy of the hips. IMPRESSION: 1. Nonspecific abdomen with a few scattered prominent small bowel loops could been the basis of an il eus or enteritis. Correlate clinically.
[2019-03-23 14:35] VITALS: BP 122/76; PULSE 60
[2019-03-23 14:45] LABS: Appearance,Urine Clear (Clear); Bilirubin,Urine Negative (Negative); Blood,Urine Negative (Negative); Color,Urine Yellow; Glucose,Urine (UA) Negative (Negative); Ketones,Urine Negative (Negative); Leukocyte Esterase,Urine Negative (Negative); Nitrite,Urine Negative (Negative); PH, Urine 5.5 (5.0-8.0); Protein,Urine Negative (Negative); Specific Gravity,Urine 1.025 (1.001-1.035); Urobilinogen,Urine <2.0 mg/dL (<2.0)
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
== END 2019-03-23 15:00 | disposition home or self-care (01) ==
LOC: EC 12:25
DX: K86.1 Other chronic pancreatitis (principal); R74.0 Nonspecific elevation of levels of transaminase and lactic acid dehydrogenase [LDH]; R74.8 Abnormal levels of other serum enzymes; E11.9 Type 2 diabetes mellitus without complications; Z87.891 Personal history of nicotine dependence; Z79.84 Long term (current) use of oral hypoglycemic drugs; Z79.899 Other long term (current) drug therapy; Z85.828 Personal history of other malignant neoplasm of skin; Z86.010 Personal history of colon polyps; Z90.49 Acquired absence of other specified parts of digestive tract; Z98.890 Other specified postprocedural states
CPT/HCPCS: 36415; 80053; 82150; 83690; 85025; 81003; 74018; 99284; 96374; 96375; 96376; 96361; J2405; J1170

== ENCOUNTER 2019-04-28 19:36 | Emergency (ER) | payer OTHER ==
[2019-04-28] MEDS ORDERED: HYDROmorphone 1 MG/ML 1 ML SYRINGE IVP STA ×2 (20:19→21:52)
[2019-04-28] MEDS ORDERED: ONDANSETRON 4 MG/2 ML VIAL IVP STA (20:19)
[2019-04-28] MEDS ORDERED: SODIUM CHLORIDE 0.9% 1,000 ML IV STA (20:19)
[2019-04-28] MEDS ORDERED: PANTOPRAZOLE 40 MG/10 ML VIAL IVP STA (20:19)
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
[2019-04-28 20:46] LABS: Basophils # (A) 0.1 k/uL (0-0.2); Basophils % (A) 1 %; Eosinophils # (A) 0.3 k/uL (0-0.7); Eosinophils % (A) 4 %; HGB 14.1 gm/dL (13.0-17.5); Lymphocytes # (A) 1.6 k/uL (1.0-4.8); Lymphocytes % (A) 18 %; MCH 29.7 pg (25.0-35.0); MCHC 34.3 g/dL (31.0-37.0); MCV 86.4 fL (80.0-100.0); Mean Platelet Volume 6.7; Monocytes # (A) 0.6 k/uL (0-1.0); Monocytes % (A) 6 %; Neutrophils # (A) 6.1 k/uL (1.3-7.7); Neutrophils % (A) 69 %; Platelet Count 251 k/uL (150-450); RBC 4.74 m/uL (4.30-5.90); RDW 12.5 % (11.5-15.5); WBC 8.8 k/uL (3.8-10.6)
[2019-04-28 20:58] LABS: ALT 155 U/L (21-72); AST 126 U/L (17-59); African American GFR (CKD) >90 (>60 ml/min/1.73 sqM); Albumin 4.3 g/dL (3.5-5.0); Alkaline Phosphatase 170 U/L (38-126); Amylase 46 U/L (30-110); Anion Gap 10 mmol/L; Blood Urea Nitrogen 13 mg/dL (9-20); Calcium 9.1 mg/dL (8.4-10.2); Carbon Dioxide 24 mmol/L (22-30); Chloride 102 mmol/L (98-107); Glucose 190 mg/dL (74-99); Potassium 4.7 mmol/L (3.5-5.1); Sodium 136 mmol/L (137-145); Total Bilirubin 0.5 mg/dL (0.2-1.3); Total Protein 7.3 g/dL (6.3-8.2)
--- NOTE | 2019-04-28 20:59 | XR ---
EXAMINATION TYPE: XR KUB DATE OF EXAM: 04/28/2019 COMPARISON: 03/23/2019 INDICATION: Abdomen pain TECHNIQUE: Single view abdomen upright view FINDINGS: Nonspecific bowel gas pattern is present. No mass effect is evident. Cholecystectomy clips are in the right upper quadrant. Psoas margins are normal. No organomegaly is present. IMPRESSION: 1. Nonspecific abdomen. 2. Findings have a somewhat normal more normal appearance than the comparison.
[2019-04-28 21:12] LABS: INR 0.9 (<1.2); Partial Thromboplastin Time 27.6 sec (22.0-30.0); Prothrombin Time 9.8 sec (9.0-12.0)
[2019-04-28 22:10] LABS: Appearance,Urine Clear (Clear); Bilirubin,Urine Negative (Negative); Blood,Urine Negative (Negative); Color,Urine Light Yellow; Glucose,Urine (UA) Negative (Negative); Ketones,Urine Negative (Negative); Leukocyte Esterase,Urine Negative (Negative); Nitrite,Urine Negative (Negative); Protein,Urine Negative (Negative); Urobilinogen,Urine <2.0 mg/dL (<2.0)
[2019-04-28 22:26] VITALS: BP 125/80; PULSE 63; RESP 18; TEMP 98
== END 2019-04-28 22:28 | disposition home or self-care (01) ==
LOC: EC 19:36
DX: K86.1 Other chronic pancreatitis (principal); E11.9 Type 2 diabetes mellitus without complications; I10 Essential (primary) hypertension; Z79.84 Long term (current) use of oral hypoglycemic drugs; Z79.899 Other long term (current) drug therapy; Z87.891 Personal history of nicotine dependence; Z85.828 Personal history of other malignant neoplasm of skin; Z90.49 Acquired absence of other specified parts of digestive tract; Z90.89 Acquired absence of other organs
CPT/HCPCS: 36415; 80053; 82150; 83690; 85025; 85610; 85730; 81003; 74018; 99284; 96374; 96375 ×2; 96376; 96361; J2405; J1170; C9113

== ENCOUNTER 2019-06-16 06:34 | Emergency (ER) | payer OTHER ==
[2019-06-16 06:44] VITALS: BP 166/68; PULSE 50; RESP 20; TEMP 97.5
[2019-06-16] MEDS ORDERED: PANTOPRAZOLE 40 MG/10 ML VIAL IVP STA (06:59)
[2019-06-16] MEDS ORDERED: MORPHINE SULFATE 4 MG/ML SYRINGE IV STA (06:59)
[2019-06-16] MEDS ORDERED: ONDANSETRON 4 MG/2 ML VIAL IVP STA (06:59)
[2019-06-16] MEDS ORDERED: SODIUM CHLORIDE 0.9% 1,000 ML IV STA ×2 (06:59)
[2019-06-16] MEDS ORDERED: KETOROLAC 30 MG/ML 1 ML VIAL IVP STA (06:59)
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
--- NOTE | 2019-06-16 07:44 | XR ---
EXAMINATION TYPE: XR KUB DATE OF EXAM: 06/16/2019 COMPARISON: 04/28/2019 HISTORY: Pain TECHNIQUE: Single supine KUB image of the abdomen is obtained FINDINGS: Small bowel demonstrates no evidence for dilatation or air fluid levels. Gas and fecal material is seen in non-distended colon. No convincing evidence for pneumoperitoneum. No unusual calcifications. The lung bases are clear. The osseous structures are intact. IMPRESSION: 1. Overall nonobstructive bowel gas pattern.
[2019-06-16 08:22] LABS: Basophils # (A) 0.1 k/uL (0-0.2); Basophils % (A) 0 %; Eosinophils # (A) 0.3 k/uL (0-0.7); Eosinophils % (A) 2 %; HCT 43.2 % (39.0-53.0); HGB 14.5 gm/dL (13.0-17.5); Lymphocytes # (A) 1.8 k/uL (1.0-4.8); Lymphocytes % (A) 15 %; MCH 29.4 pg (25.0-35.0); MCHC 33.5 g/dL (31.0-37.0); MCV 87.7 fL (80.0-100.0); Mean Platelet Volume 8.8; Monocytes # (A) 0.7 k/uL (0-1.0); Monocytes % (A) 5 %; Neutrophils # (A) 9.2 k/uL (1.3-7.7); Neutrophils % (A) 76 %; Platelet Count 222 k/uL (150-450); RBC 4.92 m/uL (4.30-5.90); RDW 12.9 % (11.5-15.5); WBC 12.1 k/uL (3.8-10.6)
[2019-06-16 08:28] LABS: ALT 162 U/L (4-49); AST 260 U/L (17-59); African American GFR (CKD) >90 (>60 ml/min/1.73 sqM); Albumin 3.7 g/dL (3.5-5.0); Alkaline Phosphatase 159 U/L (38-126); Amylase 39 U/L (30-110); Anion Gap 11 mmol/L; Blood Urea Nitrogen 15 mg/dL (9-20); Calcium 8.5 mg/dL (8.4-10.2); Carbon Dioxide 22 mmol/L (22-30); Chloride 107 mmol/L (98-107); Glucose 204 mg/dL (74-99); Non-African American GFR(CKD) >90 (>60 ml/min/1.73 sqM); Potassium 3.9 mmol/L (3.5-5.1); Sodium 140 mmol/L (137-145); Total Bilirubin 1.2 mg/dL (0.2-1.3); Total Protein 6.4 g/dL (6.3-8.2)
[2019-06-16 08:38] LABS: Partial Thromboplastin Time 26.2 sec (22.0-30.0); Prothrombin Time 10.4 sec (9.0-12.0)
[2019-06-16 09:03] LABS: Appearance,Urine Clear (Clear); Bilirubin,Urine Negative (Negative); Blood,Urine Negative (Negative); Color,Urine Yellow; Glucose,Urine (UA) Negative (Negative); Ketones,Urine Negative (Negative); Leukocyte Esterase,Urine Negative (Negative); Nitrite,Urine Negative (Negative); PH, Urine 5.5 (5.0-8.0); Protein,Urine Negative (Negative); Specific Gravity,Urine 1.027 (1.001-1.035)
== END 2019-06-16 09:56 | disposition home or self-care (01) ==
LOC: EC 06:34
DX: R74.0 Nonspecific elevation of levels of transaminase and lactic acid dehydrogenase [LDH] (principal); R10.812 Left upper quadrant abdominal tenderness; E11.9 Type 2 diabetes mellitus without complications; I10 Essential (primary) hypertension; Z79.84 Long term (current) use of oral hypoglycemic drugs; Z79.899 Other long term (current) drug therapy; Z85.828 Personal history of other malignant neoplasm of skin; Z87.891 Personal history of nicotine dependence
CPT/HCPCS: 36415; 93005; 80053; 82150; 83690; 85025; 85610; 85730; 81003; 74018; 99284; 96374; 96375 ×3; 96361 ×3; J2270; J2405; J1885; C9113

== ENCOUNTER 2019-07-05 19:38 | Inpatient (IN) | payer OTHER ==
[2019-07-05] MEDS ORDERED: MORPHINE SULFATE 4 MG/ML SYRINGE IV STA (20:43)
[2019-07-05] MEDS ORDERED: ONDANSETRON 4 MG/2 ML VIAL IVP STA (20:43)
[2019-07-05] MEDS ORDERED: PANTOPRAZOLE 40 MG/10 ML VIAL IVP STA (20:43)
[2019-07-05] MEDS ORDERED: SODIUM CHLORIDE 0.9% 1,000 ML IV STA ×2 (20:43→23:16)
[2019-07-05] MEDS ORDERED: SODIUM CHLORIDE 0.9% 500 ML 500 ML IV STA (20:43)
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
[2019-07-05 21:18] LABS: Basophils # (A) 0.1 k/uL (0-0.2); Basophils % (A) 1 %; Eosinophils # (A) 0.3 k/uL (0-0.7); Eosinophils % (A) 3 %; HCT 40.5 % (39.0-53.0); HGB 13.2 gm/dL (13.0-17.5); Lymphocytes # (A) 1.9 k/uL (1.0-4.8); Lymphocytes % (A) 17 %; MCH 28.4 pg (25.0-35.0); MCHC 32.5 g/dL (31.0-37.0); MCV 87.5 fL (80.0-100.0); Monocytes # (A) 0.5 k/uL (0-1.0); Monocytes % (A) 5 %; Neutrophils # (A) 8.3 k/uL (1.3-7.7); Neutrophils % (A) 74 %; Platelet Count 216 k/uL (150-450); RBC 4.63 m/uL (4.30-5.90); RDW 12.4 % (11.5-15.5); WBC 11.3 k/uL (3.8-10.6)
[2019-07-05] MEDS: SODIUM CHLORIDE 0.9% 1,000 ML IV STA (21:21)
[2019-07-05 21:27] LABS: ALT 53 U/L (4-49); AST 90 U/L (17-59); African American GFR (CKD) >90 (>60 ml/min/1.73 sqM); Alkaline Phosphatase 156 U/L (38-126); Amylase 32 U/L (30-110); Anion Gap 8 mmol/L; Blood Urea Nitrogen 12 mg/dL (9-20); Calcium 8.9 mg/dL (8.4-10.2); Carbon Dioxide 26 mmol/L (22-30); Chloride 104 mmol/L (98-107); Glucose 259 mg/dL (74-99); Non-African American GFR(CKD) >90 (>60 ml/min/1.73 sqM); Potassium 4.1 mmol/L (3.5-5.1); Sodium 138 mmol/L (137-145); Total Bilirubin 0.6 mg/dL (0.2-1.3); Total Protein 6.9 g/dL (6.3-8.2)
[2019-07-05] MEDS ORDERED: KETOROLAC 30 MG/ML 1 ML VIAL IVP STA (21:49)
--- NOTE | 2019-07-05 22:24 | CT ---
EXAMINATION TYPE: CT abdomen pelvis w con DATE OF EXAM: 07/05/2019 COMPARISON: 01/18/2018 HISTORY: abdominal pain, hx of pancreatitis CT DLP: 1225 mGycm Automated exposure control for dose reduction was used. CONTRAST: Performed with IV Contrast, patient injected with 100 mL of Isovue 300. Lung bases are clear. There is no pleural effusion. Heart size is normal. Liver shows no focal defect. Spleen is intact. There is fat stranding around th e body and head of the pancreas with dilated pancreatic duct. Pancreatic duct measures 11 mm. The int rahepatic bile ducts are not dilated. There is no adrenal mass. Kidneys show satisfactory contrast opacification. There is no hydronephrosi s. There is no retroperitoneal adenopathy. Ureters are not dilated. Bladder distends smoothly. There is no inguinal hernia. There is no free fluid in the pelvis. There is no mesenteric edema. There is no ascites or free air. There is no sign of a bowel obstructio n. Appendix not definitely seen. There is no sign of thickened appendix. There is normal alignment of the lumbar vertebra. There is 25% wedging of L2 vertebra that is old. Bony pelvis is intact. IMPRESSION: Inflammatory changes around the pancreas consistent with pancreatitis that appears worse than last ex am. No drainable fluid collection.
[2019-07-05] MEDS ORDERED: LORazepam 2 MG/ML INJ IV PRN ×3 (23:20)
[2019-07-05] MEDS ORDERED: THIAMINE 100 MG/ML 2 ML VIAL IM STA (23:20)
[2019-07-05] MEDS: THIAMINE 100 MG TAB PO SCH (23:49)
[2019-07-06] MEDS: SODIUM CHLORIDE 0.9% 1,000 ML IV STA (01:17)
[2019-07-06] MEDS: ONDANSETRON 4 MG/2 ML VIAL IVP PRN ×2 (03:19→10:05)
[2019-07-06] MEDS: MORPHINE SULFATE 4 MG/ML SYRINGE IVP PRN ×2 (03:20→07:44)
[2019-07-06] MEDS: THIAMINE 100 MG TAB PO SCH ×2 (07:44→17:56)
[2019-07-06] MEDS ORDERED: PANTOPRAZOLE 40 MG/10 ML VIAL IVP SCH (09:00)
[2019-07-06] MEDS ORDERED: NON FORMULARY DRUG (Omeprazole [Omeprazole] 40 MG) PO SCH (11:15)
[2019-07-06] MEDS ORDERED: INSULIN DETEMIR (LEVEMIR) 100 UNIT/ML SYR SQ SCH (12:00)
[2019-07-06] MEDS: INSULIN ASPART (NovoLOG) 100 UNIT/ML VIAL SQ SCH ×3 (12:52→21:17)
[2019-07-06] MEDS: ENOXAPARIN 40 MG/0.4 ML SYRINGE SQ SCH (12:52)
[2019-07-06 12:53] LABS: Glucose,Whole Blood 129 mg/dL (75-99)
[2019-07-06 12:53] LABS: Glucose,Whole Blood 135 mg/dL (75-99)
[2019-07-06] MEDS: LISINOPRIL 5 MG TAB PO SCH (12:56)
[2019-07-06 13:09] VITALS: BMI 29.7
[2019-07-06 17:09] LABS: Glucose,Whole Blood 117 mg/dL (75-99)
[2019-07-06 21:04] LABS: Glucose,Whole Blood 95 mg/dL (75-99)
[2019-07-06] MEDS: SODIUM CHLORIDE 0.9% 1,000 ML IV SCH (21:17)
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
[2019-07-07] MEDS: SODIUM CHLORIDE 0.9% 1,000 ML IV SCH ×2 (00:24→09:21)
[2019-07-07] MEDS ORDERED: INSULIN DETEMIR (LEVEMIR) 100 UNIT/ML SYR SQ SCH ×2 (07:00)
[2019-07-07 07:03] LABS: Glucose,Whole Blood 95 mg/dL (75-99)
[2019-07-07] MEDS ORDERED: PANTOPRAZOLE 40 MG TABLET PO SCH (09:00)
[2019-07-07] MEDS: INSULIN ASPART (NovoLOG) 100 UNIT/ML VIAL SQ SCH ×2 (09:20→13:09)
[2019-07-07] MEDS: ENOXAPARIN 40 MG/0.4 ML SYRINGE SQ SCH (09:21)
[2019-07-07] MEDS: LISINOPRIL 5 MG TAB PO SCH (09:21)
[2019-07-07] MEDS: THIAMINE 100 MG TAB PO SCH (09:21)
[2019-07-07 11:45] LABS: Glucose,Whole Blood 199 mg/dL (75-99)
[2019-07-07 12:01] VITALS: BP 146/77; PULSE 53; RESP 17; TEMP 97.3
--- NOTE | 2019-07-13 23:44 | P.DS ---
Providers Date of admission: 07/05/19 23:17 Expected date of discharge: 07/07/19 Attending physician: Saravanan Astorga Primary care physician: Dionicio Ribera [facility] Course: Chief Complaint: Epigastric pain Hospital course: This is a 63-year-old patient of Dr. Dionicio Ribera. Chronic stable medical conditions include COPD, diabetes, hypertension, gout. Patient's had a few bouts of pancreatitis before. Was drinking significant alcohol the past. Pulses 2018. Patient last visit was around [place] of the ER for epigastric pain. Yesterday patient started of with worsening epigastric burning sensation going to the back. Patient will of nausea. No fever no chills. Admitted for the same. Computed tomography scan the ER did show inflammation of the pancreas. Enzymes were negative. Admitted for the same. Made nothing by mouth. Given IV fluids. Responded well. Diet gradually advanced. Feeling better. Pain much improved. Up and about. Discussed the patient. Physical examination: VITAL SIGNS: 97.3, 53, 17, 146/77, 97% on room air GENERAL: Sitting up, comfortable. EYES: Pupils equal. Conjunctiva normal. HEENT: External appearance of nose and ears normal, oral cavity grossly normal. NECK: JVD not raised; masses not palpable. HEART: First and second heart sounds are normal; no edema. LUNGS: Respiratory rate normal; clear to auscultation. ABDOMEN: Soft, no tenderness, no guarding or rigidity, liver spleen not palpable, no masses palpable. PSYCH: Alert and oriented x3; mood and affect normal. INVESTIGATIONS, reviewed in the clinical context: White count 10.3 hemoglobin 13.2 platelets 216 potassium 4.1 bun 12 creatinine 0.59 AST 98 5053 Amylase 32 lipase 89 Accu-Cheks 129, 117, 95 Computed tomography scan of the abdomen and pelvis-fat stranding around the body and head of the pancreas and dilated pancreatic duct. Assessment: -Acute on chronic pancreatitis recurrent in a patient who previously did alcohol. No rising enzyme given previous multiple episodes. -Diabetes mellitus type 2 -COPD in an ex-smoker -Essential hypertension - Disposition: Home Plan - Discharge Summary Discharge Rx Participant: No New Discharge Prescriptions: Continue Omeprazole 40 mg PO DAILY Lipase/Protease/Amylase [[place] Dr 36,000 Units Capsule] 72,000 unit PO TID- W/MEALS Hydrocodone/Acetaminophen [[place] 10-325] 1 tab PO QID PRN PRN Reason: pain Lisinopril [Zestril] 5 mg PO DAILY Insulin Glargine,Hum.rec.anlog [Basaglar Kwikpen U-100] 14 unit SQ DAILY Discharge Medication List Omeprazole 40 mg PO DAILY 01/02/18 [History] Lipase/Protease/Amylase [Lokesh Diaz 36,000 Units Capsule] 72,000 unit PO TID- W/MEALS 10/10/18 [History] Hydrocodone/Acetaminophen [[place] 10-325] 1 tab PO QID PRN 10/20/18 [History] Insulin Glargine,Hum.rec.anlog [Basaglar Kwikpen U-100] 14 unit SQ DAILY 07/05/19 [History] Lisinopril [Zestril] 5 mg PO DAILY 07/05/19 [History] Follow up Appointment(s)/Referral(s): Dionicio Ribera MD [Primary Care Provider] - 07/09/19 10:45 am Patient Instructions/Handouts: Pancreatitis (DC), Low Fat Diet (DC), Full Liquid Diet (DC) Activity/Diet/Wound Care/Special Instructions: Full liquid diet/low fat advance as tolerated as discussed Discharge Disposition: HOME SELF-CARE
== END 2019-07-07 15:35 | disposition home or self-care (01) | DRG 440 ==
LOC: EC 19:38 → 5NMEDONC 23:17
PROVIDERS: ADMIT Hospitalist; ATTEND Hospitalist
DX: K85.90 Acute pancreatitis without necrosis or infection, unspecified (principal); K86.1 Other chronic pancreatitis; K86.81 Exocrine pancreatic insufficiency; J44.9 Chronic obstructive pulmonary disease, unspecified; I10 Essential (primary) hypertension; E66.9 Obesity, unspecified; E11.9 Type 2 diabetes mellitus without complications; Z68.29 Body mass index [BMI] 29.0-29.9, adult; Z71.3 Dietary counseling and surveillance; Z79.899 Other long term (current) drug therapy; Z79.4 Long term (current) use of insulin; Z87.891 Personal history of nicotine dependence; Z85.828 Personal history of other malignant neoplasm of skin; Z87.19 Personal history of other diseases of the digestive system; Z90.49 Acquired absence of other specified parts of digestive tract; Z87.39 Personal history of other diseases of the musculoskeletal system and connective tissue; Z98.890 Other specified postprocedural states; Z87.81 Personal history of (healed) traumatic fracture; Z86.010 Personal history of colon polyps; Z87.01 Personal history of pneumonia (recurrent); Z80.7 Family history of other malignant neoplasms of lymphoid, hematopoietic and related tissues; Z80.8 Family history of malignant neoplasm of other organs or systems
CPT/HCPCS: 36415; 74177; 80053; 82150; 83690; 85025; 96361; 96372; 96374; 96375; 99285

== ENCOUNTER → 2019-07-13 | Outpatient (CLI) | payer OTHER ==
--- NOTE | 2019-08-12 13:01 | ECHOF ---
Referral Reason:R01.1 heart murmur MEASUREMENTS -------- HEIGHT: 172.7 cm WEIGHT: 81.6 kg BP: RVIDd: 4.3 cm (< 3.3) IVSd: 0.9 cm (0.6 - 1.1) LVIDd: 5.2 cm (3.9 - 5.3) LVPWd: 1.1 cm (0.6 - 1.1) IVSs: 1.5 cm LVIDs: 3.9 cm LVPWs: 1.2 cm LA Diam: 4.2 cm (2.7 - 3.8) LAESV Index (A-L): 38.44 ml/m Ao Diam: 3.3 cm (2.0 - 3.7) AV Cusp: 2.4 cm (1.5 - 2.6) LA Diam: 4.4 cm (2.7 - 3.8) MV EXCURSION: 20.130 mm (> 18.000) MV EF SLOPE: 70 mm/s (70 - 150) EPSS: 0.7 cm MV E Castro: 0.53 m/s MV DecT: 257 ms MV A Castro: 0.74 m/s MV E/A Ratio: 0.72 RAP: 5.00 mmHg RVSP: 17.37 mmHg FINDINGS -------- Sinus rhythm. This was a technically good study. LV size, wall thickness and systolic function are normal, with an EF greater than 55%. The diastoli c filling pattern is normal for the age of the patient 10.70. The right ventricle is normal in size. The left atrium is moderately dilated. LA is moderately dilated 34-39 ml/m2 The right atrial size is normal. There is mild aortic valve sclerosis. There is no evidence of aortic regurgitation. Mild mitral annular calcification present. Mild mitral regurgitation is present. Mild tricuspid regurgitation present. Right ventricular systolic pressure is normal at < 35 mmHg. There is no evidence of pulmonary hypertension. There is no pulmonic regurgitation present. The aortic root size is normal. Echo free space indicative of a pericardial fat pad. CONCLUSIONS -------- 1. Sinus rhythm. 2. This was a technically good study. 3. LV size, wall thickness and systolic function are normal, with an EF greater than 55%. 4. The diastolic filling pattern is normal for the age of the patient 10.70 5. The right ventricle is normal in size. 6. The left atrium is moderately dilated. 7. LA is moderately dilated 34-39 ml/m2 8. The right atrial size is normal. 9. There is mild aortic valve sclerosis. 10. Mild mitral annular calcification present. 11. Mild mitral regurgitation is present. 12. Mild tricuspid regurgitation present. 13. Right ventricular systolic pressure is normal at < 35 mmHg. 14. There is no evidence of pulmonary hypertension. 15. There is no pulmonic regurgitation present. 16. The aortic root size is normal. 17. Echo free space indicative of a pericardial fat pad. TUNNEL KILN OPERATOR: Kaye Salmeron RDCS
== END ==
LOC: RADECHMAIN 08:04
PROVIDERS: ATTEND Family Medicine
DX: R01.1 Cardiac murmur, unspecified (principal)
CPT/HCPCS: 93306

== ENCOUNTER 2019-07-16 20:28 | Emergency (ER) | payer OTHER ==
[2019-07-16] MEDS ORDERED: ONDANSETRON 4 MG/2 ML VIAL IVP STA (21:10)
[2019-07-16] MEDS ORDERED: KETOROLAC 30 MG/ML 1 ML VIAL IVP STA (21:10)
[2019-07-16] MEDS ORDERED: SODIUM CHLORIDE 0.9% 1,000 ML IV STA (21:10)
[2019-07-16] MEDS ORDERED: MORPHINE SULFATE 4 MG/ML SYRINGE IV STA (21:10)
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
[2019-07-16 22:00] LABS: Appearance,Urine Clear (Clear); Bilirubin,Urine Negative (Negative); Blood,Urine Negative (Negative); Color,Urine Yellow; Glucose,Urine (UA) 4+ (Negative); Ketones,Urine Trace (Negative); Leukocyte Esterase,Urine Negative (Negative); Nitrite,Urine Negative (Negative); Protein,Urine Negative (Negative); Specific Gravity,Urine 1.036 (1.001-1.035); Urobilinogen,Urine <2.0 mg/dL (<2.0)
[2019-07-16 22:05] LABS: Basophils # (A) 0.1 k/uL (0-0.2); Basophils % (A) 1 %; Eosinophils # (A) 0.3 k/uL (0-0.7); Eosinophils % (A) 3 %; HCT 39.4 % (39.0-53.0); HGB 12.8 gm/dL (13.0-17.5); Lymphocytes # (A) 1.9 k/uL (1.0-4.8); Lymphocytes % (A) 21 %; MCH 28.4 pg (25.0-35.0); MCHC 32.4 g/dL (31.0-37.0); MCV 87.5 fL (80.0-100.0); Mean Platelet Volume 8.8; Monocytes # (A) 0.6 k/uL (0-1.0); Monocytes % (A) 7 %; Neutrophils % (A) 67 %; Platelet Count 251 k/uL (150-450); RDW 12.5 % (11.5-15.5)
[2019-07-16 22:13] LABS: ALT 51 U/L (4-49); AST 18 U/L (17-59); African American GFR (CKD) >90 (>60 ml/min/1.73 sqM); Albumin 3.7 g/dL (3.5-5.0); Alkaline Phosphatase 158 U/L (38-126); Amylase <30 U/L (30-110); Anion Gap 8 mmol/L; Blood Urea Nitrogen 22 mg/dL (9-20); Calcium 8.7 mg/dL (8.4-10.2); Carbon Dioxide 25 mmol/L (22-30); Chloride 103 mmol/L (98-107); Glucose 315 mg/dL (74-99); Non-African American GFR(CKD) >90 (>60 ml/min/1.73 sqM); Potassium 4.2 mmol/L (3.5-5.1); Sodium 136 mmol/L (137-145); Total Bilirubin 0.4 mg/dL (0.2-1.3); Total Protein 6.5 g/dL (6.3-8.2)
[2019-07-16] MEDS ORDERED: INSULIN REGULAR 100 UNIT/ML VIAL SQ STA (22:28)
[2019-07-16] MEDS ORDERED: SODIUM CHLORIDE 0.9% 1,000 ML IV ONE ×2 (22:28→22:31)
[2019-07-17 00:14] VITALS: BP 143/82; PULSE 54; RESP 17; TEMP 97.5
== END 2019-07-17 00:15 | disposition home or self-care (01) ==
LOC: EC 20:28
DX: K85.90 Acute pancreatitis without necrosis or infection, unspecified (principal); E11.65 Type 2 diabetes mellitus with hyperglycemia; I10 Essential (primary) hypertension; Z79.4 Long term (current) use of insulin; Z79.899 Other long term (current) drug therapy; Z87.891 Personal history of nicotine dependence; Z85.828 Personal history of other malignant neoplasm of skin
CPT/HCPCS: 36415; 80053; 82150; 83605; 83690; 85025; 81003; 99284; 96374; 96375 ×2; 96361 ×3; J2270; J2405; J1885

== ENCOUNTER 2019-07-17 11:48 | Emergency (ER) | payer OTHER ==
[2019-07-17 11:59] VITALS: RESP 18; TEMP 97.6
[2019-07-17] MEDS ORDERED: SODIUM CHLORIDE 0.9% 1,000 ML IV STA (12:26)
[2019-07-17] MEDS ORDERED: HYDROmorphone 1 MG/ML 1 ML SYRINGE IVP STA (12:26)
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
[2019-07-17 13:22] LABS: Appearance,Urine Clear (Clear); Bilirubin,Urine Negative (Negative); Blood,Urine Negative (Negative); Color,Urine Colorless; Glucose,Urine (UA) Negative (Negative); Ketones,Urine Negative (Negative); Leukocyte Esterase,Urine Negative (Negative); Nitrite,Urine Negative (Negative); PH, Urine 6.5 (5.0-8.0); Protein,Urine Negative (Negative); Specific Gravity,Urine 1.002 (1.001-1.035); Urobilinogen,Urine <2.0 mg/dL (<2.0)
[2019-07-17 13:26] LABS: Basophils # (A) 0.1 k/uL (0-0.2); Basophils % (A) 1 %; Eosinophils # (A) 0.3 k/uL (0-0.7); Eosinophils % (A) 3 %; HCT 38.3 % (39.0-53.0); HGB 12.4 gm/dL (13.0-17.5); Lymphocytes # (A) 1.2 k/uL (1.0-4.8); Lymphocytes % (A) 14 %; MCH 28.1 pg (25.0-35.0); MCHC 32.4 g/dL (31.0-37.0); MCV 86.8 fL (80.0-100.0); Mean Platelet Volume 9.7; Monocytes # (A) 0.4 k/uL (0-1.0); Monocytes % (A) 5 %; Neutrophils # (A) 6.1 k/uL (1.3-7.7); Neutrophils % (A) 75 %; Platelet Count 242 k/uL (150-450); RBC 4.41 m/uL (4.30-5.90); RDW 12.3 % (11.5-15.5); WBC 8.2 k/uL (3.8-10.6)
--- NOTE | 2019-07-17 13:44 | XR ---
EXAMINATION TYPE: XR KUB , 2 VIEWS DATE OF EXAM ORDERED: 07/17/2019 HISTORY: abdominal pain. COMPARISON: Previous study dated 06/16/2019. FINDINGS: Lung bases are clear. Within the abdomen, the gallbladder is been removed. The abdominal gas pattern is normal. There is no evidence of obstruction or free air. There are stable phleboliths within the pelvis. IMPRESSION: NO ACUTE INTRA-ABDOMINAL ABNORMALITY.
[2019-07-17 14:28] LABS: ALT 150 U/L (4-49); AST 93 U/L (17-59); African American GFR (CKD) >90 (>60 ml/min/1.73 sqM); Albumin 3.2 g/dL (3.5-5.0); Alkaline Phosphatase 173 U/L (38-126); Anion Gap 5 mmol/L; Blood Urea Nitrogen 10 mg/dL (9-20); Calcium 8.1 mg/dL (8.4-10.2); Carbon Dioxide 26 mmol/L (22-30); Chloride 109 mmol/L (98-107); Glucose 107 mg/dL (74-99); Non-African American GFR(CKD) >90 (>60 ml/min/1.73 sqM); Potassium 3.9 mmol/L (3.5-5.1); Sodium 140 mmol/L (137-145); Total Bilirubin 0.6 mg/dL (0.2-1.3); Total Protein 5.8 g/dL (6.3-8.2)
[2019-07-17 15:19] LABS: Amylase <30 U/L (30-110)
[2019-07-17] MEDS ORDERED: ACET/COD 300 MG/30 MG STARTER PACK 6 TAB BTL PO STA (15:38)
[2019-07-17] MEDS ORDERED: HYDROmorphone 0.5 MG/0.5 ML SYRINGE IVP STA (15:42)
[2019-07-17 16:06] VITALS: BP 162/89; PULSE 56
== END 2019-07-17 16:11 | disposition home or self-care (01) ==
LOC: EC 11:48
DX: R10.13 Epigastric pain (principal); G89.29 Other chronic pain; R74.0 Nonspecific elevation of levels of transaminase and lactic acid dehydrogenase [LDH]; E11.9 Type 2 diabetes mellitus without complications; I10 Essential (primary) hypertension; Z85.828 Personal history of other malignant neoplasm of skin; Z86.010 Personal history of colon polyps; Z90.49 Acquired absence of other specified parts of digestive tract; Z87.19 Personal history of other diseases of the digestive system; Z87.891 Personal history of nicotine dependence; Z79.4 Long term (current) use of insulin; Z79.899 Other long term (current) drug therapy
CPT/HCPCS: 99284; 96374; 96376; 96361; 36415; 80053; 82150; 83690; 85025; 81003; 74018; J1170 ×2

== ENCOUNTER 2019-07-20 14:57 | Emergency (ER) | payer OTHER ==
[2019-07-20 15:42] VITALS: BP 132/78; PULSE 63; RESP 18; TEMP 97.9
[2019-07-20] MEDS ORDERED: ONDANSETRON 4 MG/2 ML VIAL IVP STA (16:52)
[2019-07-20] MEDS ORDERED: HYDROmorphone 0.5 MG/0.5 ML SYRINGE IVP STA (16:52)
[2019-07-20] MEDS ORDERED: SODIUM CHLORIDE 0.9% 1,000 ML IV STA (16:52)
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
[2019-07-20 18:45] LABS: Appearance,Urine Clear (Clear); Bilirubin,Urine Negative (Negative); Blood,Urine Negative (Negative); Color,Urine Light Yellow; Glucose,Urine (UA) Trace (Negative); Ketones,Urine Negative (Negative); Leukocyte Esterase,Urine Negative (Negative); Nitrite,Urine Negative (Negative); Protein,Urine Negative (Negative); Specific Gravity,Urine 1.007 (1.001-1.035)
[2019-07-20 19:09] LABS: Basophils # (A) 0.1 k/uL (0-0.2); Basophils % (A) 1 %; Eosinophils # (A) 0.3 k/uL (0-0.7); Eosinophils % (A) 2 %; HCT 39.8 % (39.0-53.0); HGB 12.8 gm/dL (13.0-17.5); Lymphocytes # (A) 1.7 k/uL (1.0-4.8); Lymphocytes % (A) 15 %; MCH 28.3 pg (25.0-35.0); MCHC 32.2 g/dL (31.0-37.0); MCV 87.7 fL (80.0-100.0); Monocytes # (A) 0.5 k/uL (0-1.0); Monocytes % (A) 5 %; Neutrophils # (A) 8.4 k/uL (1.3-7.7); Neutrophils % (A) 76 %; Platelet Count 267 k/uL (150-450); RBC 4.54 m/uL (4.30-5.90); RDW 12.3 % (11.5-15.5); WBC 11.2 k/uL (3.8-10.6)
[2019-07-20] MEDS ORDERED: HYDROmorphone 1 MG/ML 1 ML SYRINGE IVP STA (19:13)
[2019-07-20 19:28] LABS: ALT 136 U/L (4-49); AST 152 U/L (17-59); African American GFR (CKD) >90 (>60 ml/min/1.73 sqM); Albumin 3.9 g/dL (3.5-5.0); Alkaline Phosphatase 229 U/L (38-126); Amylase <30 U/L (30-110); Anion Gap 7 mmol/L; Blood Urea Nitrogen 8 mg/dL (9-20); Calcium 8.6 mg/dL (8.4-10.2); Carbon Dioxide 29 mmol/L (22-30); Chloride 103 mmol/L (98-107); Glucose 176 mg/dL (74-99); Non-African American GFR(CKD) >90 (>60 ml/min/1.73 sqM); Potassium 3.8 mmol/L (3.5-5.1); Sodium 139 mmol/L (137-145); Total Bilirubin 0.5 mg/dL (0.2-1.3); Total Protein 6.8 g/dL (6.3-8.2)
== END 2019-07-20 19:50 | disposition home or self-care (01) ==
LOC: EC 14:57
DX: R74.0 Nonspecific elevation of levels of transaminase and lactic acid dehydrogenase [LDH] (principal); R10.13 Epigastric pain; R11.0 Nausea; R00.1 Bradycardia, unspecified; E11.9 Type 2 diabetes mellitus without complications; I10 Essential (primary) hypertension; Z86.010 Personal history of colon polyps; Z85.828 Personal history of other malignant neoplasm of skin; Z90.49 Acquired absence of other specified parts of digestive tract; Z87.891 Personal history of nicotine dependence; Z79.4 Long term (current) use of insulin; Z79.899 Other long term (current) drug therapy
CPT/HCPCS: 99284; 96374; 96375; 96376; 96361; 36415; 80053; 82150; 83690; 85025; 81003; J2405; J1170 ×2

== ENCOUNTER 2019-07-30 15:00 | Emergency (ER) | payer OTHER ==
[2019-07-30] MEDS ORDERED: KETOROLAC 30 MG/ML 1 ML VIAL IVP STA (15:25)
[2019-07-30] MEDS ORDERED: PANTOPRAZOLE 40 MG/10 ML VIAL IVP STA (15:25)
[2019-07-30] MEDS ORDERED: SODIUM CHLORIDE 0.9% 1,000 ML IV STA ×2 (15:25)
[2019-07-30] MEDS ORDERED: HYDROmorphone 1 MG/ML 1 ML SYRINGE IVP STA (15:25)
[2019-07-30] MEDS ORDERED: ONDANSETRON 4 MG/2 ML VIAL IVP STA (15:26)
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
[2019-07-30 16:11] LABS: Appearance,Urine Clear (Clear); Bilirubin,Urine Negative (Negative); Blood,Urine Negative (Negative); Color,Urine Yellow; Glucose,Urine (UA) 4+ (Negative); Ketones,Urine Negative (Negative); Leukocyte Esterase,Urine Negative (Negative); Nitrite,Urine Negative (Negative); PH, Urine 6.5 (5.0-8.0); Protein,Urine Trace (Negative); Specific Gravity,Urine 1.027 (1.001-1.035); Urobilinogen,Urine <2.0 mg/dL (<2.0)
--- NOTE | 2019-07-30 16:17 | XR ---
EXAMINATION TYPE: XR KUB DATE OF EXAM: 07/30/2019 COMPARISON: NONE HISTORY: Pain TECHNIQUE: One view abdominal series FINDINGS: The osseous structures are intact. The bowel gas pattern is nonspecific. There is surgical change wi th a metallic stents likely biliary. Pneumobilia likely related to the stent. Is a second stent which goes across the right paraspinal line in the left upper quadrant of indeterminate etiology. Arthropa thy of the shoulders. Calcifications in the pelvis likely vascular. There are few prominent small bow el loops. Upper atrophic and degenerative change of the spine. IMPRESSION: 1. Pneumobilia. Likely secondary to biliary stent. Second stent in the abdomen is also noted and may be within the pancreatic duct. Correlate with surgical history. 2. Prominent small bowel loops: Correlate for ileus or enteritis. Partial obstruction not entirely ex cluded.
[2019-07-30 16:18] LABS: Partial Thromboplastin Time 27.3 sec (22.0-30.0); Prothrombin Time 10.8 sec (9.0-12.0)
[2019-07-30 16:22] LABS: ALT 68 U/L (4-49); AST 94 U/L (17-59); African American GFR (CKD) >90 (>60 ml/min/1.73 sqM); Albumin 3.8 g/dL (3.5-5.0); Alkaline Phosphatase 249 U/L (38-126); Amylase <30 U/L (30-110); Anion Gap 10 mmol/L; Blood Urea Nitrogen 10 mg/dL (9-20); Calcium 8.7 mg/dL (8.4-10.2); Carbon Dioxide 27 mmol/L (22-30); Chloride 97 mmol/L (98-107); Glucose 343 mg/dL (74-99); Non-African American GFR(CKD) >90 (>60 ml/min/1.73 sqM); Sodium 134 mmol/L (137-145); Total Bilirubin 0.5 mg/dL (0.2-1.3); Total Protein 6.6 g/dL (6.3-8.2)
[2019-07-30 16:37] LABS: HCT 42.2 % (39.0-53.0); HGB 13.9 gm/dL (13.0-17.5); MCH 28.8 pg (25.0-35.0); MCHC 32.8 g/dL (31.0-37.0); MCV 87.6 fL (80.0-100.0); Mean Platelet Volume 9.3; Platelet Count 301 k/uL (150-450); RBC 4.82 m/uL (4.30-5.90); RDW 12.4 % (11.5-15.5); WBC 4.5 k/uL (3.8-10.6)
[2019-07-30 17:07] LABS: Band Neutrophils % 1 %; Eosinophils # (M) 0.09 k/uL (0-0.7); Lymphocytes # (M) 0.86 k/uL (1.0-4.8); Monocytes # (M) 0.36 k/uL (0-1.0); Neutrophils % (M) 70 %; Nucleated Red Blood Cells 0 /100 WBC (0-0); Total Cells Counted 100
--- NOTE | 2019-07-30 18:18 | US ---
EXAMINATION TYPE: US liver DATE OF EXAM: 07/30/2019 COMPARISON: US and multiple CT's. CLINICAL HISTORY: CBD stent. EXAM MEASUREMENTS: Liver Length: 15.6 cm Gallbladder Wall: Surgically absent cm CBD: 0.8 cm Right Kidney: 12.3 x 4.9 x 5.5 cm Pancreas: appears heterogeneous, can see stent at portal confluence . Liver: wnl Gallbladder: Surgically absent CBD: wnl Right Kidney: No hydronephrosis or masses seen CBD not well seen, there is no biliary dilatation. IMPRESSION: There is cholecystectomy. Common bile duct is 8 mm. Stent appears in the common bile duct . Intrahepatic bile ducts are not dilated. No ascites.
[2019-07-30 18:23] VITALS: RESP 17
[2019-07-30 20:29] VITALS: BP 122/75; PULSE 52; TEMP 98
== END 2019-07-30 19:43 | disposition home or self-care (01) ==
LOC: EC 15:00
DX: K86.1 Other chronic pancreatitis (principal); E11.9 Type 2 diabetes mellitus without complications; I10 Essential (primary) hypertension; Z79.4 Long term (current) use of insulin; Z79.899 Other long term (current) drug therapy; Z90.49 Acquired absence of other specified parts of digestive tract; Z90.89 Acquired absence of other organs; Z87.891 Personal history of nicotine dependence
CPT/HCPCS: 36415; 80053; 82150; 83605; 83690; 85025; 85610; 85730; 81003; 74018; 76705; 99285; 96374; 96375 ×3; 96361 ×4; J2405; J1885; J1170; C9113

== ENCOUNTER → 2019-08-17 | Outpatient (CLI) | payer OTHER ==
[2019-08-17 14:13] VITALS: BP 139/82; PULSE 72; RESP 20
--- NOTE | 2019-08-17 14:36 | P.PN ---
Subjective Progress Note Date: 08/17/19 This is a 63-year-old gentleman with history of chronic pancreatitis with frequent behavioral episodes. The patient had multiple stents placed in the. He system previously at [facility]. The patient comes to the ER when his pain is severe. He used to be on Putnam 10 mg 4 times a day if needed for his pain however his new primary care physician does not feel comfortable prescribing opioids. The patient failed to respond to selective plexus block previously however that block was done when he was not in pain. The patient lost about 90 pounds of his weight over the last 6 months because of multiple bouts of pancreatitis. During this exacerbation of his abdominal pain is somewhat it goes down and he gets nauseated with occasional vomiting. The patient denies any history of alcoholism however he admits to drinking 3 beers on average every day. Patient denies new-onset weakness, bowel/bladder incontinence, or any other signs or symptoms of cauda equina syndrome. There are no signs of acute intoxication, and no indications of medication diversion or overuse. In addition to above, 13-point review of systems is also negative for chest pain, shortness of breath, changes in vision, changes in hearing, new onset weakness, abdominal pain, diarrhea, extreme fatigue, malaise, fever, skin changes, homicidal or suicidal ideation, or bowel or bladder incontinence. Vital Signs: Reviewed in EMR Gen: AAOx3, NAD HEENT: PERRLA,hearing grossly normal Pulm: resp unlabored Heart: Regular Neck: supple, trachea midline Neuro: CN II-XII grossly intact, Imaging: Reviewed in EMR/chart Assessment: Chronic pancreatitis Plan: 1. Explanation: Opioid and psychological risk scores were reviewed. Diagnoses, prognoses, and multiple treatment options including but not limited to physical therapy, interventional therapies, adjuvant medical therapies, narcotic medication therapies, and surgery were discussed with the patient and all questions were answered to the patient's satisfaction. 2. Opioid agreement: Signed with the patient and the patient is warned not to use opioids while driving or before driving and not to combine opioids with benzodiazepines or alcohol. 3. Counseling: The patient was counseled extensively on SMOKING CESSATION, BODY MASS INDEX, EXERCISE. Specifically, the patient was instructed regarding the importance of smoking cessation, obesity, and exercise in the context of both chronic pain and overall health. 4. Procedures: The patient may benefit from getting a diagnostic celiac plexus block while having his exacerbation and this will happen most likely when he is an inpatient if the pain service is consulted for that. 5. Consultations: follow-up with his GI physician at [facility]. We will refer him to Dr. Hein for opioid prescription the future 6. Investigations: None 7. Medications: I'll give the patient prescription for only 20 pills of Putnam 10 mg to get him through his future exacerbation with no refills 8. Disposition: Return to clinic as needed 9. Maps were reviewed and were appropriate. Controlled Substance Measures Is patient prescribed a controlled substance at discharge?: Yes When asked, does pt state using other controlled substances?: No If prescribed controlled substance>3 days was MAPS reviewed?: Yes If Rx opioid, was Start Talking consent form obtained?: Yes If opioid is for acute pain is fill amount 7 days or less?: No Was information provided regarding opioid addiction?: Yes Objective - Vital Signs Vital signs: Vital Signs Temp Pulse 72 08/17/19 13:31 Resp 20 08/17/19 13:31 BP 139/82 08/17/19 13:31 Pulse Ox
== END | disposition home or self-care (01) ==
LOC: PNWHC3 13:09
PROVIDERS: ATTEND Anesthesiology
DX: K86.1 Other chronic pancreatitis (principal); Z79.891 Long term (current) use of opiate analgesic
CPT/HCPCS: 99211

== ENCOUNTER → 2020-05-22 | Outpatient (CLI) | payer OTHER ==
[2020-05-22 11:41] LABS: Basophils # (A) 0.1 k/uL (0-0.2); Basophils % (A) 1 %; Eosinophils # (A) 0.3 k/uL (0-0.7); Eosinophils % (A) 4 %; HCT 44.8 % (39.0-53.0); HGB 14.8 gm/dL (13.0-17.5); Lymphocytes # (A) 1.6 k/uL (1.0-4.8); Lymphocytes % (A) 19 %; MCH 30.1 pg (25.0-35.0); MCV 91.2 fL (80.0-100.0); Mean Platelet Volume 7.6; Monocytes # (A) 0.5 k/uL (0-1.0); Monocytes % (A) 6 %; Neutrophils # (A) 5.6 k/uL (1.3-7.7); Neutrophils % (A) 68 %; Platelet Count 215 k/uL (150-450); RBC 4.92 m/uL (4.30-5.90); RDW 12.2 % (11.5-15.5); WBC 8.2 k/uL (3.8-10.6)
[2020-05-22 11:56] LABS: ALT 36 U/L (4-49); AST 31 U/L (17-59); African American GFR (CKD) >90 (>60 ml/min/1.73 sqM); Albumin 4.3 g/dL (3.5-5.0); Alkaline Phosphatase 85 U/L (38-126); Amylase 32 U/L (30-110); Anion Gap 4 mmol/L; Blood Urea Nitrogen 14 mg/dL (9-20); Carbon Dioxide 30 mmol/L (22-30); Chloride 104 mmol/L (98-107); Cholesterol 150 mg/dL (<200); Glucose 102 mg/dL (74-99); HDL Cholesterol 61 mg/dL (40-60); LDL Cholesterol,Calculated 58 mg/dL (0-99); Lipase <10 U/L (23-300); Non-African American GFR(CKD) >90 (>60 ml/min/1.73 sqM); Sodium 138 mmol/L (137-145); Total Bilirubin 0.8 mg/dL (0.2-1.3); Total Protein 7.3 g/dL (6.3-8.2); Triglycerides 156 mg/dL (<150)
[2020-05-22 12:00] LABS: Potassium 4.9 mmol/L (3.5-5.1)
--- NOTE | 2020-05-22 18:40 | CT ---
EXAMINATION TYPE: CT abdomen w con DATE OF EXAM: 05/22/2020 COMPARISON: 07/25/2019 INDICATION: Chronic pancreatitis, abdominal pain DLP: 601.4 mGycm, Automated exposure control for dose reduction was used. CONTRAST: 100 mL of Isovue 370. Study performed without Oral Contrast TECHNIQUE: Axial images were obtained from above the diaphragm to the iliac crests in the axial plane at 5 mm thick sections. Reconstructed images are reviewed on the computer in the coronal plane. FINDINGS: Limited CT sections are obtained the lung bases. The lung bases are clear. CT ABDOMEN: Liver: Normal Spleen: Normal Pancreas: Pancreatic duct is markedly dilated. Within the head of the pancreas this measures 1.0 cm. At the body the pancreas this measures 0.9 cm. Within the proximal tail of the pancreas this measures 0.5 cm. These measurements should be less than 0.3, 0.2, and 0.1 respectively. An obstructing etiolo gy within the head of the pancreas is not identified. There is some vague hypodensity along the media l aspect of the uncinate process. Neoplasm is not excluded on the basis of this exam. This area appea rs improved from comparison. No suspicious pseudocyst is evident. No discrete abscess is evident. Sig nificant inflammatory changes adjacent to suggest acute pancreatitis is not identified. Adrenal glands: The adrenal glands are normal. Gallbladder: Surgically absent Kidneys: No masses are evident. No hydronephrosis is present. No cysts are present. Delayed images were obtained through the kidneys, which remain unremarkable. Aorta: Vascular calcification is within the aorta. Inferior vena cava: Normal. Loops of bowel within the abdomen and pelvis are normal. There are loops of bowel which are incom pletely distended or lack oral contrast limiting their evaluation. IMPRESSIONS: 1. Markedly dilated pancreatic duct extending from the ampulla to the proximal tail of pancreas. Pre vious stent is absent. 2. Previous acute pancreatitis at the head of the pancreas is not identified. There is some residual low signal within the uncinate process suggesting some residual or mild recurrent pancreatitis. No si gnificant inflammatory changes are adjacent. Close follow-up is recommended.
[2020-05-22 19:01] LABS: Prostate Specific Antigen 1.1 ng/mL (0.0-4.5)
[2020-05-22 21:42] LABS: Hemoglobin A1C 6.5 % (4.0-6.0)
== END | disposition home or self-care (01) ==
LOC: RADCTMAIN 11:01
PROVIDERS: ATTEND Nurse Practitioner Adult Health
DX: K86.89 Other specified diseases of pancreas (principal); Z00.00 Encounter for general adult medical examination without abnormal findings; E11.9 Type 2 diabetes mellitus without complications; Z12.5 Encounter for screening for malignant neoplasm of prostate; K86.1 Other chronic pancreatitis
CPT/HCPCS: 84439; 84153; 80061; 80053; 82150; 83690; 84443; 85025; 83036; 74160; 36415; Q9967

== ENCOUNTER 2020-07-10 15:19 | Emergency (ER) | payer OTHER ==
[2020-07-10 15:25] VITALS: RESP 16; TEMP 98.7
[2020-07-10] MEDS ORDERED: SODIUM CHLORIDE 0.9% 1,000 ML IV STA (15:52)
[2020-07-10] MEDS ORDERED: ONDANSETRON 4 MG/2 ML VIAL IVP STA (15:58)
[2020-07-10] MEDS ORDERED: HYDROmorphone 0.5 MG/0.5 ML SYRINGE IVP STA ×3 (15:58→17:07)
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
[2020-07-10 16:15] LABS: Basophils # (A) 0.1 k/uL (0-0.2); Basophils % (A) 1 %; Eosinophils # (A) 0.4 k/uL (0-0.7); Eosinophils % (A) 3 %; HCT 42.6 % (39.0-53.0); HGB 14.8 gm/dL (13.0-17.5); Lymphocytes # (A) 1.6 k/uL (1.0-4.8); Lymphocytes % (A) 12 %; MCH 30.1 pg (25.0-35.0); MCHC 34.7 g/dL (31.0-37.0); MCV 86.9 fL (80.0-100.0); Mean Platelet Volume 8.2; Monocytes # (A) 0.8 k/uL (0-1.0); Monocytes % (A) 6 %; Neutrophils # (A) 10.2 k/uL (1.3-7.7); Neutrophils % (A) 77 %; Platelet Count 232 k/uL (150-450); RBC 4.89 m/uL (4.30-5.90); RDW 12.5 % (11.5-15.5); WBC 13.3 k/uL (3.8-10.6)
[2020-07-10 16:22] LABS: ALT 21 U/L (4-49); AST 23 U/L (17-59); African American GFR (CKD) >90 (>60 ml/min/1.73 sqM); Albumin 4.1 g/dL (3.5-5.0); Alkaline Phosphatase 80 U/L (38-126); Amylase <30 U/L (30-110); Anion Gap 9 mmol/L; Blood Urea Nitrogen 9 mg/dL (9-20); Calcium 9.1 mg/dL (8.4-10.2); Carbon Dioxide 23 mmol/L (22-30); Chloride 101 mmol/L (98-107); Glucose 166 mg/dL (74-99); Lipase 18 U/L (23-300); Non-African American GFR(CKD) >90 (>60 ml/min/1.73 sqM); Sodium 133 mmol/L (137-145); Total Bilirubin 0.6 mg/dL (0.2-1.3); Total Protein 7.1 g/dL (6.3-8.2)
--- NOTE | 2020-07-10 16:48 | XR ---
EXAMINATION TYPE: XR KUB DATE OF EXAM: 07/10/2020 COMPARISON: 07/30/2019 HISTORY: Nausea. Abdominal pain. TECHNIQUE: 2 views upright FINDINGS: There is 2 stents over the right upper quadrant. These could BE stents in the pancreatic or common bile duct. There are surgical clips over the right upper quadrant. There is no sign of intest inal obstruction or pneumoperitoneum. Fecal pattern is normal. There is no evidence of a mass. Lung b ases are clear. IMPRESSION: There are 2 stents over the right upper quadrant and replacing the stent evident on the o ld exam. Nonacute abdomen.
[2020-07-10 16:55] LABS: Appearance,Urine Clear (Clear); Bilirubin,Urine Negative (Negative); Blood,Urine Negative (Negative); Color,Urine Yellow; Glucose,Urine (UA) Negative (Negative); Ketones,Urine Negative (Negative); Leukocyte Esterase,Urine Trace (Negative); Mucus,Urine Occasional /hpf; Nitrite,Urine Negative (Negative); PH, Urine 5.5 (5.0-8.0); Protein,Urine Negative (Negative); RBC,Urine 1 /hpf (0-5); Specific Gravity,Urine 1.018 (1.001-1.035); Urobilinogen,Urine <2.0 mg/dL (<2.0); WBC,Urine 1 /hpf (0-5)
[2020-07-10 17:50] VITALS: BP 137/87; PULSE 60
== END 2020-07-10 17:45 | disposition home or self-care (01) ==
LOC: EC 15:19
DX: R10.10 Upper abdominal pain, unspecified (principal); E11.9 Type 2 diabetes mellitus without complications; I10 Essential (primary) hypertension; Z79.4 Long term (current) use of insulin; Z79.899 Other long term (current) drug therapy; Z87.891 Personal history of nicotine dependence; Z90.49 Acquired absence of other specified parts of digestive tract; Z85.828 Personal history of other malignant neoplasm of skin
CPT/HCPCS: 36415; 80053; 82150; 83690; 85025; 81001; 74018; 99284; 96374; 96375; 96376; 96361; J2405; J1170

== ENCOUNTER 2020-07-12 20:55 | Observation (INO) | payer OTHER ==
[2020-07-12] MEDS ORDERED: SODIUM CHLORIDE 0.9% 1,000 ML IV STA ×2 (21:13)
[2020-07-12] MEDS ORDERED: ONDANSETRON 4 MG/2 ML VIAL IVP STA (21:21)
[2020-07-12] MEDS ORDERED: HYDROmorphone 1 MG/ML 1 ML SYRINGE IVP STA (21:21)
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
--- NOTE | 2020-07-12 21:54 | XR ---
EXAMINATION TYPE: XR KUB DATE OF EXAM: 07/12/2020 COMPARISON: 07/10/2020 HISTORY: Epigastric pain TECHNIQUE: 2 views upright FINDINGS: There are 2 stents over the right upper quadrant that could be in the pancreatic duct or th e common bile duct. There are surgical clips over the right upper quadrant consistent with cholecyste ctomy. There is no sign of intestinal obstruction or pneumoperitoneum. Fecal pattern is normal. There is no sign of a mass. Lung bases are clear. IMPRESSION: Nonacute abdomen. No change.
[2020-07-12 22:03] LABS: Basophils # (A) 0.1 k/uL (0-0.2); Basophils % (A) 1 %; Eosinophils # (A) 0.4 k/uL (0-0.7); Eosinophils % (A) 5 %; HCT 40.7 % (39.0-53.0); HGB 13.8 gm/dL (13.0-17.5); Lymphocytes # (A) 1.7 k/uL (1.0-4.8); Lymphocytes % (A) 21 %; MCHC 33.9 g/dL (31.0-37.0); MCV 88.5 fL (80.0-100.0); Monocytes # (A) 0.6 k/uL (0-1.0); Monocytes % (A) 7 %; Neutrophils # (A) 5.1 k/uL (1.3-7.7); Platelet Count 232 k/uL (150-450); RDW 12.5 % (11.5-15.5)
[2020-07-12 22:15] LABS: Partial Thromboplastin Time 25.7 sec (22.0-30.0); Prothrombin Time 10.7 sec (9.0-12.0)
[2020-07-12 22:16] LABS: ALT 17 U/L (4-49); AST 19 U/L (17-59); African American GFR (CKD) >90 (>60 ml/min/1.73 sqM); Albumin 3.6 g/dL (3.5-5.0); Alcohol <10 mg/dL; Alkaline Phosphatase 86 U/L (38-126); Amylase 39 U/L (30-110); Anion Gap 6 mmol/L; Blood Urea Nitrogen 13 mg/dL (9-20); Calcium 8.7 mg/dL (8.4-10.2); Carbon Dioxide 25 mmol/L (22-30); Chloride 105 mmol/L (98-107); Creatine Kinase 48 U/L (55-170); Glucose 268 mg/dL (74-99); Lipase 35 U/L (23-300); Non-African American GFR(CKD) >90 (>60 ml/min/1.73 sqM); Potassium 4.2 mmol/L (3.5-5.1); Sodium 136 mmol/L (137-145); Total Bilirubin 0.3 mg/dL (0.2-1.3); Total Protein 6.3 g/dL (6.3-8.2)
[2020-07-12] MEDS ORDERED: NALOXONE 0.4 MG/ML 1 ML VIAL IV PRN (23:07)
[2020-07-12 23:10] LABS: Appearance,Urine Clear (Clear); Bilirubin,Urine Negative (Negative); Blood,Urine Negative (Negative); Color,Urine Yellow; Glucose,Urine (UA) 1+ (Negative); Ketones,Urine Negative (Negative); Leukocyte Esterase,Urine Negative (Negative); Nitrite,Urine Negative (Negative); PH, Urine 6.5 (5.0-8.0); Protein,Urine Negative (Negative); Urobilinogen,Urine <2.0 mg/dL (<2.0)
[2020-07-13] MEDS: SODIUM CHLORIDE 0.9% 1,000 ML IV SCH ×3 (00:20→12:30)
[2020-07-13] MEDS: HYDROmorphone 1 MG/ML 1 ML SYRINGE IVP PRN ×2 (01:39→08:13)
[2020-07-13 06:48] LABS: LDH 265 U/L (313-618); Lipase <10 U/L (23-300)
[2020-07-13 07:55] VITALS: RESP 16
[2020-07-13 07:55] LABS: Glucose,Whole Blood 74 mg/dL (75-99)
[2020-07-13] MEDS: INSULIN ASPART (NovoLOG) 100 UNIT/ML VIAL SQ SCH ×2 (08:08→12:30)
[2020-07-13] MEDS ORDERED: ENOXAPARIN 40 MG/0.4 ML SYRINGE SQ SCH (10:45)
[2020-07-13] MEDS ORDERED: PANTOPRAZOLE 40 MG TABLET PO SCH (10:45)
[2020-07-13] MEDS ORDERED: lisinopriL 5 MG TAB PO SCH (10:45)
[2020-07-13 11:30] LABS: Glucose,Whole Blood 89 mg/dL (75-99)
[2020-07-13] MEDS ORDERED: INSULIN DETEMIR (LEVEMIR) 100 UNIT/ML SYR SQ SCH (12:42)
[2020-07-13 13:36] VITALS: BP 122/75; PULSE 54; TEMP 98.8
--- NOTE | 2020-07-13 14:02 | CONS ---
CONSULTATION DATE OF DICTATION: July 13, 2020. REASON FOR CONSULTATION: Severe epigastric pain and history of chronic pancreatitis. The patient is a 64-year-old pleasant white male with history of chronic relapsing pancreatitis diagnosed 2-1/2 years ago with multiple hospitalizations with recurrent episodes as well as severe epigastric pain. He is being followed at [facility] and seen Dr. Miller, GI group. He underwent an ERCP with CBD stent placement as well as pancreatic duct stent placement on June 15, 2020 because of persistent abdominal pain as well as distal common bile duct stricture. Following the procedure, patient has been complaining of severe epigastric pain. He came to the emergency room twice and he was discharged home on pain medications, but yesterday the pain got intensely worse and hence came to the emergency room with nausea, vomiting. In the ER, he was noted to have normal LFTs, normal lipase. He has been receiving Dilaudid every 3-4 hours. He has a remote history of alcohol abuse. PAST MEDICAL HISTORY: Significant for diabetes mellitus, hypertension, COPD, chronic relapsing pancreatitis. PAST SURGICAL HISTORY: Appendectomy, cholecystectomy, hernia repair, multiple EGDs with ERCP and CBD as well as pancreatic duct stent placement at [facility], last one in May of 2020. MEDICATIONS: Medications at home include omeprazole, Creon, insulin, Zestril, Cipro, Homer, Flagyl, Zofran, and oxycodone. ALLERGIES: None. SOCIAL HISTORY: Former smoker. History of heavy alcohol use in the past, quit drinking 3 years ago. FAMILY HISTORY: Mother had some kind of cancer. REVIEW OF SYSTEMS: CARDIOPULMONARY: No chest pain or shortness of breath. GENITOURINARY: No dysuria or hematuria. MUSCULOSKELETAL: Unremarkable. SKIN: Unremarkable. ENDOCRINE: Unremarkable. PSYCHIATRIC: Unremarkable. NEUROLOGY: Unremarkable. ENT/VISION: Unremarkable. CONSTITUTIONAL: Chronic pain. No fever, chills, night sweats. PHYSICAL EXAMINATION: He appears comfortable. Vital signs are stable. Blood pressure 133/70, pulse rate 53, temperature 97.8. HEENT EXAMINATION: Unremarkable. Conjunctivae pink. Sclerae anicteric. Oral cavity, no lesions. NECK: No JVD or lymph node enlargement. CHEST: Was clear to auscultation. HEART: Regular rate and rhythm. ABDOMEN: Soft. There was tenderness in the epigastric area. Rest of the abdomen was benign. Bowel sounds are positive. No organomegaly. EXTREMITIES: No pedal edema. SKIN: No rashes. NEUROLOGIC: Alert and oriented x3. No focal deficits. LABS: WBC 8, hemoglobin 13.8, platelets normal. Basic metabolic panel is within normal limits. BUN 13, creatinine 0.52. Lipase is normal. AST, ALT, T-bilirubin and alkaline phosphatase are normal. Alcohol level is less than 10. IMPRESSION: This is a patient who presented to the hospital with severe epigastric pain for the last 2 days duration. He was diagnosed with chronic relapsing pancreatitis secondary to remote history of alcohol use, which he quit drinking about 2-1/2 years ago. He was diagnosed with pancreatic ductal stricture as well as common bile duct stricture and was seen by Dr. Miller at [facility] and underwent an ERCP with common bile duct as well as pancreatic duct stent placement about 3 weeks ago. Since then, patient states that his symptoms are progressively getting worse. The patient had a tele visit with Dr. Miller at [facility] this morning and he recommended transfer to [facility] for further management. In fact, I called Dr. Miller and he recommended the same. The patient will make arrangements for him to be transferred to [facility] for further management and care. RECOMMENDATIONS: 1. Continue with symptomatic and supportive care. 2. Pain medications as needed. 3. Keep him n.p.o. 4. Discussed with Dr. Astorga regarding transfer to [facility]. Thank you for this consultation. MMODL / IJN: [id number] /
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
[2020-07-13] MEDS ORDERED: CIPROFLOXACIN HCL 500 MG TAB PO SCH (16:15)
[2020-07-13] MEDS ORDERED: metroNIDAZOLE 500 MG TAB PO SCH (16:15)
--- NOTE | 2020-07-14 09:06 | P.DS ---
Providers Date of admission: 07/12/20 23:11 Expected date of discharge: 07/13/20 Attending physician: Saravanan Astorga Consults: 07/12/20 23:08 Consult Physician Routine Consulting Provider: Alissa Zelaya Consult Reason/Comments: Chronic pancreatitis, abdominal pain Do you want consulting provider notified?: Yes, Notify in am Primary care physician: Dionicio Ribera [facility] Course: Chief Complaint: Abdominal pain History of presenting complaint: This is a 63-year-old patient of Dr. Dionicio Ribera. Chronic stable medical conditions include COPD, diabetes, hypertension, gout. Was drinking significant alcohol the past. Patient's had recurrent bouts of pancreatitis. On June 12 patient was at [facility] Dr. Cheung. Under care of gastroneurologist . Patient initially had 1 stent. The pancreatic duct and 2 in the common bile duct stricture. Subsequently patient was having more symptoms questionable infection and one of the stents was removed on June 20. Then again on July 04 patient return to have the stents replaced. Patient continues to have abdominal pain. 4 days ago patient also had fever and chills. 2 days ago came to the ER again for the same symptoms. Return again admitted last night. Symptoms. Present. Patient has been on ciprofloxacin and Flagyl from a GI physician. Enzymes have been negative. Not feeling well. Case was discussed with Dr. Jc Zelaya. She had spoken to Dr Miller the scientific illustrator at [facility]. Wanted the patient to be transferred over for further intervention. I spoke to the transfer deep at [facility]. Spoke to the accepting hospitalist. Discussed with the patient. Patient will be transferred for higher level of care. Discussion and discharge planning more than 35 minutes Consultation: Dr. 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 Stopped 22 years ago. Was drinking alcohol previously stopped in 2018. Has rarely used marijuana Physical examination: VITAL SIGNS: 98.8, 54, 16, 122/75, 98% on room air GENERAL: BMI 25.1, laying in bed, not in distress EYES: Pupils equal. Conjunctiva normal. HEENT: External appearance of nose and ears normal, oral cavity grossly normal. NECK: JVD not raised; masses not palpable. HEART: First and second heart sounds are normal; no edema. LUNGS: Respiratory rate normal; clear to auscultation. ABDOMEN: Soft, epigastric tenderness, no guarding or rigidity, liver spleen not palpable, no masses palpable. PSYCH: Alert and oriented x3; mood and affect normal. INVESTIGATIONS, reviewed in the clinical context: White count 8 hemoglobin 13.8 platelets 232 potassium 4.2 creatinine 0.5 to Blood glucose 268 Amylase 39 and lipase 35 KUB-unremarkable Assessment: -Acute on chronic alcohol-induced pancreatitis recurrent in a patient is is that, no bile duct stents and pancreatic duct stents can't get antibiotics including ciprofloxacin and Flagyl. -Diabetes mellitus type 2, uncontrolled with hyperglycemia -COPD in an ex-smoker -Essential hypertension - Disposition: Transferred [facility] for higher level of care Patient Condition at Discharge: Stable Plan - Discharge Summary New Discharge Prescriptions: No Action Omeprazole 40 mg PO DAILY Lipase/Protease/Amylase [Lokesh Diaz 36,000 Units Capsule] 3 cap PO TID-W/MEALS lisinopriL [Zestril] 5 mg PO DAILY Insulin Glargine,Hum.rec.anlog [Basaglar Kwikpen U-100] 22 unit SQ DAILY ondansetron HCL [Zofran] 8 mg PO BID PRN PRN Reason: Nausea And Vomiting metroNIDAZOLE [Flagyl] 500 mg PO Q8H Insulin Aspart [NovoLOG Flexpen] See Protocol SQ TID-W/MEALS Ciprofloxacin HCl [Cipro] 500 mg PO Q12H HYDROcodone/APAP 5-325MG [[place] 5-325] 1 tab PO Q4H PRN PRN Reason: Pain oxyCODONE HCL 5 mg PO Q8H PRN PRN Reason: pain Discharge Medication List Omeprazole 40 mg PO DAILY 01/02/18 [History] Lipase/Protease/Amylase [Lokesh Diaz 36,000 Units Capsule] 3 cap PO TID-W/MEALS 10/10/18 [History] Insulin Glargine,Hum.rec.anlog [Basaglar Kwikpen U-100] 22 unit SQ DAILY 07/05/19 [History] lisinopriL [Zestril] 5 mg PO DAILY 07/05/19 [History] Ciprofloxacin HCl [Cipro] 500 mg PO Q12H 07/10/20 [History] HYDROcodone/APAP 5-325MG [[place] 5-325] 1 tab PO Q4H PRN 07/10/20 [History] Insulin Aspart [NovoLOG Flexpen] See Protocol SQ TID-W/MEALS 07/10/20 [History] metroNIDAZOLE [Flagyl] 500 mg PO Q8H 07/10/20 [History] ondansetron HCL [Zofran] 8 mg PO BID PRN 07/10/20 [History] oxyCODONE HCL 5 mg PO Q8H PRN 07/10/20 [History] Follow up Appointment(s)/Referral(s): Dionicio Rbiera MD [Primary Care Provider] - 1-2 days Discharge Disposition: OTHER INSTITUTION NOT DEFINED
== END 2020-07-13 16:11 | disposition short-term general hospital (02) ==
LOC: EC 20:55 → INTOOBSV 23:11 → 4SSUR 23:11 → UNDODISIN 07-13 16:11
PROVIDERS: ADMIT Hospitalist; ATTEND Hospitalist
DX: K85.90 Acute pancreatitis without necrosis or infection, unspecified (principal); K86.0 Alcohol-induced chronic pancreatitis; K86.81 Exocrine pancreatic insufficiency; E11.65 Type 2 diabetes mellitus with hyperglycemia; J44.9 Chronic obstructive pulmonary disease, unspecified; I10 Essential (primary) hypertension; M10.9 Gout, unspecified; F40.240 Claustrophobia; Z20.822 Contact with and (suspected) exposure to COVID-19; Z87.19 Personal history of other diseases of the digestive system; Z90.49 Acquired absence of other specified parts of digestive tract; Z79.899 Other long term (current) drug therapy; Z79.4 Long term (current) use of insulin; Z85.828 Personal history of other malignant neoplasm of skin; Z87.01 Personal history of pneumonia (recurrent); Z87.81 Personal history of (healed) traumatic fracture; Z86.010 Personal history of colon polyps; Z98.890 Other specified postprocedural states; Z87.891 Personal history of nicotine dependence; Z80.7 Family history of other malignant neoplasms of lymphoid, hematopoietic and related tissues; Z80.8 Family history of malignant neoplasm of other organs or systems
CPT/HCPCS: 96376; 96372; 96361; 96374; 96375; 99285; 36415; 80053; 82150; 82550; 83605; 83615; 83690 ×2; 84484; 85025; 85610; 85730; 81003; 80320; 87635; 74018; G0378 ×2; J2405; J1650; J1170 ×2

== ENCOUNTER → 2020-12-04 | Outpatient (CLI) | payer OTHER ==
--- NOTE | 2020-12-04 13:44 | CT ---
EXAMINATION TYPE: CT abdomen pelvis wo con DATE OF EXAM: 12/04/2020 COMPARISON: 05/22/2020 HISTORY: LLQ pain CT DLP: 702 mGycm Automated exposure control for dose reduction was used. TECHNIQUE: Helical acquisition of images was performed from the lung bases through the pelvis. FINDINGS: LUNG BASES: No significant abnormality is appreciated. LIVER/GB: Surgical clips in the gallbladder fossa.. PANCREAS: There remains a dilated pancreatic duct. Ampullary mass in the differential diagnosis. Manager [place] angélica pancreatitis also a consideration. Pancreatic duct approximately 1 cm within the region of the pa ncreatic head. SPLEEN: No significant abnormality is seen. ADRENALS: No significant abnormality is seen. KIDNEYS: Punctate 1 mm nonobstructing left renal calculus. ADENOPATHY: None visualized. OSSEOUS STRUCTURES: Hypertrophic and degenerative changes spine. There is a moderate superior endpla te compression fracture of L2. Disc protrusion L4-L5 with canal stenosis. BOWEL: No significant abnormality is seen. OTHER: Atherosclerotic change of the aorta. No evidence of aneurysm. No free air. Prostate gland appe ars enlarged with calcified lesions correlate with PSA. IMPRESSION: 1. Ill-definition of the pancreatic margins with dilated pancreatic duct to the level of the ampulla. Maximal dimension is 1 cm. Correlate for pancreatitis. Differential diagnosis would include a chroni c pancreatitis. Ampullary mass in the differential recommend ERCP. IPMN also a consideration. 2. 1 mm nonobstructing left renal calculus axial image 44. 3. Prostate hypertrophy.
== END | disposition home or self-care (01) ==
LOC: RADCTMAIN 12:41
PROVIDERS: ATTEND Nurse Practitioner Adult Health
DX: K86.89 Other specified diseases of pancreas (principal); N20.0 Calculus of kidney; N40.0 Benign prostatic hyperplasia without lower urinary tract symptoms
CPT/HCPCS: 74176

== ENCOUNTER 2020-12-14 15:11 | Observation (INO) | payer OTHER ==
[2020-12-14] MEDS ORDERED: SODIUM CHLORIDE 0.9% 500 ML 500 ML IV ONE (17:30)
[2020-12-14] MEDS ORDERED: SODIUM CHLORIDE 0.9% 1,000 ML IV ONE (17:30)
[2020-12-14] MEDS ORDERED: MORPHINE SULFATE 4 MG/ML SYRINGE IVP STA (17:42)
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
[2020-12-14 17:56] LABS: Basophils # (A) 0.1 k/uL (0-0.2); Basophils % (A) 1 %; Eosinophils # (A) 0.3 k/uL (0-0.7); Eosinophils % (A) 5 %; HCT 38.6 % (39.0-53.0); HGB 13.2 gm/dL (13.0-17.5); Lymphocytes # (A) 1.2 k/uL (1.0-4.8); Lymphocytes % (A) 17 %; MCH 29.9 pg (25.0-35.0); MCHC 34.2 g/dL (31.0-37.0); MCV 87.4 fL (80.0-100.0); Mean Platelet Volume 8.1; Monocytes # (A) 0.4 k/uL (0-1.0); Monocytes % (A) 6 %; Neutrophils # (A) 5.2 k/uL (1.3-7.7); Neutrophils % (A) 71 %; Platelet Count 252 k/uL (150-450); RBC 4.42 m/uL (4.30-5.90); RDW 12.6 % (11.5-15.5); WBC 7.3 k/uL (3.8-10.6)
[2020-12-14] MEDS ORDERED: ONDANSETRON 4 MG/2 ML VIAL IVP STA (18:01)
[2020-12-14 18:07] LABS: ALT 50 U/L (4-49); AST 28 U/L (17-59); African American GFR (CKD) >90 (>60 ml/min/1.73 sqM); Albumin 3.7 g/dL (3.5-5.0); Alkaline Phosphatase 157 U/L (38-126); Amylase 45 U/L (30-110); Anion Gap 5 mmol/L; Blood Urea Nitrogen 9 mg/dL (9-20); Calcium 8.7 mg/dL (8.4-10.2); Carbon Dioxide 31 mmol/L (22-30); Chloride 105 mmol/L (98-107); Glucose 105 mg/dL (74-99); Lipase 29 U/L (23-300); Non-African American GFR(CKD) >90 (>60 ml/min/1.73 sqM); Potassium 4.3 mmol/L (3.5-5.1); Sodium 141 mmol/L (137-145); Total Bilirubin 0.3 mg/dL (0.2-1.3); Total Protein 6.5 g/dL (6.3-8.2)
--- NOTE | 2020-12-14 19:27 | CT ---
EXAMINATION TYPE: CT abdomen pelvis w con DATE OF EXAM: 12/14/2020 COMPARISON: CT without contrast 12/04/2020 HISTORY: Pain, history of pancreatitis CT DLP: 857.3 mGycm Automated exposure control for dose reduction was used. TECHNIQUE: Helical acquisition of images was performed from the lung bases through the pelvis. CONTRAST: Performed without Oral Contrast and with IV Contrast, patient injected with 100 mL of Isovu e 300. FINDINGS: LUNG BASES: No significant abnormality is appreciated. LIVER/GB: No focal liver lesions. Mild prominence to the extrahepatic and intrahepatic biliary tree; patient is post cholecystectomy. PANCREAS: The prominent pancreatic ductal dilation seen on the prior study is redemonstrated. There i s now moderate indistinctness to the pancreatic head and neck parenchyma, or conspicuous on the prese nt study. In addition, there are 2 gas bubbles within the major pancreatic duct, one at the midline a nd one within the pancreatic tail. These gas bubbles measure 3 mm and 1 mm diameter, respectively, an d are new since the prior study. There are no peripancreatic fluid or gas collections. SPLEEN: No significant abnormality is seen. ADRENALS: No significant abnormality is seen. KIDNEYS: No significant abnormality is seen. PERITONEAL CAVITY: No pneumoperitoneum or peritoneal fluid. RETROPERITONEAL ADENOPATHY: None visualized REPRODUCTIVE ORGANS: No significant abnormality is seen URINARY BLADDER: No significant abnormality is seen. PELVIC ADENOPATHY: None visualized. OSSEOUS STRUCTURES: No significant abnormality is seen. BOWEL: No significant abnormality is seen. OTHER: No acute vascular findings. IMPRESSION: MODERATE PANCREATITIS, HAVING INCREASED SINCE THE PRIOR STUDY OF 12/04/2020, NOW WITH 2 GAS BUBBLES WI THIN THE MAJOR PANCREATIC DUCT. Note: Eventual follow-up MRI/MRCP can be used to further characterize and prove resolution of the fi ndings
[2020-12-14] MEDS ORDERED: NALOXONE 0.4 MG/ML 1 ML VIAL IV PRN (19:58)
[2020-12-14] MEDS: MORPHINE SULFATE 4 MG/ML SYRINGE IV PRN (20:51)
[2020-12-14 20:58] VITALS: RESP 18
[2020-12-14] MEDS ORDERED: ONDANSETRON 4 MG/2 ML VIAL IVP PRN (22:05)
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
[2020-12-14 22:11] LABS: Glucose,Whole Blood 69 mg/dL (75-99)
[2020-12-14] MEDS ORDERED: DEXTROSE 50% SYRINGE 50 ML IVP STA (22:13)
[2020-12-14] MEDS ORDERED: DEXTROSE 50% SYRINGE 50 ML IVP ONE (22:15)
[2020-12-14] MEDS ORDERED: DEXTROSE 5% IN WATER 1,000 ML IV SCH (22:30)
[2020-12-14 22:34] LABS: Glucose,Whole Blood 174 mg/dL (75-99)
[2020-12-14 22:56] LABS: Glucose,Whole Blood 129 mg/dL (75-99)
[2020-12-14 23:58] LABS: Glucose,Whole Blood 107 mg/dL (75-99)
[2020-12-15] MEDS: HEPARIN SODIUM,PORCINE/PF 5,000 UNIT/0.5 ML SYRINGE SQ SCH ×2 (00:01→08:28)
[2020-12-15] MEDS: SODIUM CHLORIDE 0.9% 1,000 ML IV SCH ×3 (03:04→12:00)
[2020-12-15 03:22] LABS: Glucose,Whole Blood 104 mg/dL (75-99)
[2020-12-15] MEDS: MORPHINE SULFATE 4 MG/ML SYRINGE IV PRN ×2 (03:31→08:30)
[2020-12-15 07:09] LABS: Glucose,Whole Blood 80 mg/dL (75-99)
[2020-12-15] MEDS: INSULIN ASPART (NovoLOG) 100 UNIT/ML VIAL SQ SCH ×2 (07:17→12:01)
[2020-12-15 08:02] VITALS: BP 123/63; PULSE 50; TEMP 97.9
[2020-12-15] MEDS ORDERED: lisinopriL 5 MG TAB PO SCH (09:00)
[2020-12-15] MEDS ORDERED: PANTOPRAZOLE 40 MG TABLET PO SCH (09:00)
[2020-12-15] MEDS ORDERED: TAMSULOSIN 0.4 MG CAP.ER.24H PO SCH (09:00)
[2020-12-15 09:48] LABS: Basophils # (A) 0.04 X 10*3/uL (0.00-0.10); Basophils % (A) 0.8 %; Eosinophils # (A) 0.23 X 10*3/uL (0.04-0.35); Eosinophils % (A) 4.9 %; HCT 34.5 % (39.6-50.0); HGB 11.3 g/dL (13.0-17.0); Lymphocytes # (A) 1.14 X 10*3/uL (0.90-5.00); Lymphocytes % (A) 24.1 %; MCH 29.5 pg (27.0-32.0); MCHC 32.8 g/dL (32.0-37.0); MCV 90.1 fL (80.0-97.0); Mean Platelet Volume 11.9 fL (9.5-12.2); Monocytes # (A) 0.52 X 10*3/uL (0.20-1.00); Platelet Count 233 X 10*3/uL (140-440); RBC 3.83 X 10*6/uL (4.40-5.60); WBC 4.74 X 10*3/uL (4.50-10.00)
[2020-12-15 10:59] LABS: African American GFR (CKD) 132.7 (60.0-200.0); Albumin 3.3 g/dL (3.80-4.90); Albumin/Globulin Ratio 1.74 (1.60-3.17); Anion Gap 3.5 mmol/L (4.00-12.00); Calcium 7.9 mg/dL (8.7-10.3); Carbon Dioxide 28.5 mmol/L (21.6-31.8); Globulin 1.9 g/dL (1.6-3.3); Non-African American GFR(CKD) 114.5 (60.0-200.0); Potassium 3.7 mmol/L (3.5-5.5); Total Bilirubin 0.8 mg/dL (0.2-1.2); Total Protein 5.2 g/dL (6.2-8.2)
[2020-12-15] MEDS ORDERED: HYDROcodone/APAP 5-325MG 1 EACH TAB PO PRN (11:34)
[2020-12-15] MEDS ORDERED: ONDANSETRON 4 MG TAB PO PRN (11:34)
[2020-12-15 11:40] LABS: Glucose,Whole Blood 112 mg/dL (75-99)
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
[2020-12-16] MEDS ORDERED: polyethylene glycoL 3350 17 GM POWD.PACK PO SCH (09:00)
== END 2020-12-15 14:10 | disposition home or self-care (01) ==
LOC: EC 15:11 → 6NMEDSUR 19:59
PROVIDERS: ADMIT Internal Medicine; ATTEND Internal Medicine
DX: K86.1 Other chronic pancreatitis (principal); E11.9 Type 2 diabetes mellitus without complications; J44.9 Chronic obstructive pulmonary disease, unspecified; Z20.822 Contact with and (suspected) exposure to COVID-19; I10 Essential (primary) hypertension; M10.9 Gout, unspecified; F40.240 Claustrophobia; Z79.899 Other long term (current) drug therapy; Z79.4 Long term (current) use of insulin; Z85.828 Personal history of other malignant neoplasm of skin; Z86.010 Personal history of colon polyps; Z87.01 Personal history of pneumonia (recurrent); Z90.49 Acquired absence of other specified parts of digestive tract; Z90.89 Acquired absence of other organs; Z87.891 Personal history of nicotine dependence; Z87.19 Personal history of other diseases of the digestive system; Z87.81 Personal history of (healed) traumatic fracture; Z87.442 Personal history of urinary calculi; Z80.7 Family history of other malignant neoplasms of lymphoid, hematopoietic and related tissues; Z80.8 Family history of malignant neoplasm of other organs or systems
CPT/HCPCS: 96374; 96376 ×2; 96375 ×2; 96361; 36415; 80053 ×2; 82150; 83605; 83690 ×2; 84484; 85025 ×2; 85730; 87635; 74177; G0378 ×2; J2270 ×2; J2405; Q9967; J1644

== ENCOUNTER 2020-12-27 | Emergency (ER) | payer OTHER | END 2020-12-27 08:36 | disposition home or self-care (01) | CPT/HCPCS: 36415; 80053; 82150; 83605; 83690; 85025; 81001; 99284; 96374; 96375; 96361; J2270; J2405 ==

== ENCOUNTER 2021-01-19 06:51 | Day surgery (SDC) | payer OTHER ==
[2021-01-16 14:43] VITALS: BMI 25.0
[~2021-01-19 06:51] MED LIST changes: +LACTATED RINGERS 1,000 ML IV SCH; +LIDOCAINE 1% (10MG/ML) FOR IV START INTRADERMA PRN; -SODIUM CHLORIDE 0.9% 500 ML 500 ML IV ONE; -SODIUM CHLORIDE 0.9% 500 ML 500 ML IV SCH
[2021-01-19 07:12] VITALS: TEMP 98.3
[2021-01-19 07:17] LABS: Glucose,Whole Blood 62 mg/dL (75-99)
[2021-01-19] MEDS ORDERED: DEXTROSE 50% SYRINGE 50 ML IVP ONE (07:22)
[2021-01-19 07:36] LABS: Glucose,Whole Blood 118 mg/dL (75-99)
[2021-01-19] MEDS ORDERED: LIDOCAINE 1% INJ 10MG/ML (20 ML MDV) ONE (07:55)
[2021-01-19] MEDS ORDERED: PROPOFOL 10 MG/ML 20 ML VIAL IV ONE (07:55)
--- NOTE | 2021-01-19 08:22 | P.PCN ---
Date of Procedure: 01/19/21 Procedure(s) Performed: Brief history: Patient is a pleasant 65-year-old white male scheduled for an elective upper endoscopy as well as colonoscopy as a part of evaluation of epigastric abdominal pain, alternating diarrhea and constipation of almost 1 year duration. Has history of chronic pancreatitis and follows up at [facility]. Procedure performed: Esophagogastroduodenoscopy biopsy Colonoscopy Preoperative diagnosis: Abdominal pain, alternating diarrhea and constipation Anesthesia: [facility] [place] Procedure: After informed consent was obtained from the patient was brought into the endoscopy unit and IV sedation was administered by anesthesia under continuous monitoring. Initially upper endoscopy was done. The Olympus GF 160 video endoscope was inserted inserted into the mouth and esophagus intubated without any difficulty and was gradually advanced into the stomach and duodenum and care fully examined. The bulb and second part of the duodenum appeared normal. 2 plastic duodenal stents were noted at that was very orifice. Biopsies were done from the duodenum to rule out celiac disease. The scope was then withdrawn into the stomach adequately insufflated with air and upon careful examination the antrum had mild diffuse gastritis with scattered erosions and biopsies were done from this area. The body, cardia and fundus appeared normal. The scope was then withdrawn into the esophagus. The GE junction was located at 40 cm to the incisors. It appeared regular with no erythema erosions or ulcerations. Rest of the esophagus appeared normal. Patient tolerated the procedure well. At this time the patient continued to remain sedation. Initial digital rectal examination was normal. Olympus CF 160 video colonoscope was then inserted into the rectum and gradually advanced to the cecum without any difficulty. Careful examination was performed as the scope was gradually being withdrawn. The prep was excellent. The cecum, ascending colon, transverse colon, descending colon, sigmoid colon and rectum appeared normal. Retroflexion was performed in the rectum and no lesions were noted. Patient tolerated the procedure well. Impression: 1. Upper endoscopy revealed antral erosive gastritis but no evidence of peptic ulcer disease. 2. Colonoscopy was within normal limits with no evidence of colitis or colorectal neoplasia Recommendations: Findings of this examination were discussed with the patient as well as his family. He was advised to follow with the biopsy results. He can have a repeat screening colonoscopy in 10 years.
[2021-01-19 08:29] LABS: Glucose,Whole Blood 97 mg/dL (75-99)
[2021-01-19 08:36] VITALS: BP 112/67; PULSE 54; RESP 16
== END 2021-01-19 09:19 | disposition home or self-care (01) ==
LOC: ORWHC2ENDO 06:51
PROVIDERS: ATTEND Internal Medicine Gastroenterology
DX: K29.60 Other gastritis without bleeding (principal); K86.1 Other chronic pancreatitis; K86.81 Exocrine pancreatic insufficiency
CPT/HCPCS: 45378; 43239; J2001; J2704; 88305

== ENCOUNTER → 2021-10-15 | Outpatient (CLI) | payer BC ==
--- NOTE | 2021-10-16 07:14 | CA ---
Transthoracic Echo Report Name: Errol Hernandez Age: 65 Gender: M : 1955 Exam Date: 10/15/2021 13:36 Exam Location: [facility] Ht (in): 67 Wt (lb): 145 Ordering Physician: Dionicio Ribera MD Attending/Referring Phys: Marcela Cook [facility] [employer] Lulu Chicas RDCS Procedure CPT: Indications: R01.1 Cardiac Hx: Technical Quality: Good Contrast 1: Total Dose (mL): Contrast 2: Total Dose (mL): MEASUREMENTS (Male / Female) Normal Values 2D ECHO LV Diastolic Diameter PLAX 4.7 cm 4.2 - 5.9 / 3.9 - 5.3 cm LV Systolic Diameter PLAX 2.8 cm IVS Diastolic Thickness 1.0 cm 0.6 - 1.0 / 0.6 - 0.9 cm LVPW Diastolic Thickness 1.1 cm 0.6 - 1.0 / 0.6 - 0.9 cm LV Relative Wall Thickness 0.5 LA Volume 42.7 cm 18 - 58 / 22 - 52 cm M-MODE Aortic Root Diameter MM 3.3 cm LA Systolic Diameter MM 2.7 cm LA Ao Ratio MM 0.8 MV E Point Septal Separation 0.8 cm AV Cusp Separation MM 2.1 cm DOPPLER MV Area PHT 2.9 cm MR Peak Velocity 318.9 cm/s MR Peak Gradient 40.7 mmHg Mitral E Point Velocity 88.0 cm/s Mitral A Point Velocity 96.7 cm/s Mitral E to A Ratio 0.9 MV Deceleration Time 262.2 ms MV E' Velocity 8.6 cm/s Mitral E to MV E' Ratio 10.2 TR Peak Velocity 184.8 cm/s TR Peak Gradient 13.7 mmHg Right Ventricular Systolic Press 17.8 mmHg FINDINGS Left Ventricle Normal left ventricular size, wall thickness, systolic function with no obvious regional wall motion abnormalities. Normal left ventricular diastolic filling pattern for age. The ejection fraction is visually estimated at 55-60 %. Right Ventricle The right ventricle is normal in size and function. Right Atrium The right atrium is normal in size. Left Atrium The left atrium is normal in size. Mitral Valve Structurally normal mitral valve without significant stenosis or prolapse. There is mild mitral regurgitation. Mitral valve thickened. Aortic Valve Structurally normal aortic valve without significant sclerosis or stenosis. There is no aortic regurgitation. Tricuspid Valve Structurally normal tricuspid valve without significant stenosis. Pulmonary artery systolic pressure is normal. Trace tricuspid regurgitation. Pulmonic Valve Structurally normal pulmonic valve without significant stenosis. There is no pulmonic regurgitation. Pericardium Normal pericardium without effusion. Aorta Normal aortic root dimension. CONCLUSIONS Normal LV size and systolic function. There is mild concentric LVH. In some views it appears to be mid cavity obstruction. Ejection fraction is normal. There is mild mitral annular calcification and aortic sclerosis. There is mild mitral and tricuspid insufficiency. No pericardial effusion Previewed by: Dr. Andrea Haas MD (Electronically Signed) Final Date: 16 October 2021 07:13
== END | disposition home or self-care (01) ==
LOC: RADECHMAIN 13:02
PROVIDERS: ATTEND Family Medicine
DX: I70.90 Unspecified atherosclerosis (principal); I08.0 Rheumatic disorders of both mitral and aortic valves
CPT/HCPCS: 93306

== ENCOUNTER → 2022-09-04 | Outpatient (CLI) | payer BC, MEDICARE ==
[2022-09-04 10:24] LABS: African American GFR (CKD) >90 (>60 ml/min/1.73 sqM); Blood Urea Nitrogen 13 mg/dL (9-20); Non-African American GFR(CKD) >90 (>60 ml/min/1.73 sqM)
--- NOTE | 2022-09-07 12:12 | CT ---
EXAMINATION TYPE: CT abdomen pelvis w con DATE OF EXAM: 09/04/2022 COMPARISON: 12/14/[address] 02/20/2022 HISTORY: 66-year-old male C25.0 f/u pancreatic ca. Patient status post Whipple procedure 01/17/2022. TECHNIQUE: Scanning of the abdomen and pelvis following administration of 70 ml Isovue 300 IV contras t. Arterial phase and portal venous scanning was performed per pancreas protocol. Coronal/sagittal r econstructions performed. CT DLP: 502.8 mGycm Automated exposure control for dose reduction was used. FINDINGS: The heart is normal size without pericardial effusion. Lung bases clear without pleural effusion. Liver mildly enlarged at 19.0 cm with a diminished attenuation suggesting fatty infiltration. No foca l liver lesion. The portal venous system shows a focal moderate to severe stenosis of the lower main portal vein just prior to the portal venous confluence. Otherwise patent. Redemonstrated posterior change of Whipple procedure. Mild dilatation main pancreatic duct to 5 mm. N o suspicious pancreatic mass is identified. No suspicious upper abdominal, mesenteric, retroperitoneal adenopathy seen. There is some soft tissue thickening in the region of the celiac axis and gastrohepatic ligament region, axial image 15. No dilated small bowel, free fluid, or free air. There is moderate to large stool burden. Segments of annular narrowing within the proximal sigmoid colon likely due to focal peristaltic contr actions. No pericolonic inflammatory change. Appendix not clearly identified. Adrenal glands, kidneys with extra renal pelves, spleen with tiny anterior splenule show no gross abn ormal body. Circumferential bladder wall thickening. Prostate gland is enlarged and 5.0 cm wide. No abnormal flui d collection in the pelvis or pelvic lymphadenopathy. Slight nodular mural thickening along the right base of the bladder, axial image 71 and coronal image 51. Possibly impression from the enlarged prostate gland. Bones: [facility] mid and lower thoracic spine. Chronic appearing superior endplate deformity L2. Baastrup' s disease lower lumbar spine. Degenerative grade 1 retrolisthesis L2-L3, L3-L4, and L4-L5. Hypertroph ic facet arthropathy throughout. IMPRESSION: 1. STATUS POST WHIPPLE PROCEDURE. SOME SOFT TISSUE THICKENING AROUND THE CELIAC AXIS AND GASTROHEPATI C LIGAMENT REGION LIKELY CHRONIC POSTTREATMENT CHANGE AND SCARRING. ATTENTION ON FOLLOW-UP. OTHERWISE , NO EVIDENCE FOR LOCOREGIONAL RECURRENCE OR METASTATIC DISEASE. 2. 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 3. MILD HEPATOMEGALY WITH HEPATIC STEATOSIS. 4. MODERATE TO LARGE STOOL BURDEN; CORRELATE FOR CONSTIPATION. 5. CIRCUMFERENTIAL BLADDER WALL THICKENING LIKELY CHRONIC BLADDER WALL HYPERTROPHY. THERE IS SLIGHT M URAL NODULAR THICKENING ALONG THE RIGHT BASE OF THE BLADDER, AXIAL IMAGE 71. PROBABLY IMPRESSION FROM THE ENLARGED PROSTATE GLAND. CORRELATE WITH URINALYSIS AND URINE CYTOLOGY. ATTENTION ON FOLLOW-UP. D IRECT VISUALIZATION IF INDICATED.
== END | disposition home or self-care (01) ==
LOC: RADCTMAIN 08:51
PROVIDERS: ATTEND Internal Medicine Hematology & Oncology
DX: C25.0 Malignant neoplasm of head of pancreas (principal); R19.7 Diarrhea, unspecified; D70.2 Other drug-induced agranulocytosis; K86.1 Other chronic pancreatitis; K76.0 Fatty (change of) liver, not elsewhere classified; R16.0 Hepatomegaly, not elsewhere classified; N40.0 Benign prostatic hyperplasia without lower urinary tract symptoms; Z90.411 Acquired partial absence of pancreas
CPT/HCPCS: 82565; 84520; 74177; 36415; Q9967